=== PATIENT | male | born 1950 | race Caucasian/White ===

== ENCOUNTER 2019-08-17 08:26 | Outpatient (CLI) | payer MEDICARE, MEDICAID, SELFPAY ==
--- NOTE | 2019-08-17 08:33 | MR_ITS ---
WS: [id number] MRI LUMBAR SPINE NONCONTRAST TECHNIQUE: Sagittal T1, T2 and STIR imaging. Axial T1 and T2 imaging. CLINICAL INFORMATION: OTHER SPONDYLOSIS W/RADICULOPATHY LUMBAR REGION COMPARISON: None. FINDINGS: Mild lumbar curve. No acute compression. Mild disc bulging L4-L5 and L5-S1. L1-L2: Tiny right pericentral protrusion. Spinal canal and foramen are patent. Mild facet arthropathy . L2-L3: Mild annular bulging with slight effacement of ventral thecal sac. Spinal canal and foramen ar e patent. Mild facet arthropathy. L3-L4: Mild annular bulging with slight effacement of ventral thecal sac. Spinal canal and foramen ar e patent. Mild facet arthropathy. L4-L5: Mild disc bulging with small broad-based central protrusion. Mild central canal stenosis. Narr owing of the subarticular recess bilaterally. Encroachment traversing L5 nerve roots. Mild bilateral foraminal narrowing. Mild facet arthropathy. L5-S1: Mild annular bulging with effacement of ventral thecal sac. Mild central canal stenosis. Encro achment traversing right greater than left S1 nerve roots. Foramen are patent. Mild facet arthropathy . Tiny central protrusion the lower thoracic spine at T11-T12 and T12-L1. Partially visualized left caitlin al cyst measuring 3.8 cm MR/MR lumbar spine wo con* [id number] IMPRESSION: 1. Mild lumbar curve. No acute compression. No high-grade central canal stenos is. 2. Disc bulging L4-5 with mild central canal stenosis and narrowing of the sub articular recess bilaterally. Mild bilateral foraminal narrowing at this level. 3. Annular bulging L5-S1 with slight encroachment traversing right greater anthony n left S1 nerve roots. Mild central canal stenosis. 4. Mild facet arthropathy L4-L5 and L5-S1. 5. Partially visualized left renal cyst measuring 3.8 cm.
== END 2019-08-17 08:27 | disposition home or self-care (01) ==
LOC: RAD 08:31
PROVIDERS: Family Provider Family Medicine; PCP Family Medicine; Visit Provider Family Medicine
DX: M47.26 Other spondylosis with radiculopathy, lumbar region (principal)
CPT/HCPCS: 72148

== ENCOUNTER 2019-08-22 19:39 | Inpatient (IN) | payer MEDICARE, MEDICAID, SELFPAY ==
[2019-08-22 19:56] VITALS: BP 141/112; PULSE 124; RESP 18; TEMP 36.7; O2SAT 95; BMI 27.3
[2019-08-22 20:34] LABS: Rapid Strep A Test Negative (Negative)
--- NOTE | 2019-08-22 21:22 | ED_ITS ---
Entered by Elin Arriola, acting as scribe for Ingrid Bhat Shemar Aug 22, 2019 19:39 HPI - General Adult General: Chief complaint: General Medical Stated complaint: ETOH Time Seen by Provider: 08/22/19 21:21 Source: patient Mode of arrival: ambulatory Limitations: no limitations History of Present Illness: HPI narrative: 68 yo m came to the er by [facility]. Onset was today. Pt states that his nephew a few days ago and started drinking again. Pt states that he is afraid and that he is going through withdraws. Pt states that when he stops drinking he starts to shake, seen things that were not there and seizures. complaint: etoh Onset (ago): day(s) (today) Radiation: non-radiation Severity: mild Relieving factors: none Exacerbating factors: none Associated symptoms: Reports no associated symptoms Treatments prior to arrival: none Review of Systems General: Reports: other (negative unless marked) Psych: Denies: suicidal ideation or homicidal ideation PFSH ED PFSH: Statuses (acute, chronic, etc) shown below reflect problem list status as previously entered and may not be historically accurate Medical History (Updated 08/22/19 @ 23:51 by Merritt Buckner MD) Alcohol withdrawal (Acute) Anxiety and depression (Acute) BPH (benign prostatic hyperplasia) (Acute) Chronic back pain (Acute) GERD (gastroesophageal reflux disease) (Acute) Hypertension (Acute) Surgical History (Updated 08/22/19 @ 23:44 by Merritt Buckner MD) History of back surgery (Acute) Social History (Updated 08/22/19 @ 23:45 by Merritt Buckner MD) Smoking and tobacco status: current every day smoker Alcohol intake: current Alcohol intake frequency: 3 or more drinks per day Alcohol type: hard liquor Substance/Drug Use: never Physical Exam Const: COMMON NORMALS: oriented x3 and alert EXAM LIMITATIONS: no altered mental status GENERAL APPEARANCE: cooperative, well kempt and well developed ORIENTATION/CONSCIOUSNESS: Yes oriented to person, Yes oriented to place and Yes oriented to time HENMT: COMMON NORMALS: normocephalic, head/scalp atraumatic, hearing grossly normal bilaterally, external ears normal, EAC's normal, external nose normal and moist oral mucous membranes HEAD & SCALP: normal to inspection, normocephalic and atraumatic FACE & SINUS: normal facial exam and face symmetric NOSE: external nose normal and nares normal EXTERNAL EAR: Yes external ears normal EXTERNAL AUDITORY CANAL: EAC's normal MOUTH: oral and palatal mucosa normal and tongue normal Eye: COMMON NORMALS: PERRL, EOMs intact bilaterally, conjunctivae normal and no scleral icterus GENERAL EYE: normal appearance of both eyes and normal light reflex CONJUNCTIVA: Yes conjunctivae normal SCLERA: sclerae normal CORNEA: Yes corneas normal PUPIL: Yes PERRL DIRECT OPHTHALMOSCOPY: Yes normal light reflex Neck/C-Spine: COMMON NORMALS: full ROM, no lymphadenopathy, supple, no meningeal signs and no JVD GENERAL: Yes normal visual inspection and Yes trachea midline CERVICAL SPINE: Yes cervical ROM normal Chest: COMMONS NORMALS: inspection of chest normal and palpation of chest normal Resp: COMMON NORMALS: normal respiratory effort, no retractions, no use of accessory muscles and clear to auscultation bilaterally EFFORT & INSPECTION: Yes able to speak in complete sentences AUSCULTATION: clear to auscultation bilaterally Cardio: COMMON NORMALS: no JVD, regular rate, regular rhythm, S1 normal heart sound, S2 normal heart sound, no gallops, no clicks, no murmurs and no rub JUGULAR VENOUS DISTENTION: no JVD RATE: regular rate RHYTHM: regular rhythm HEART SOUNDS: S1 normal and S2 normal GI: COMMON NORMALS: soft to palpation, non-tender, no hepatosplenomegaly and no masses INSPECTION: Yes normal to inspection PALPATION: Yes soft and Yes no hepatosplenomegaly : COMMON NORMALS: Yes no CVA tenderness BLADDER/KIDNEY EXAM: Yes no CVA tenderness Back/Pelvis: COMMON NORMALS: no CVA tenderness, thoracic and lumbar spine normal to inspection, no thoracic nor lumbar tenderness and thoraco-lumbar ROM normal Extremity: COMMON NORMALS: normal to inspection, full ROM, normal capillary refill, no joint enlargement, no clubbing, cyanosis or edema and no calf tenderness Neuro: COMMON NORMALS: oriented x3 and moves all extremities SENSORIUM/ORIENTATION: Yes alert, Yes oriented to person, Yes oriented to place and Yes oriented to time MENINGEAL SIGNS: Yes no meningeal signs OTHER: Patient tremulous with shaking. Is able to ambulate without ataxia. Psych: COMMON NORMALS: mental status grossly normal, thought process normal, cooperative, affect normal, speech normal and activity/motor behavior normal APPEARANCE: Yes well kempt SPEECH: Yes normal speech THOUGHT PROCESS: normal thought process Skin: COMMON NORMALS: no rashes or lesions noted, skin turgor normal, no jaundice, no petechiae and no mottling GENERAL SKIN EXAM: no rashes or lesions noted and turgor normal Course Vital Signs: Vital signs: Vital Signs Temperature 97.9 F 08/23/19 02:00 Pulse Rate 99 08/23/19 10:00 Respiratory Rate 24 H 08/23/19 10:00 Blood Pressure 158/89 08/23/19 10:00 Pulse Oximetry 96 08/23/19 08:00 [facility] - General Adult Lab Data: Labs: Lab Results 08/22/19 08/22/19 08/22/19 Range/Units 20:08 22:00 22:15 WBC 12.3 H (4.0-10.0) 10^3/ uL RBC 5.25 (4.1-5.3) 10^6/u L Hgb 14.7 (11.7-16.6) g/dL Hct 45.2 (42.0-52.0) % MCV 86.1 (80-94) fL MCH 28.0 (28.0-34.0) pg MCHC 32.5 (30.0-36.0) g/dL RDW 15.0 (12.1-15.1) % Plt Count 159 (130-400) 10^3/c mm MPV 10.1 (7.4-10.4) fL Neut % (Auto) 78.2 % Lymph % (Auto) 12.7 % Dickson % (Auto) 8.1 % Eos % (Auto) 0.4 % Baso % (Auto) 0.2 % Neut # (Auto) 9.6 H (1.8-7.7) 10^3/u L Lymph # (Auto) 1.6 (0.8-4.8) 10^3/u L Dickson # (Auto) 1.0 H (0.2-0.9) 10^3/u L Eos # (Auto) 0.1 (0.0-0.8) 10^3/u L Baso # (Auto) 0.0 (0.0-0.1) 10^3/u L Nucleated RBC % (a uto) 0 % Nucleated RBCs # 0.0 /100WBC Specimen Type Arterial Sample Site Radial, right ABG pH 7.50 H (7.35-7.45) ABG pCO2 28.1 L (35-45) mmHg ABG pO2 84.6 (80.0-100.0) mmH g ABG HCO3 22.1 (22-26) mmol/L ABG Base Excess 0.3 (-2.0-2.0) mmol/ L Kevin Test Pos Hematocrit 47.0 (42-52) % O2 Delivery Device Room air Oven Attendant ID harkr Sodium (136-145) mmol/L Potassium (3.5-5.1) mmol/L Chloride (98-107) mmol/L Carbon Dioxide (22-29) mmol/L Anion Gap (5-19) BUN (8-23) mg/dL Creatinine (0.7-1.2) mg/dL GFR Calculation (90-130) mL/min Glucose (65-115) mg/dL Calcium (8.5-10.5) mg/dL Magnesium (1.7-2.3) mg/dL Total Bilirubin (0.15-1.2) mg/dL AST (0-40) U/L ALT (0-41) U/L Alkaline Phosphata se (40-130) IU/L Creatine Kinase (39-308) U/L Total Protein (6.6-8.7) g/dL Albumin (3.5-5.2) g/dL Globulin (1.3-4.6) g/dL Ethyl Alcohol (0-10) mg/dL Serum Ketones (Negative) Group A Strep Rapi d Negative (Negative) 08/22/19 08/22/19 Range/Units 22:15 22:15 WBC (4.0-10.0) 10^3/ uL RBC (4.1-5.3) 10^6/u L Hgb (11.7-16.6) g/dL Hct (42.0-52.0) % MCV (80-94) fL MCH (28.0-34.0) pg MCHC (30.0-36.0) g/dL RDW (12.1-15.1) % Plt Count (130-400) 10^3/c mm MPV (7.4-10.4) fL Neut % (Auto) % Lymph % (Auto) % Dickson % (Auto) % Eos % (Auto) % Baso % (Auto) % Neut # (Auto) (1.8-7.7) 10^3/u L Lymph # (Auto) (0.8-4.8) 10^3/u L Dickson # (Auto) (0.2-0.9) 10^3/u L Eos # (Auto) (0.0-0.8) 10^3/u L Baso # (Auto) (0.0-0.1) 10^3/u L Nucleated RBC % (a uto) % Nucleated RBCs # /100WBC Specimen Type Sample Site ABG pH (7.35-7.45) ABG pCO2 (35-45) mmHg ABG pO2 (80.0-100.0) mmH g ABG HCO3 (22-26) mmol/L ABG Base Excess (-2.0-2.0) mmol/ L Kevin Test Hematocrit (42-52) % O2 Delivery Device Oven Attendant ID Sodium 135 L (136-145) mmol/L Potassium 3.3 L (3.5-5.1) mmol/L Chloride 99 (98-107) mmol/L Carbon Dioxide 20 L (22-29) mmol/L Anion Gap 19.3 H (5-19) BUN 26 H (8-23) mg/dL Creatinine 1.1 (0.7-1.2) mg/dL GFR Calculation 66.6 L (90-130) mL/min Glucose 100 (65-115) mg/dL Calcium 9.4 (8.5-10.5) mg/dL Magnesium 1.5 L (1.7-2.3) mg/dL Total Bilirubin 0.7 (0.15-1.2) mg/dL AST 81 H (0-40) U/L ALT 44 H (0-41) U/L Alkaline Phosphata se 83 (40-130) IU/L Creatine Kinase 1070 H* (39-308) U/L Total Protein 6.6 (6.6-8.7) g/dL Albumin 3.7 (3.5-5.2) g/dL Globulin 2.9 (1.3-4.6) g/dL Ethyl Alcohol 138 H (0-10) mg/dL Serum Ketones Negative (Negative) Group A Strep Rapi d (Negative) Discharge Plan Discharge Patient Disposition: Placed in Observation Admit Provider: Merritt Buckner Discharge Date/Time: 08/23/19 01:49 Coding Level of Care Code ED Activities Concierge for Chg Fwd Exam Problem Focused The documentation recorded by the Flako jackson Stephanie Lyn, accurately reflects the service I personally performed and the decisions made by Home cristina Eli N Aug 22, 2019 19:39
--- NOTE | 2019-08-22 21:48 | XR_ITS ---
WS: [id number] Portable AP upright chest, 08/22/2019 Clinical Data: cough Comparison: Portable chest, 02/20/2019 Findings: No nodules, masses or effusions are seen. The heart is normal. The pulmonary vascularity is not increased. No pneumonia or pneumothorax is seen. The aortic arch and descending aorta show mild tortuosity. XR/XR chest 1V portable [id number] Impression: Atherosclerosis.
--- NOTE | 2019-08-22 21:49 | ECG_ITS ---
Measurements Intervals [place] Rate: 110 P: 51 CT: 156 QRS: 13 QRSD: 98 T: -7 QT: 355 QTc: 480 SINUS TACHYCARDIA POSSIBLE INFERIOR MYOCARDIAL INFARCTION , PROBABLY OLD [30 ms Q WAVE IN II/aVF] ABNORMAL RHYTHM ECG Compared to ECG 12/23/2018 11:53:18 Myocardial infarct finding now present Electronically Signed On 08-23-2019 16:29:56 RESIDENTIAL CAREGIVER by Eb Alvarenga M.D. [email or web address]
[2019-08-22] MEDS: ondansetron 2 mg/ML SDV 2 mL 4 MG IVP (22:00)
[2019-08-22] MEDS: sodium chloride 0.9% 2,449.41 ML 2449.4 ML IV (22:06)
[2019-08-22 22:11] LABS: ABG PCO2 28.1 mmHg (35-45); Base Excess ABG 0.3 mmol/L (-2.0-2.0); Blood Gas Allen Test Pos; Blood Gas Sample Site Radial, right; Blood Gas Sample Type Arterial; HCO3 ABG 22.1 mmol/L (22-26); Oxygen Device ROOM AIR; PO2 ABG 84.6 mmHg (80.0-100.0)
[2019-08-22] MEDS: LORazepam 2 mg/mL INJ 1 mL 1 MG IVP ×2 (22:23→23:01)
[2019-08-22 22:24] LABS: Basophils % 0.2 %; Eosinophils # 0.1 10^3/uL (0.0-0.8); Eosinophils % 0.4 %; Hematocrit 45.2 % (42.0-52.0); Hemoglobin 14.7 g/dL (11.7-16.6); Lymphocytes # 1.6 10^3/uL (0.8-4.8); Lymphocytes % 12.7 %; Mean Corpuscular HGB Conc 32.5 g/dL (30.0-36.0); Mean Corpuscular Volume 86.1 fL (80-94); Mean Platelet Volume 10.1 fL (7.4-10.4); Monocytes % 8.1 %; Neutrophils # 9.6 10^3/uL (1.8-7.7); Neutrophils % 78.2 %; Nucleated Red Blood Cells % 0 %; Platelet Count 159 10^3/cmm (130-400); Red Blood Count 5.25 10^6/uL (4.1-5.3); White Blood Count 12.3 10^3/uL (4.0-10.0)
[2019-08-22 22:39] LABS: Alanine Aminotransferase 44 U/L (0-41); Albumin Level 3.7 g/dL (3.5-5.2); Alcohol Level 138 mg/dL (0-10); Alkaline Phosphatase 83 IU/L (40-130); Anion Gap 19.3 (5-19); Aspartate Amino Transferase 81 U/L (0-40); Blood Urea Nitrogen 26 mg/dL (8-23); Calcium 9.4 mg/dL (8.5-10.5); Carbon Dioxide 20 mmol/L (22-29); Chloride 99 mmol/L (98-107); Globulin 2.9 g/dL (1.3-4.6); Glomerular Filtration Rate 66.6 mL/min (90-130); Glucose 100 mg/dL (65-115); Magnesium 1.5 mg/dL (1.7-2.3); Potassium 3.3 mmol/L (3.5-5.1); Sodium 135 mmol/L (136-145); Total Bilirubin 0.7 mg/dL (0.15-1.2); Total Protein 6.6 g/dL (6.6-8.7)
[2019-08-22 22:45] LABS: Creatine Phosphokinase 1070 U/L (39-308)
[2019-08-22] MEDS: magnesium sulfate premix 2 GM/50 ML PIGGYBACK IV (23:02)
[2019-08-22 23:03] LABS: Ketone (Acetest) Serum Negative (Negative)
[2019-08-22] MEDS: LORazepam 2 mg/mL INJ 1 mL IVP (23:24)
[2019-08-22] MEDS: chlordiazePOXIDE 25 mg Capsule PO (23:29)
--- NOTE | 2019-08-22 23:36 | P.HP_ITS ---
Providers/Chief Complaint Primary Care Provider: Randal Peralta MD Chief Complaint: DTS History of Present Illness Julio Mccann is a 68 year old male with a past medical history of hypertension, depression anxiety, hyperlipidemia, BPH, history of alcohol dependence, history of delirium tremens and alcohol withdrawal seizures who p resents to the emergency room due to the shakes. 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 Denies other drug use. Does use Ultram for back pain. Does use Xanax for anxiety. Denies using medication with alcohol. Patient states that over the last month he has lost 2 nephews, one nephew a few weeks ago 37 years old, another nephew on his sister's side because of alcohol related disease. Patient states that he has felt down, depressed and sad. Denies current history of suicidal ideation. But does have a history of suicidal ideation in the past. No history of attempts. Denies homicidal ideation. Patient denies a history of alcohol cirrhosis. Denies a history of esophageal varices. Denies history of hemoptysis. Currently patient states that he feels very nauseous, has vomited, has significant tremors of his entire extremities, is having intermittent episodes of difficulty swallowing, is having palpitations, intermittent episodes of chest pain, is having visual and tactile hallucinations, is feeling anxious, no diarrhea, no abdominal pain. Review of Systems Const: Denies: fever, chills, fatigue or malaise Eyes: Reports: other (Visual hallucinations); Denies: change in vision ENMT: Reports: bad breath, disequilibrium and other (Dysphagia); Denies: nasal congestion Card: Reports: chest pain and palpitations Resp: Denies: shortness of breath, productive cough, non-productive cough or wheezing GI: Reports: nausea and vomiting; Denies: abdominal pain, vomiting blood, diarrhea, constipation, blood in stool or black tarry stool : Denies: flank pain, difficulty urinating, painful urination or urinary frequency Musc: Denies: neck pain or back pain Skin/Breast: Denies: rash Neuro: Reports: frequent falls; Denies: headache, dizziness or vertigo Psych: Reports: anxiety, depression, visual hallucinations and tactile hallucinations; Denies: auditory hallucinations, suicidal ideation or homicidal ideation Endo: Reports: excessive sweating; Denies: excessive urination or excessive thirst Medications/Allergies Home Medications Medication Instructions Recorded Confirmed Last Taken Type No Known Home Medications 08/22/19 08/22/19 Unknown History Allergies Allergy/AdvReac Type Severity Reaction Status Date / Time No Known Allergies Allergy Verified 08/22/19 20:02 Additional Medication Information Additional Medication Information: Patient states that he uses Klonopin, unsure of the dose, supposed to be using once daily, but has not been using it Uses Ultram 50 mg 3 times daily Uses Flexeril once daily, unsure of the dose Uses gabapentin 600 mg in the morning, 300 mg the afternoon, 200 mg at bedtime States that he uses 3 different blood pressure medications but is unsure which ones PFSH Acute PFSH: Statuses (acute, chronic, etc) shown below reflect problem list status as previously entered and may not be historically accurate Medical History (Updated 08/22/19 @ 23:51 by Merritt Buckner MD) Alcohol withdrawal (Acute) Anxiety and depression (Acute) BPH (benign prostatic hyperplasia) (Acute) Chronic back pain (Acute) GERD (gastroesophageal reflux disease) (Acute) Hypertension (Acute) Surgical History (Updated 08/22/19 @ 23:44 by Merritt Buckner MD) History of back surgery (Acute) Social History (Updated 08/22/19 @ 23:45 by Merritt Buckner MD) Smoking and tobacco status: current every day smoker Alcohol intake: current Alcohol intake frequency: 3 or more drinks per day Alcohol type: hard liquor Substance/Drug Use: never Vitals/I&O/Wt Last Vital Signs Temp 98.1 F 08/22/19 19:56 Pulse 124 H 08/22/19 19:56 Resp 18 08/22/19 19:56 BP 141/112 08/22/19 19:56 Pulse Ox 95 08/22/19 19:56 Weight last 48 hrs Weight 81.647 kg Physical Exam Const: COMMON NORMALS: oriented x3 GENERAL APPEARANCE: cooperative, anxious and disheveled HENMT: COMMON NORMALS: normocephalic Eye: COMMON NORMALS: PERRL and EOMs intact bilaterally Neck/C-Spine: COMMON NORMALS: full ROM and no lymphadenopathy Lymph: LYMPHATIC: no lymphadenopathy noted Chest: COMMONS NORMALS: inspection of chest normal Resp: COMMON NORMALS: normal respiratory effort, no retractions, no use of accessory muscles, clear to auscultation bilaterally and percussion normal Cardio: COMMON NORMALS: no JVD, S1 normal heart sound, S2 normal heart sound, no clicks, no murmurs, no rub and peripheral pulses 2+ throughout RATE: tachycardic RHYTHM: regular rhythm GI: COMMON NORMALS: normal to inspection, nondistended, normoactive bowel sounds, soft to palpation and non-tender : COMMON NORMALS: Yes no CVA tenderness Back/Pelvis: COMMON NORMALS: no CVA tenderness Extremity: COMMON NORMALS: normal capillary refill, no clubbing, cyanosis or edema and no pedal edema Neuro: COMMON NORMALS: oriented x3, CN's II-XII intact bilaterally, moves all extremities and no focal motor deficits Psych: COMMON NORMALS: mental status grossly normal, denies homicidal ideation and denies suicidal ideation APPEARANCE: Yes unkempt ACTIVITY/MOTOR BEHAVIOR: Yes psychomotor agitation SPEECH: Yes rapid THOUGHT CONTENT: Yes normal thought content, No suicidality and No homicidality Skin: COMMON NORMALS: no rashes or lesions noted and no jaundice Data : 08/22/19 22:15 08/22/19 22:15 A&P Assessment and plan (1) Alcohol withdrawal: -Patient currently CIWA score is 16, severe alcohol withdrawal, with visual hallucinations, tactile hallucinations, tachycardia, hypertension, tachypnea, diaphoresis, nausea, vomiting, intermittent episodes of dysphasia, chest pain, palpitations -In the emergency room patient has received a total of 4 mg of Ativan, 100 mg of Librium, still has a CIWA score of approximately 16 -Has a history of alcohol withdrawal seizures and delirium tremens -I am very worried about patient's high risk of delirium tremens, currently not in the window as last alcohol drink was over 12 hours ago -Patient is agreeable to elective intubation and mechanical ventilation if required Plan: -CIWA protocol, thiamine, folic acid, banana bag -Librium 50 mg every 4 hours -If patient CIWA score remains greater than 16, will give him a dose of Versed as needed -If patient becomes agitated, might require soft restraints -N.p.o., aspiration precautions, seizure precautions, neurochecks -Replete potassium, replete magnesium -Patient is okay with elective intubation and mechanical ventilation if CIWA greater than 16, and difficult to control Status: Acute Code(s): F10.239 - Alcohol dependence with withdrawal, unspecified (2) Anxiety and depression: Status: Acute Code(s): F41.9 - Anxiety disorder, unspecified; F32.9 - Major depressive disorder, single episode, unspecified (3) BPH (benign prostatic hyperplasia): Status: Acute Code(s): N40.0 - Benign prostatic hyperplasia without lower urinary tract symptoms (4) Hypertension: Currently hypertensive urgency secondary to alcohol withdrawal Patient takes 3 blood pressure medications at home but is unsure which ones Start metoprolol 50 twice daily Norvasc 5 mg once daily Will avoid nephrotoxic agents given elevated CPK, and risk of nephropathy Labetalol as needed If blood pressure remains elevated will have to start Cardene drip Status: Acute Code(s): I10 - Essential (primary) hypertension (5) GERD (gastroesophageal reflux disease): Status: Acute Code(s): K21.9 - Gastro-esophageal reflux disease without esophagitis (6) Chronic back pain: Status: Acute Code(s): M54.9 - Dorsalgia, unspecified; G89.29 - Other chronic pain (7) Hypokalemia: Will replete Status: Acute Code(s): E87.6 - Hypokalemia (8) Hypomagnesemia: Will replete Status: Acute Code(s): E83.42 - Hypomagnesemia (9) Rhabdomyolysis: Secondary to fall, and alcohol withdrawal Will receive IV hydration, trend CPK Status: Acute Code(s): M62.82 - Rhabdomyolysis Attestations Medical Necessity Statement*: Patient requires inpatient admission, greater than 2 midnights, for severe alcohol withdrawal, rhabdomyolysis, hypomagnesemia, hypokalemia, dehydration Coding Level of Care Code Acute Wire Mesh Filter Fabricator for [facility] Fwd Diagnoses Alcohol withdrawal F10.239 Anxiety and depression F41.9; F32.9 BPH (benign prostatic hyperplasia) N40.0 Hypertension I10 GERD (gastroesophageal reflux disease) K21.9 Chronic back pain M54.9; G89.29 Hypokalemia E87.6 Hypomagnesemia E83.42 Rhabdomyolysis M62.82
[2019-08-22 23:39] VITALS: BP 204/142; PULSE 108; RESP 15; O2SAT 93
[2019-08-23] VITALS (42 sets, daily range): BP systolic 133–167; BP diastolic 78–107; PULSE 77–122; RESP 14–30; TEMP 36.6–36.9; O2SAT 90–97
--- NOTE | 2019-08-23 00:05 | PC.NURSE ---
Patient is gowned.
--- NOTE | 2019-08-23 00:34 | PC.NURSE ---
Patient requested food, okayed by Dr. Kumar, sandwich was given.
[2019-08-23] MEDS: LORazepam 2 mg/mL INJ 1 mL 1 MG IVP (01:35)
--- NOTE | 2019-08-23 01:53 | US_ITS ---
WS: [id number] RIGHT UPPER QUADRANT ULTRASOUND HISTORY: liver cirrhosis COMPARISON: 02/14/2014 Liver: 17.4 cm in length. Liver is mildly enlarged. Diffuse coarsened echotexture. Surface of the artur er is slightly irregular. No mass identified. The entire liver cannot be evaluated due to attenuation . No biliary dilatation. Gallbladder: Normally distended gallbladder with no stones or wall thickening. CBD: 5.1 mm Pancreas: Normal size and echogenicity. Right kidney: 11.9 cm in length. Normal size kidney. Focal cortical thinning and scarring in the cent ral kidney. No obstruction or solid mass. Aorta and IVC: Unremarkable. No ascites. US/US liver [id number] IMPRESSION: 1. Moderate hepatic steatosis. Additional changes suspicious for cirrhosis. 2. Normal gallbladder. 3. Focal cortical scar mid RIGHT kidney, unchanged since 02/20/2019.
--- NOTE | 2019-08-23 01:53 | ECG_ITS ---
Measurements Intervals [place] Rate: 87 P: 53 SD: 163 QRS: 14 QRSD: 93 T: 51 QT: 388 QTc: 468 SINUS RHYTHM WARNING: DATA QUALITY MAY AFFECT INTERPRETATION Compared to ECG 12/23/2018 11:53:18 Sinus tachycardia no longer present Electronically Signed On 08-23-2019 16:31:27 KRAFT MILL OPERATOR by Eb Alvarenga M.D. [id number]
[2019-08-23] MEDS: chlordiazePOXIDE 25 mg Capsule 50 MG PO ×6 (02:22→21:02)
[2019-08-23] MEDS: metoprolol tartrate 25 mg Tablet PO ×3 (02:22→18:43)
[2019-08-23] MEDS: folic acid 1 MG, multivitamin inj 10 ML, thiamine 100 MG in sodium chloride 0.9% 1,000 ML 252.8 MG IV (02:22)
[2019-08-23] MEDS: sodium chloride 0.9% 1,000 ML 125 ML IV ×3 (02:23→21:00)
[2019-08-23 02:30] LABS: Gamma Glutamyl Transferase 23 U/L (61-)
[2019-08-23 02:31] LABS: Ammonia 34 umol/L (16-60); Troponin(5th) Baseline 14 ng/mL (0-15)
[2019-08-23 03:02] LABS: INR 1.15 (0.8-1.2)
[2019-08-23] MEDS: LORazepam 2 mg/mL INJ 1 mL IM (04:30)
[2019-08-23 04:52] LABS: Basophils % 0.2 %; Eosinophils # 0.1 10^3/uL (0.0-0.8); Eosinophils % 1.3 %; Hematocrit 39.7 % (42.0-52.0); Hemoglobin 12.9 g/dL (11.7-16.6); Lymphocytes # 1.8 10^3/uL (0.8-4.8); Lymphocytes % 19.7 %; Mean Corpuscular HGB Conc 32.5 g/dL (30.0-36.0); Mean Corpuscular Hemoglobin 28.9 pg (28.0-34.0); Monocytes # 0.8 10^3/uL (0.2-0.9); Monocytes % 8.7 %; Neutrophils # 6.3 10^3/uL (1.8-7.7); Neutrophils % 69.9 %; Nucleated Red Blood Cells % 0 %; Platelet Count 131 10^3/cmm (130-400); Red Blood Count 4.46 10^6/uL (4.1-5.3); Red Cell Distribution Width 15.2 % (12.1-15.1); White Blood Count 9.1 10^3/uL (4.0-10.0)
[2019-08-23 05:10] LABS: Magnesium 1.8 mg/dL (1.7-2.3); Phosphorus 2.1 mg/dL (2.5-4.5)
[2019-08-23 05:11] LABS: Alanine Aminotransferase 35 U/L (0-41); Alkaline Phosphatase 68 IU/L (40-130); Anion Gap 13.9 (5-19); Aspartate Amino Transferase 69 U/L (0-40); Blood Urea Nitrogen 20 mg/dL (8-23); Calcium 8.7 mg/dL (8.5-10.5); Carbon Dioxide 21 mmol/L (22-29); Chloride 107 mmol/L (98-107); Creatinine Clr Calc Pharmacy 81.8876; Globulin 2.4 g/dL (1.3-4.6); Glomerular Filtration Rate 83.9 mL/min (90-130); Glucose 105 mg/dL (65-115); Potassium 3.9 mmol/L (3.5-5.1); Sodium 138 mmol/L (136-145); Total Bilirubin 0.9 mg/dL (0.15-1.2); Total Protein 5.4 g/dL (6.6-8.7)
[2019-08-23 05:12] LABS: Troponin 5 2HR 13.87 ng/mL (0-15)
[2019-08-23 05:13] LABS: Creatine Phosphokinase 1187 U/L (39-308); Troponin 5 2HR Delta -0.13 ABS# (0-10)
--- NOTE | 2019-08-23 05:40 | ECG_ITS ---
Measurements Intervals [place] Rate: 109 P: 56 VT: 162 QRS: 4 QRSD: 94 T: 42 QT: 353 QTc: 475 SINUS TACHYCARDIA ABNORMAL RHYTHM ECG WARNING: DATA QUALITY MAY AFFECT INTERPRETATION Compared to ECG 12/23/2018 11:53:18 No significant changes Electronically Signed On 08-23-2019 16:37:50 EARLY BREASTFEEDING CARE SPECIALIST by Eb Alvarenga M.D. [id number]
[2019-08-23 08:47] LABS: Troponin 5 6HR 16.09 ng/L (0-15); Troponin 5 6HR Delta 2.09 ng/L (0-12)
[2019-08-23] MEDS: folic acid 1 mg Tablet PO (08:48)
[2019-08-23] MEDS: amlodipine 10 mg Tablet PO (08:48)
[2019-08-23] MEDS: venlafaxine 75 mg Tablet PO (08:48)
[2019-08-23] MEDS: thiamine 100 mg Tablet PO (08:48)
[2019-08-23] MEDS: LORazepam 2 mg Tablet PO ×2 (08:48→11:31)
[2019-08-23] MEDS: multivitamin therapeutic Tablet 1 TAB PO (08:49)
--- NOTE | 2019-08-23 11:53 | PC.CHAP ---
Pastoral Care Encounter/Spiritual Assessment Type of Contact [] Declined rubber trimmer visit [] Patient/Family/Request visit [] Outpatient visit [] Follow-up visit [] Physician referral [] Code/Alert [] Routine visit [] Staff referral [] Actively dying [x] Patient sleeping [] Family support [] [] Out of room [] Palliative care [] [] Receiving care in room [] Pre-surgical visit [] Trauma [] Long length of stay [] ICU visit [] Other: Relational/Emotional Strength [] Patient feels connected with others/family/visitors/staff [] Distress [] Loneliness/isolation [] Abandonment Spirituality of Patient [] Person of Sepideh [] Attends Yazdanism of their Sepideh [] Believes in Prayer [] Reads Bible or Congregation materials [] There are Spiritual issues to be addressed Commissioner Of Conciliation Interventions [x] Prayer [] Active listening [] Non-anxious presence [] Spiritual/emotional support [] Crisis/trauma care [] Spiritual counseling [] Bereavement support [] Provided bereavement packet [] Provided Bible/devotional materials [] Provided toy/stuffed animal, coloring book to patient or family member [] Provided Communion [] Anointing/[place] [] Salvation [] Completed spiritual assessment [] Other: Impact on Illness or Injury [] Angry [] Fearful [] Anxious [] Often cries [] Exhaustion [] Unable to work [] Unable to attend methodist [] Unable to walk/stand [] Unable to read [] Unable to drive [] Unable to eat/drink [] Unable to sleep [] Unable to be with family [] Patient intubated [] Other: Summary Patient was sleeping and prayer was provided. Time spent with patient 2 minutes
[2019-08-23] MEDS: gabapentin 300 mg Capsule PO (13:52)
--- NOTE | 2019-08-23 18:04 | PM.PN ---
Subjective Subjective: Interval history: Chart reviewed, patient seen and examined, extremely unsteady and unsafe on his feet, requiring frequent redirection. Due to significant fall risk will request one-on-one monitoring. Aware that he is in the hospital but then quickly falls asleep. Medications: Reviewed: Yes Medication Review Details: Current Medications Generic Name Dose Route Start Last Admin Trade Name Freq PRN Reason Stop Dose Admin Amlodipine Besylat e 10 mg 08/23/19 09:00 08/23/19 08:48 Norvasc PO 10 mg DAILY DEION Administration Chlordiazepoxide 50 mg 08/23/19 01:53 08/23/19 13:51 Librium PO 50 mg Q4H DEION Administration Folic Acid 1 mg 08/23/19 09:00 08/23/19 08:48 Folic Acid PO 1 mg DAILY DEION Administration Gabapentin 300 mg 08/23/19 12:00 08/23/19 13:52 Neurontin PO 300 mg DAILY@1200 DEION Administration Sodium Chloride 1,000 mls @ 125 m ls/hr 08/23/19 01:53 08/23/19 13:52 Sodium Chloride 0.9% IV 125 mls/hr .Q8H DEION Administration Lorazepam 2 mg 08/23/19 01:53 08/23/19 04:30 Ativan IM 2 mg PROTOCOL PRN Administration ALCOWD Protocol Lorazepam 2 mg 08/23/19 01:53 08/23/19 11:31 Ativan PO 2 mg PROTOCOL PRN Administration WITHDRAWAL Protocol Metoprolol Tartrat e 25 mg 08/23/19 01:53 08/23/19 08:48 Lopressor PO 25 mg BID DEION Administration Multivitamins Ther apeutic 1 tab 08/23/19 09:00 08/23/19 08:49 Multivitamin Tab PO 1 tab DAILY DEION Administration Thiamine Mononitra te 100 mg 08/23/19 09:00 08/23/19 08:48 Vitamin B-1 PO 100 mg DAILY DEION Administration Venlafaxine HCl 75 mg 08/23/19 09:00 08/23/19 08:48 Effexor PO 75 mg DAILY DEION Administration Vitals/I&O/Wt Last Vital Signs Temp 97.9 F 08/23/19 02:00 Pulse 94 08/23/19 14:00 Resp 24 H 08/23/19 14:00 BP 139/90 08/23/19 14:00 Pulse Ox 96 08/23/19 14:00 08/23/19 08/23/19 08/23/19 06:59 14:59 22:59 Intake Total 2499.41 / 2499.41 2851.2 / 2851.2 Balance 2499.41 / 2499.41 2851.2 / 2851.2 Weight last 48 hrs Weight 81.647 kg Physical Exam Const: COMMON NORMALS: no apparent distress GENERAL APPEARANCE: cooperative, comfortable and lethargic ORIENTATION/CONSCIOUSNESS: Yes awake, Yes oriented to place, Yes confused and Yes lethargic HENMT: COMMON NORMALS: normocephalic, head/scalp atraumatic, hearing grossly normal bilaterally and moist oral mucous membranes HEAD & SCALP: normocephalic and atraumatic Eye: COMMON NORMALS: PERRL, EOMs intact bilaterally and conjunctivae normal CONJUNCTIVA: Yes conjunctivae normal PUPIL: Yes PERRL Neck/C-Spine: COMMON NORMALS: full ROM GENERAL: Yes normal visual inspection and Yes trachea midline Resp: COMMON NORMALS: normal respiratory effort, no retractions, no use of accessory muscles and clear to auscultation bilaterally EFFORT & INSPECTION: Yes able to speak in complete sentences, Yes symmetric chest movement and No tachypneic AUSCULTATION: clear to auscultation bilaterally Cardio: COMMON NORMALS: regular rate, regular rhythm, S1 normal heart sound, S2 normal heart sound and no murmurs RATE: regular rate RHYTHM: regular rhythm HEART SOUNDS: S1 normal and S2 normal GI: COMMON NORMALS: normal to inspection, nondistended, normoactive bowel sounds, soft to palpation and non-tender PALPATION: Yes soft Extremity: COMMON NORMALS: normal to inspection, full ROM and no clubbing, cyanosis or edema; negative for no pedal edema Neuro: COMMON NORMALS: moves all extremities, no focal motor deficits and no sensory deficits noted SENSORIUM/ORIENTATION: Yes oriented to place and Yes lethargic GAIT: Yes ataxic Psych: COMMON NORMALS: mental status grossly normal, thought process normal, cooperative, affect normal and speech normal SPEECH: Yes normal speech THOUGHT PROCESS: normal thought process Skin: COMMON NORMALS: no rashes or lesions noted, no jaundice, no petechiae and no mottling GENERAL SKIN EXAM: no rashes or lesions noted Data : 08/23/19 04:30 08/23/19 04:30 A&P Assessment and plan (1) Alcohol withdrawal: -Long history of chronic alcohol abuse; EtOH of 138 on admission -Very high risk for withdrawal, currently delirious; has prior hx of DTs, withdrawal seizures -Continue scheduled Librium, CIWA protocol -Continue multivitamins, thiamine, folic acid daily -Continue IVF hydration -Fall/aspiration/seizure precautions -currently protecting his airway, no need for supplemental oxygen; continue to close monitoring of respiratory status -VSS; continue to monitor Status: Acute Qualifiers: Complication of substance-induced condition: with delirium Qualified Code(s): F10.231 - Alcohol dependence with withdrawal delirium Code(s): F10.239 - Alcohol dependence with withdrawal, unspecified (2) Rhabdomyolysis: -Secondary to fall and likely alcohol withdrawal -CPK >1000 range; continue to trend -on IVF hydration -renal function wnl -continued fall risk, strict fall precautions Status: Acute Qualifiers: Rhabdomyolysis type: traumatic Encounter type: initial encounter Qualified Code(s): T79.6XXA - Traumatic ischemia of muscle, initial encounter Code(s): M62.82 - Rhabdomyolysis Additional A&P Information -HTN -Depression, anxiety -Hyperlipidemia -BPH -continue meds as ordered -cardiac diet as tolerated -DVT ppx with SCDs, no AC for now given continued high fall risk -Dispo: home -Code status: FULL code -continue ICU care due to need for close monitoring and high risk for continued alcohol withdrawal Attestations Medical Necessity Statement*: Patient requires hospitalization for continued management of acute alcohol withdrawal, rhabdomyolysis. Time Spent in Patient Care: Greater than 35 minutes (>than 50% of time spent in counselling and/or direct pt care on unit). Critical Care Time: The high probability of a clinically significant, sudden or life threatening deterioration of the patient's [cardiovascular] system(s) required my full and direct attention, intervention and personal management. The critical care time is as shown. This time is in addition to time spent performing any reported procedures but includes the following: [x] Data and vital sign review and interpretation [x] Patient assessment, examination and intervention [x] Documentation [x] Medication orders and management Critical Care Time (min): 15 Coding Level of Care Code Acute Orthopedic Physician for Soni Hilliard Diagnoses Alcohol withdrawal F10.231 Complication of substance-induced condition: with delirium Rhabdomyolysis T79.6XXA Rhabdomyolysis type: traumatic Encounter type: initial encounter
[2019-08-23] MEDS: gabapentin 300 mg Capsule 600 MG PO (21:01)
[2019-08-24] VITALS (15 sets, daily range): BP systolic 125–152; BP diastolic 74–101; PULSE 77–107; RESP 23–29; TEMP 36.6–37.1; O2SAT 86–100
[2019-08-24] MEDS: chlordiazePOXIDE 25 mg Capsule 50 MG PO ×5 (02:54→20:59)
--- NOTE | 2019-08-24 02:57 | PC.NURSE ---
patient has sitter at bedside. took oral meds this evening but had gotten agitted with iv normal saline. patient refused to have ivf hooked back up after returning from using bathroom.
[2019-08-24 05:42] LABS: Magnesium 1.9 mg/dL (1.7-2.3)
[2019-08-24] MEDS: gabapentin 300 mg Capsule 600 MG PO ×2 (07:05→20:59)
[2019-08-24] MEDS: LORazepam 2 mg Tablet PO ×3 (07:10→20:59)
[2019-08-24 07:48] LABS: Creatine Phosphokinase 365 U/L (39-308)
--- NOTE | 2019-08-24 09:10 | PM.PN ---
Subjective Subjective: Interval history: Patient seen and examined, seems to be more alert and oriented today. Requesting to go out and smoke. CPK trending down to the 300s so we will discontinue IV fluid hydration. Sitter at bedside. Medications: Reviewed: Yes Medication Review Details: Current Medications Generic Name Dose Route Start Last Admin Trade Name Freq PRN Reason Stop Dose Admin Amlodipine Besylat e 10 mg 08/23/19 09:00 08/23/19 08:48 Norvasc PO 10 mg DAILY DEION Administration Chlordiazepoxide 50 mg 08/23/19 01:53 08/24/19 02:54 Librium PO 50 mg Q4H DEION Administration Folic Acid 1 mg 08/23/19 09:00 08/23/19 08:48 Folic Acid PO 1 mg DAILY DEION Administration Gabapentin 300 mg 08/23/19 12:00 08/23/19 13:52 Neurontin PO 300 mg DAILY@1200 DEION Administration Gabapentin 600 mg 08/23/19 21:00 08/24/19 07:05 Neurontin PO 600 mg BID@ DEION Administration Lorazepam 2 mg 08/23/19 01:53 08/23/19 04:30 Ativan IM 2 mg PROTOCOL PRN Administration ALCOWD Protocol Lorazepam 2 mg 08/23/19 01:53 08/24/19 07:10 Ativan PO 2 mg PROTOCOL PRN Administration WITHDRAWAL Protocol Metoprolol Tartrat e 25 mg 08/23/19 01:53 08/23/19 18:43 Lopressor PO 25 mg BID DEION Administration Multivitamins Ther apeutic 1 tab 08/23/19 09:00 08/23/19 08:49 Multivitamin Tab PO 1 tab DAILY DEION Administration Thiamine Mononitra te 100 mg 08/23/19 09:00 08/23/19 08:48 Vitamin B-1 PO 100 mg DAILY DEION Administration Venlafaxine HCl 75 mg 08/23/19 09:00 08/23/19 08:48 Effexor PO 75 mg DAILY DEION Administration Vitals/I&O/Wt Last Vital Signs Temp 98.4 F 08/24/19 00:00 Pulse 101 H 08/24/19 07:45 Resp 26 H 08/24/19 07:14 BP 137/98 08/24/19 07:14 Pulse Ox 100 08/24/19 07:45 02/01/0408/24/19 08/24/19 22:59 06:59 14:59 Intake Total 1731.667 / 4582.867 979.583 / 5562.450 Output Total 900 / 900 400 / 1300 Balance 831.667 / 3682.867 579.583 / 4262.450 Weight last 48 hrs Weight 81.647 kg Physical Exam Const: COMMON NORMALS: no apparent distress and alert GENERAL APPEARANCE: cooperative and comfortable ORIENTATION/CONSCIOUSNESS: Yes awake and Yes oriented to place HENMT: COMMON NORMALS: normocephalic, head/scalp atraumatic, hearing grossly normal bilaterally and moist oral mucous membranes HEAD & SCALP: normocephalic and atraumatic Eye: COMMON NORMALS: PERRL, EOMs intact bilaterally and conjunctivae normal CONJUNCTIVA: Yes conjunctivae normal PUPIL: Yes PERRL Neck/C-Spine: COMMON NORMALS: full ROM GENERAL: Yes normal visual inspection and Yes trachea midline Resp: COMMON NORMALS: normal respiratory effort, no retractions, no use of accessory muscles and clear to auscultation bilaterally EFFORT & INSPECTION: Yes able to speak in complete sentences, Yes symmetric chest movement and No tachypneic AUSCULTATION: clear to auscultation bilaterally Cardio: COMMON NORMALS: regular rate, regular rhythm, S1 normal heart sound, S2 normal heart sound and no murmurs RATE: regular rate RHYTHM: regular rhythm HEART SOUNDS: S1 normal and S2 normal GI: COMMON NORMALS: normal to inspection, nondistended, normoactive bowel sounds, soft to palpation and non-tender PALPATION: Yes soft Extremity: COMMON NORMALS: normal to inspection, full ROM and no clubbing, cyanosis or edema; negative for no pedal edema Neuro: COMMON NORMALS: moves all extremities, no focal motor deficits and no sensory deficits noted SENSORIUM/ORIENTATION: Yes alert and Yes oriented to place GAIT: Yes ataxic Psych: COMMON NORMALS: mental status grossly normal, thought process normal, cooperative, affect normal and speech normal SPEECH: Yes normal speech THOUGHT PROCESS: normal thought process Skin: COMMON NORMALS: no rashes or lesions noted, no jaundice, no petechiae and no mottling GENERAL SKIN EXAM: no rashes or lesions noted Data : 08/23/19 04:30 08/23/19 04:30 A&P Assessment and plan (1) Alcohol withdrawal: -Long history of chronic alcohol abuse; EtOH of 138 on admission -Very high risk for withdrawal, currently delirious; has prior hx of DTs, withdrawal seizures -Continue scheduled Librium, CIWA protocol -Continue multivitamins, thiamine, folic acid daily -tolerating oral intake without difficulty; d/c IVF hydration -Fall/aspiration/seizure precautions -continues to protect his airway, no need for supplemental oxygen; continue to close monitoring of respiratory status -VSS; continue to monitor Status: Acute Qualifiers: Complication of substance-induced condition: with delirium Qualified Code(s): F10.231 - Alcohol dependence with withdrawal delirium Code(s): F10.239 - Alcohol dependence with withdrawal, unspecified (2) Rhabdomyolysis: -Secondary to fall and likely alcohol withdrawal -CPK decreased to 300s range -d/c IVF; encourage oral hydration -renal function wnl -continued fall risk, strict fall precautions Status: Acute Qualifiers: Rhabdomyolysis type: traumatic Encounter type: initial encounter Qualified Code(s): T79.6XXA - Traumatic ischemia of muscle, initial encounter Code(s): M62.82 - Rhabdomyolysis Additional A&P Information -HTN -Depression, anxiety -Hyperlipidemia -BPH -continue meds as ordered -cardiac diet as tolerated -DVT ppx with SCDs, no AC for now given continued high fall risk -Dispo: home -Code status: FULL code -continue ICU care due to need for close monitoring and high risk for continued alcohol withdrawal Attestations Medical Necessity Statement*: Patient requires hospitalization for continued management of acute alcohol withdrawal, continues to require one-on-one monitoring, continued CIWA protocol. Time Spent in Patient Care: Greater than 35 minutes (>than 50% of time spent in counselling and/or direct pt care on unit). Coding Level of Care Code Acute Manufacturing Chief Engineer for Soni Hilliard Diagnoses Alcohol withdrawal F10.231 Complication of substance-induced condition: with delirium Rhabdomyolysis T79.6XXA Rhabdomyolysis type: traumatic Encounter type: initial encounter
[2019-08-24] MEDS: amlodipine 10 mg Tablet PO (10:03)
[2019-08-24] MEDS: metoprolol tartrate 25 mg Tablet PO ×2 (10:04→17:46)
[2019-08-24] MEDS: multivitamin therapeutic Tablet 1 TAB PO (10:04)
[2019-08-24] MEDS: folic acid 1 mg Tablet PO (10:04)
[2019-08-24] MEDS: thiamine 100 mg Tablet PO (10:05)
[2019-08-24] MEDS: venlafaxine 75 mg Tablet PO (10:05)
[2019-08-24] MEDS: nicotine 21 mg Patch 1 PATCH TRANSDERMA (10:46)
--- NOTE | 2019-08-24 11:04 | PC.NURSE ---
ambulated around unit x2 this am. restless. wants to go outside to smoke. nicotine patch ordered.
[2019-08-24] MEDS: TRAMadol 50 mg Tablet PO ×2 (11:54→17:50)
[2019-08-24] MEDS: gabapentin 300 mg Capsule PO (11:54)
[2019-08-24] MEDS: ondansetron 4 MG Tablet PO (12:41)
--- NOTE | 2019-08-24 14:44 | PC.NURSE ---
resting quietly at this time.
--- NOTE | 2019-08-24 16:05 | PC.CHAP ---
Pastoral Care Encounter/Spiritual Assessment Type of Contact [] Declined slubber runner visit [] Patient/Family/Request visit [] Outpatient visit [] Follow-up visit [] Physician referral [] Code/Alert [] Routine visit [] Staff referral [] Actively dying [] Patient sleeping [] Family support [] [] Out of room [] Palliative care [] [x] Receiving care in room [] Pre-surgical visit [] Trauma [] Long length of stay [] ICU visit [x] Other: Follow up needed Relational/Emotional Strength [] Patient feels connected with others/family/visitors/staff [] Distress [] Loneliness/isolation [] Abandonment Spirituality of Patient [] Person of Sepideh [] Attends Baptism of their Sepideh [] Believes in Prayer [] Reads Bible or Roman Catholic materials [] There are Spiritual issues to be addressed Rotating Equipment Engineer Interventions [] Prayer [] Active listening [] Non-anxious presence [] Spiritual/emotional support [] Crisis/trauma care [] Spiritual counseling [] Bereavement support [] Provided bereavement packet [] Provided Bible/devotional materials [] Provided toy/stuffed animal, coloring book to patient or family member [] Provided Communion [] Anointing/[place] [] Salvation [] Completed spiritual assessment [] Other: Impact on Illness or Injury [] Angry [] Fearful [] Anxious [] Often cries [] Exhaustion [] Unable to work [] Unable to attend sikh [] Unable to walk/stand [] Unable to read [] Unable to drive [] Unable to eat/drink [] Unable to sleep [] Unable to be with family [] Patient intubated [] Other: Summary Pt very busy with medical staff who were conducting multiple tests in room. No slubber runner visit was conducted. Follow up needed Time spent with patient 2 minutes.
[2019-08-24] MEDS: phosphorus 250 mg Tablet PO (17:46)
[2019-08-25] VITALS (12 sets, daily range): BP systolic 116–146; BP diastolic 73–99; PULSE 84–104; RESP 18–32; TEMP 36.9–43.3; O2SAT 88–96
[2019-08-25] MEDS: chlordiazePOXIDE 25 mg Capsule 50 MG PO ×2 (03:16→09:45)
[2019-08-25 05:14] LABS: Phosphorus 4.1 mg/dL (2.5-4.5)
[2019-08-25] MEDS: gabapentin 300 mg Capsule 600 MG PO (08:09)
[2019-08-25] MEDS: LORazepam 2 mg Tablet PO (08:13)
[2019-08-25] MEDS: multivitamin therapeutic Tablet 1 TAB PO (09:45)
[2019-08-25] MEDS: phosphorus 250 mg Tablet PO (09:45)
[2019-08-25] MEDS: folic acid 1 mg Tablet PO (09:45)
[2019-08-25] MEDS: thiamine 100 mg Tablet PO (09:45)
[2019-08-25] MEDS: metoprolol tartrate 25 mg Tablet PO (09:45)
[2019-08-25] MEDS: venlafaxine 75 mg Tablet PO (09:45)
[2019-08-25] MEDS: amlodipine 10 mg Tablet PO (09:45)
[2019-08-25] MEDS: nicotine 21 mg Patch 1 PATCH TRANSDERMA (09:45)
--- NOTE | 2019-08-25 10:11 | P.PN_ITS ---
Subjective Subjective: Interval history: Patient seen and examined earlier in the day, seems quite drowsy so we will discontinue Librium. Seen later in the afternoon, much more awake, alert and oriented. Discontinue one-on-one. We will go ahead and discharge home. Medications: Reviewed: Yes Medication Review Details: Current Medications Generic Name Dose Route Start Last Admin Trade Name Freq PRN Reason Stop Dose Admin Amlodipine Besylat e 10 mg 08/23/19 09:00 08/25/19 09:45 Norvasc PO 10 mg DAILY DEION Administration Folic Acid 1 mg 08/23/19 09:00 08/25/19 09:45 Folic Acid PO 1 mg DAILY DEION Administration Gabapentin 300 mg 08/23/19 12:00 08/24/19 11:54 Neurontin PO 300 mg DAILY@1200 DEION Administration Gabapentin 600 mg 08/23/19 21:00 08/25/19 08:09 Neurontin PO 600 mg BID@, DEION Administration Lorazepam 2 mg 08/23/19 01:53 08/23/19 04:30 Ativan IM 2 mg PROTOCOL PRN Administration ALCOWD Protocol Lorazepam 2 mg 08/23/19 01:53 08/25/19 08:13 Ativan PO 2 mg PROTOCOL PRN Administration WITHDRAWAL Protocol Metoprolol Tartrat e 25 mg 08/23/19 01:53 08/25/19 09:45 Lopressor PO 25 mg BID DEION Administration Multivitamins Ther apeutic 1 tab 08/23/19 09:00 08/25/19 09:45 Multivitamin Tab PO 1 tab DAILY DEION Administration Nicotine 1 patch 08/24/19 10:00 08/25/19 09:45 Nicoderm 21 Mg P atch TRANSDERMA 1 patch DAILY DEION Administration Ondansetron HCl 4 mg 08/23/19 01:53 08/24/19 12:41 Zofran PO 4 mg Q8H PRN Administration NAUSEA AND VOMITI NG Potassium Phosphat e 250 mg 08/24/19 18:00 08/25/19 09:45 Phospha 250 Neut ral PO 250 mg BID DEION Administration Thiamine Mononitra te 100 mg 08/23/19 09:00 08/25/19 09:45 Vitamin B-1 PO 100 mg DAILY DEION Administration Tramadol HCl 50 mg 08/23/19 01:53 08/24/19 17:50 Ultram PO 50 mg TID PRN Administration back pain Venlafaxine HCl 75 mg 08/23/19 09:00 08/25/19 09:45 Effexor PO 75 mg DAILY DEION Administration Vitals/I&O/Wt Last Vital Signs Temp 98.4 F 08/25/19 06:00 Pulse 88 08/25/19 07:59 Resp 27 H 08/25/19 06:00 BP 135/85 08/25/19 06:00 Pulse Ox 94 08/25/19 07:59 08/24/19 08/25/19 08/25/19 22:59 06:59 14:59 Intake Total 760 / 1720 1080 / 2800 240 / 240 Output Total 1000 / 1000 400 / 1400 Balance -240 / 720 680 / 1400 240 / 240 Physical Exam Const: COMMON NORMALS: no apparent distress and alert GENERAL APPEARANCE: cooperative and comfortable ORIENTATION/CONSCIOUSNESS: Yes awake and Yes or iented to place HENMT: COMMON NORMALS: normocephalic, head/scalp atraumatic, hearing grossly normal bilaterally and moist oral mucous membranes HEAD & SCALP: normocephalic and atraumatic Eye: COMMON NORMALS: PERRL, EOMs intact bilaterally and conjunctivae normal CONJUNCTIVA: Yes conjunctivae normal PUPIL: Yes PERRL Neck/C-Spine: COMMON NORMALS: full ROM GENERAL: Yes normal visual inspection and Yes trachea midline Resp: COMMON NORMALS: normal respiratory effort, no retractions, no use of accessory muscles and clear to auscultation bilaterally EFFORT & INSPECTION: Yes able to speak in complete sentences, Yes symmetric chest movement and No tachypneic AUSCULTATION: clear to auscultation bilaterally Cardio: COMMON NORMALS: regular rate, regular rhythm, S1 normal heart sound, S2 normal heart sound and no murmurs RATE: regular rate RHYTHM: regular rhythm HEART SOUNDS: S1 normal and S2 normal GI: COMMON NORMALS: normal to inspection, nondistended, normoactive bowel sounds, soft to palpation and non-tender PALPATION: Yes soft Extremity: COMMON NORMALS: normal to inspection, full ROM and no clubbing, cyanosis or edema; negative for no pedal edema Neuro: COMMON NORMALS: moves all extremities, no focal motor deficits and no sensory deficits noted SENSORIUM/ORIENTATION: Yes alert and Yes oriented to place GAIT: Yes ataxic Psych: COMMON NORMALS: mental status grossly normal, thought process normal, cooperative and affect normal SPEECH: Yes other (Speech is somewhat difficult to understand though this is his baseline) THOUGHT PROCESS: normal thought process Skin: COMMON NORMALS: no rashes or lesions noted, no jaundice, no petechiae and no mottling GENERAL SKIN EXAM: no rashes or lesions noted Data : 08/23/19 04:30 08/23/19 04:30 Micro: Microbiology 08/22/19 20:08 Group A Streptococcus Rapid Screen - Final Throat A&P Assessment and plan (1) Alcohol withdrawal: -Long history of chronic alcohol abuse; EtOH of 138 on admission -Very high risk for withdrawal, currently delirious; has prior hx of DTs, withdrawal seizures -Continue scheduled Librium, CIWA protocol; will discontinue Librium due to noted somnolence this morning -Continue multivitamins, thiamine, folic acid daily -tolerating oral intake without difficulty; d/c IVF hydration -Fall/aspiration/seizure precautions -continues to protect his airway, no need for supplemental oxygen; continue to close monitoring of respiratory status -VSS; continue to monitor Status: Acute Qualifiers: Complication of substance-induced condition: with delirium Qualified Code(s): F10.231 - Alcohol dependence with withdrawal delirium Code(s): F10.239 - Alcohol dependence with withdrawal, unspecified (2) Rhabdomyolysis: -Secondary to fall and likely alcohol withdrawal -CPK decreased to 300s range -d/c IVF; encourage oral hydration -renal function wnl -continued fall risk, strict fall precautions Status: Acute Qualifiers: Encounter type: initial encounter Rhabdomyolysis type: traumatic Quali fied Code(s): T79.6XXA - Traumatic ischemia of muscle, initial encounter Code(s): M62.82 - Rhabdomyolysis Additional A&P Information -HTN -Depression, anxiety -Hyperlipidemia -BPH -continue meds as ordered -cardiac diet as tolerated -DVT ppx with SCDs, no AC for now given continued high fall risk -Dispo: home -Code status: FULL code Attestations Medical Necessity Statement*: Discharge home this afternoon Time Spent in Patient Care: Greater than 35 minutes (>than 50% of time spent in counselling and/or direct pt care on unit) . Coding Level of Care Code Acute Fishing Game Warden for [facility] Fwd Exam Problem Focused Diagnoses Alcohol withdrawal F10.231 Complication of substance-induced condition: with delirium Rhabdomyolysis T79.6XXA Encounter type: initial encounter Rhabdomyolysis type: traumatic
[2019-08-25] MEDS: gabapentin 300 mg Capsule PO (12:36)
[2019-08-25] MEDS: TRAMadol 50 mg Tablet PO (14:09)
--- NOTE | 2019-08-25 15:31 | P.DS_ITS ---
Discharge Providers Date of Admission: 08/23/19 11:28 Date of Discharge: Date of Discharge: August 25, 2019 Attending Provider at Admission: Merritt Buckner MD Attending Provider at Discharge: Marta Lee MD Primary Care Provider: Randal Peralta MD Diagnoses at Discharge Discharge Diagnosis (1) Alcohol withdrawal: Status: Acute Problem details: -Long history of chronic alcohol abuse; EtOH of 138 on admission -Very high risk for withdrawal, currently delirious; has prior hx of DTs, withdrawal seizures -Continue scheduled Librium, CIWA protocol; will discontinue Librium due to noted somnolence this morning -Continue multivitamins, thiamine, folic acid daily -tolerating oral intake without difficulty; d/c IVF hydration -Fall/aspiration/seizure precautions -continues to protect his airway, no need for supplemental oxygen; continue to close monitoring of respiratory status -VSS; continue to monitor Qualifiers: Complication of substance-induced condition: with delirium Qualified Code(s): F10.231 - Alcohol dependence with withdrawal delirium (2) Rhabdomyolysis: Status: Acute Problem details: -Secondary to fall and likely alcohol withdrawal -CPK decreased to 300s range -d/c IVF; encourage oral hydration -renal function wnl -continued fall risk, strict fall precautions Qualifiers: Rhabdomyolysis type: traumatic Encounter type: initial encounter Qualified Code(s): T79.6XXA - Traumatic ischemia of muscle, initial encounter Other Information Additional DC diagnoses/information: -HTN -Depression, anxiety -Hyperlipidemia -BPH Reason for Visit Reason for Visit: Reason For Visit: DTS Hospital Course Hospital Course: Patient was admitted to the ICU due to high risk for acute alcohol withdrawal. He was started on moderate dose of scheduled Librium as well as CIWA protocol. He required one-on-one monitoring due to significant fall risk. He was also found to have rhabdomyolysis and was on IV fluid hydration. CPK has since trended down to the 300s. He was somewhat somnolent earlier this morning so have discontinued Librium and his mentation has since cleared. He has been hemodynamically stable, afebrile, tolerating oral intake without difficulty. His speech is somewhat difficult to understand with this seems to be his baseline. Patient did not have any evidence of delirium tremens during his hospital stay. Discharge Summary: -Patient to follow-up with his primary care physician within 1 week -Counseled on need for alcohol cessation -Patient advised to seek medical attention immediately should his symptoms worsen or recur. Physical Exam Const: COMMON NORMALS: no apparent distress and alert GENERAL APPEARANCE: cooperative and comfortable ORIENTATION/CONSCIOUSNESS: Yes awake and Yes oriented to place HENMT: COMMON NORMALS: normocephalic, head/scalp atraumatic, hearing grossly normal bilaterally and moist oral mucous membranes HEAD & SCALP: normocephalic and atraumatic Eye: COMMON NORMALS: PERRL, EOMs intact bilaterally and conjunctivae normal CONJUNCTIVA: Yes conjunctivae normal PUPIL: Yes PERRL Neck/C-Spine: COMMON NORMALS: full ROM GENERAL: Yes normal visual inspection and Yes trachea midline Resp: COMMON NORMALS: normal respiratory effort, no retractions, no use of accessory muscles and clear to auscultation bilaterally EFFORT & INSPECTION: Yes able to speak in complete sentences, Yes symmetric chest movement and No tac hypneic AUSCULTATION: clear to auscultation bilaterally Cardio: COMMON NORMALS: regular rate, regular rhythm, S1 normal heart sound, S2 normal heart sound and no murmurs RATE: regular rate RHYTHM: regular rhythm HEART SOUNDS: S1 normal and S2 normal GI: COMMON NORMALS: normal to inspection, nondistended, normoactive bowel sounds, soft to palpation and non-tender PALPATION: Yes soft Extremity: COMMON NORMALS: normal to inspection, full ROM and no clubbing, cyanosis or edema; negative for no pedal edema Neuro: COMMON NORMALS: moves all extremities, no focal motor deficits and no sensory deficits noted SENSORIUM/ORIENTATION: Yes alert and Yes oriented to place GAIT: Yes ataxic Psych: COMMON NORMALS: mental status grossly normal, thought process normal, cooperative and affect normal SPEECH: Yes other (Speech is somewhat difficult to understand though this is his baseline) THOUGHT PROCESS: normal thought process Skin: COMMON NORMALS: no rashes or lesions noted, no jaundice, no petechiae and no mottling GENERAL SKIN EXAM: no rashes or lesions noted Discharge Data Data Completed and Pending: Completed Studies During Hospitalization Category Date Time Status XR chest 1V magalys ble 40923 Stat Exams 08/22/19 21:48 Completed US liver 78599 Ur gent Ultrasound 08/23/19 01:53 Completed Pending at discharge Category Date Time Status Drug Screen, Urin e Stat Lab 08/22/19 21:48 Uncollected Urinalysis and Mi croscopic Stat Lab 08/22/19 21:48 Uncollected Labs from last 24 hours 08/25/19 04:08 Phosphorus 4.1 D Vitals: Last Vital Signs Temp 98.7 F 08/25/19 12:00 Pulse 91 08/25/19 14:00 Resp 18 08/25/19 14:00 BP 117/83 08/25/19 14:00 Pulse Ox 96 08/25/19 14:00 Discharge Plan Discharge Patient Disposition: Home, Self-Care Condition: Stable Prescriptions: New venlafaxine 75 mg Tablet 75 mg PO DAILY 30 Days Qty: 30 RF: 0 amlodipine 10 mg Tablet 10 mg PO DAILY 30 Days Qty: 30 RF: 0 gabapentin 300 mg Capsule 300 mg PO DAILY@1200 30 Days Qty: 30 RF: 0 gabapentin 300 mg Capsule 600 mg PO BID@06,21 30 Days Qty: 120 RF: 0 metoprolol tartrate 25 mg Tablet 25 mg PO BID 30 Days Qty: 60 RF: 0 Vitamin B-1 (mononitrate) 100 mg Tablet 100 mg PO DAILY 30 Days Qty: 30 RF: 0 Thera 400 mcg Tablet 1 tab PO DAILY 30 Days Qty: 30 RF: 0 No Action No Known Home Medications RF: 0 Discharge Orders: Discharge Order (Routine); Ordered 08/25/19 Ordered By: Marta Lee Referrals: Randal Peralta MD [Primary Care Provider] - 4-7 days Discharge Diet: Regular Discharge Activity: Resume usual activity Discharge Attestations Time Spent in Discharge Care*: greater than 30 min Specific Discharge Activities: Specific discharge activities: educating patient, documenting/other paperwork and evaluating patient/reviewing data Status at Discharge: Cognitive status at discharge: cognitively intact , Behavioral status at discharge: cooperative , Functional status at discharge: independent ambulation Overall status at discharge: patient is back to baseline Quality Metrics Clinical Quality Measures During this hospital stay, did patient experience: None Coding Level of Care Code Acute [employer] Diagnoses Alcohol withdrawal F10.231 Complication of substance-induced condition: with delirium Rhabdomyolysis T79.6XXA Rhabdomyolysis type: traumatic Encounter type: initial encounter
--- NOTE | 2019-08-25 15:31 | PC.NURSE ---
1500 pt insistent that he is ready to get out of here. Pt oriented. Refusing to leave cardiac monitors on. States he is tired of being tied up. Rn educated on the importance of monitoring V/S. Pt still insisting he does not want to wear the monitors. RN let Dr. Lee know.
--- NOTE | 2019-08-25 18:11 | PC.NURSE ---
Pt discharged at 1800 to [facility] for transport home. Pt ambulatory and oriented. Refused further vital sign assessment .Pt prescriptions called into [facility] in [place] per pt request. Had attempted to call pt and Step father for a ride home. No one was able to come pick him up so [employer] services were enlisted. Pt discharge education provided. No further needs at this time.
== END 2019-08-25 18:00 | disposition home or self-care (01) | DRG 897 ==
LOC: ER 23:46 → ICU 23:47
PROVIDERS: Emergency Medicine; Admitting Provider Family Medicine; Emergency Provider Emergency Medicine; Family Provider Family Medicine; PCP Family Medicine; Visit Provider Family Medicine
DX: F10.231 Alcohol dependence with withdrawal delirium (principal); M62.82 Rhabdomyolysis; I10 Essential (primary) hypertension; Y90.6 Blood alcohol level of 120-199 mg/100 ml; F32.9 Major depressive disorder, single episode, unspecified; F41.9 Anxiety disorder, unspecified; E78.5 Hyperlipidemia, unspecified; N40.0 Benign prostatic hyperplasia without lower urinary tract symptoms; F17.210 Nicotine dependence, cigarettes, uncomplicated; E87.6 Hypokalemia; E83.42 Hypomagnesemia; E86.0 Dehydration
CPT/HCPCS: 12345; 36415; 36600; 71045; 76705; 80053; 80307; 82009; 82140; 82550; 82803; 82977; 83735; 84100; 84484; 85025; 85610; 87081; 87880; 93005; 96375; 97110; 97116; 97161; 99283; G0378; J2060; J2405; J3411; J3475; J3490; J7030; Q0162

== ENCOUNTER 2019-08-31 14:34 | Emergency (ER) | payer MEDICARE, MEDICAID, SELFPAY ==
[2019-08-31 14:35] VITALS: BMI 28.7
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
[2019-08-31 14:40] VITALS: BP 148/88; PULSE 102; RESP 38; TEMP 36.8; O2SAT 89
--- NOTE | 2019-08-31 14:41 | CT_ITS ---
WS: [id number] CT HEAD NONCONTRAST HISTORY: found down TECHNIQUE: Contiguous axial imaging performed through the brain in 2.5 mm imaging. Bone and soft tiss ue windows. Sagittal and coronal reformats reviewed. All CT scans at [facility] use at le ast one of these dose optimization techniques: automated exposure control; mA and/or kV adjustment pe r patient size (includes targeted exams where dose is matched to clinical indication); or iterative r econstruction. DLP: 819.12 mGy.cm COMPARISON: 02/20/2019 Large acute LEFT subdural hemorrhage. Hemorrhage is slightly lobulated with variable density. Subdura l measures 1.8 cm at its maximum towards the RIGHT parietal vertex. There are also acute blood produc ts along the LEFT paramedian interhemispheric falx. Small amount of subarachnoid blood in the posteri or LEFT occipital lobe. Smaller subdural hematoma over the RIGHT frontal lobe. Subdural blood layerin g along the tentorium. Intraparenchymal hemorrhage centered in the RIGHT temporoparietal region. Lobu lated hemorrhage measures 2.1 x 1.6 cm with a large amount of surrounding edema. There is 3 mm of midline shift to the RIGHT. Near complete effacement of the LEFT lateral ventricle. Paranasal sinuses: Mucoperiosteal thickening throughout the paranasal sinuses. Mastoid air cells: Well pneumatized. Calvarium and scalp: Skull is intact with no soft tissue edema or swelling. Notified Viridiana Stark MD at 08/31/2019 4:[address]/CT head wo con* [id number] IMPRESSION: 1. Bilateral subdural hemorrhages. Largest subdural collection is lobulated wi th variable density over the LEFT parietal lobe. May be undergoing some acute b leeding. Maximum diameter of 1.8 cm. 2. Intraparenchymal hemorrhage with a large amount of surrounding edema in th e RIGHT temporal occipital region. Small amount of subarachnoid blood LEFT occi pital region. 3. 3 mm midline shift to the RIGHT. 4. Slitlike LEFT lateral ventricle.
--- NOTE | 2019-08-31 14:41 | XR_ITS ---
WS: [id number] PORTABLE CHEST HISTORY: found down, COMPARISON: 08/22/2019 Slight elevation of the RIGHT hemidiaphragm. New mild interstitial edema. No pneumonia. No pleural ef fusion or pneumothorax. Cardiac size: Mildly enlarged cardiac silhouette. Mediastinum/Aorta: Ectatic mildly calcified thoracic aorta. No mediastinal widening. No osseous abnormality seen. XR/XR chest 1V portable [id number] IMPRESSION: 1. New mild interstitial edema. 2. Mild cardiomegaly and ectatic thoracic aorta.
--- NOTE | 2019-08-31 14:41 | CT_ITS ---
WS: [id number] CT CHEST, ABDOMEN AND PELVIS NONCONTRAST HISTORY: found down, signs of trauma TECHNIQUE: Contiguous 5 mm axial imaging performed through the chest, abdomen and pelvis without IV c ontrast, oral contrast has not been provided. Coronal and sagittal reformats chest. Coronal and sagit lyssa reformats through the abdomen and pelvis. All CT scans at [facility] use at least one of these dose optimization techniques: automated exposure control; mA and/or kV adjustment per patie nt size (includes targeted exams where dose is matched to clinical indication); or iterative reconstr uction. CONTRAST: None DLP: 2342.17 mGy.cm COMPARISON: 02/20/[address]: No pneumothorax or pulmonary contusion. Changes of emphysema and pulmonary fibrosis. No pne umonia. No significant pericardial or pleural effusion. Atherosclerosis aorta is mild. Fluid distendi ng the esophagus. Moderate size hiatal hernia. Prior rib fractures in the posterior LEFT chest wall. No adenopathy. Abdomen CT: Diffuse hepatic steatosis and decreased attenuation. Pancreas and adrenal glands and sple en are negative. Mild perinephric stranding around each kidney. Cortical scar and volume loss upper p ole RIGHT kidney. Simple cyst exophytic lower pole LEFT kidney measures 5.0 cm. Aorta is intact. No f ree fluid or adenopathy. Pelvic CT: No GI tract obstruction. No free fluid or adenopathy. Urinary bladder and prostate gland a re negative. Marked increase in thoracic kyphosis. No acute fractures. CT/CT chest abd pel wo con IMPRESSION: 1. No acute abnormality within the chest, abdomen or pelvis related to recent trauma. 2. Fluid-filled esophagus. Patient at risk for aspiration. 3. Severe emphysema and fibrotic changes. 4. Severe hepatic steatosis.
--- NOTE | 2019-08-31 14:41 | CT_ITS ---
WS: [id number] CT CERVICAL SPINE HISTORY: found down, signs of trauma TECHNIQUE: Contiguous 2.5 mm axial imaging performed through the entire cervical spine. Sagittal and coronal reformats also performed. All CT scans at [facility] use at least one of these do se optimization techniques: automated exposure control; mA and/or kV adjustment per patient size (inc ludes targeted exams where dose is matched to clinical indication); or iterative reconstruction. DLP: 707.53 mGy.cm COMPARISON: 02/20/2019 Normal cervical alignment. No fractures. Craniocervical junction and the lateral masses of C1 and C2 are normal. The odontoid is intact. Small osteophytes and disc space narrowing at C5-6. Osteophytes causing mild encroachment upon the ce ntral canal and foramen. There is at least mild central with moderate bilateral foraminal stenosis. L jesus apices are clear with changes of centrilobular emphysema. Patient has known intracranial blood. CT/CT cervical spin wo con* [id number] IMPRESSION: 1. No acute cervical spine fracture. 2. Mild central and moderate bilateral foraminal stenosis at C5-6.
--- NOTE | 2019-08-31 14:43 | ECG_ITS ---
Measurements Intervals [place] Rate: 100 P: 20 NM: 140 QRS: -21 QRSD: 101 T: 11 QT: 361 QTc: 467 SINUS TACHYCARDIA BORDERLINE LEFT AXIS DEVIATION [QRS AXIS < -20] ABNORMAL RHYTHM ECG INTERPRETATION BASED ON A DEFAULT AGE OF 40 YEARS Compared to ECG 08/23/2019 05:57:24 Sinus rhythm no longer present Electronically Signed On 08-31-2019 20:48:14 FELTING MACHINE OPERATOR HELPER by Juana Mcneill M.D. [email or web address]
[2019-08-31 14:48] LABS: Glucose Point of Care 77 mg/dL (70-110)
[2019-08-31 15:03] LABS: ABG PCO2 36.2 mmHg (35-45); ABG PH Result 7.41 (7.35-7.45); Arterial Blood Gas Hematocrit 39.8 % (42-52); Base Excess ABG -1.5 mmol/L (-2.0-2.0); Blood Gas Allen Test Pos; Blood Gas Sample Site Radial, right; Blood Gas Sample Type Arterial; HCO3 ABG 22.8 mmol/L (22-26); Oxygen Device NC; PO2 ABG 68.5 mmHg (80.0-100.0)
[2019-08-31 15:37] LABS: Basophils % 0.3 %; Eosinophils % 0.4 %; Hematocrit 42.4 % (42.0-52.0); Hemoglobin 13.3 g/dL (11.7-16.6); Lymphocytes # 1.1 10^3/uL (0.8-4.8); Lymphocytes % 11.1 %; Mean Corpuscular HGB Conc 31.4 g/dL (30.0-36.0); Mean Corpuscular Hemoglobin 29.2 pg (28.0-34.0); Monocytes # 1.1 10^3/uL (0.2-0.9); Monocytes % 10.7 %; Neutrophils # 7.8 10^3/uL (1.8-7.7); Neutrophils % 76.6 %; Nucleated Red Blood Cells % 0 %; Platelet Count 174 10^3/cmm (130-400); Red Blood Count 4.56 10^6/uL (4.1-5.3); Red Cell Distribution Width 16.5 % (12.1-15.1); White Blood Count 10.1 10^3/uL (4.0-10.0)
[2019-08-31 15:51] LABS: INR 1.07 (0.8-1.2)
[2019-08-31 15:56] LABS: Lactate (Lactic Acid level) 3.6 mmol/L (0.5-2.2)
[2019-08-31 16:02] LABS: Alanine Aminotransferase 37 U/L (0-41); Albumin Level 3.9 g/dL (3.5-5.2); Alcohol Level 243 mg/dL (0-10); Alkaline Phosphatase 72 IU/L (40-130); Anion Gap 23.3 (5-19); Aspartate Amino Transferase 54 U/L (0-40); Blood Urea Nitrogen 16 mg/dL (8-23); Calcium 8.7 mg/dL (8.5-10.5); Carbon Dioxide 21 mmol/L (22-29); Chloride 100 mmol/L (98-107); Globulin 2.3 g/dL (1.3-4.6); Glomerular Filtration Rate 74.3 mL/min (90-130); Glucose 83 mg/dL (65-115); Potassium 3.3 mmol/L (3.5-5.1); Sodium 141 mmol/L (136-145); Total Bilirubin 0.8 mg/dL (0.15-1.2); Total Protein 6.2 g/dL (6.6-8.7)
[2019-08-31 16:10] LABS: Troponin(5th) Baseline 12 ng/mL (0-15)
[2019-08-31 16:25] LABS: Creatine Phosphokinase 654 U/L (39-308)
[2019-08-31] MEDS: sodium chloride 0.9% 1,000 ML 999 ML IV (16:28)
--- NOTE | 2019-08-31 16:43 | ECG_ITS ---
Measurements Intervals [place] Rate: 93 P: 50 NJ: 163 QRS: 6 QRSD: 97 T: 37 QT: 370 QTc: 462 SINUS RHYTHM Compared to ECG 08/23/2019 05:57:24 No significant changes Electronically Signed On 08-31-2019 20:52:09 SOFTWARE QUALITY ASSURANCE ENGINEER by Juana Mcneill M.D. [id number]
[2019-08-31 16:50] LABS: Glucose Urine UA Norm (Normal); Protein Urine Trace (Negative); Urine Appearance Clear (CLEAR); Urine Color Dark Yellow (Yellow); pH Urine 5 (5-7)
[2019-08-31 16:51] LABS: Add Urine Culture? No; Add Urine Microscopic? YES; Amorphous Sediment Urine 1+; Bacteria Urine TRACE; Bilirubin Urine Neg (NEGATIVE); Blood Urine 2+ (Negative); Ketones Urine 1+ (Negative); Leukocyte Esterase Urine Negative (Negative); Mucus Urine 2+; Nitrate Urine Negative (Negative); Squamous Epithelial Cell Urine RARE (0-5); Urobilinogen Urine 1 mg/dL (Negative); WBC Urine 0-4 /hpf (0-5)
[2019-08-31 17:06] LABS: Amphetamines Screen Urine Negative (Negative); Barbiturates Screen Urine Negative (Negative); Benzodiazepines Screen Urine Positive (Negative); Cocaine Screen Urine Negative (Negative); Opiate Screen Urine Negative (Negative); PCP Screen Urine Negative (Negative); THC Screen Urine Negative (Negative)
[2019-08-31 17:20] VITALS: BP 148/89; PULSE 91; RESP 16; O2SAT 95
== END 2019-08-31 17:26 ==
LOC: ER 14:48
PROVIDERS: Emergency Provider Emergency Medicine; Family Provider Family Medicine; PCP Family Medicine
DX: S06.5X0A Traumatic subdural hemorrhage without loss of consciousness, initial encounter (principal); R41.0 Disorientation, unspecified; I10 Essential (primary) hypertension; F10.10 Alcohol abuse, uncomplicated; Y90.8 Blood alcohol level of 240 mg/100 ml or more; W07.XXXA Fall from chair, initial encounter
CPT/HCPCS: 36415; 36416; 36600; 70450; 71045; 71250; 72125; 74176; 80053; 80307; 81001; 82550; 82803; 82962; 83605; 84484; 85025; 85610; 86850; 86900; 93005; 96360; 99283; 99291; J7030

== ENCOUNTER 2020-01-15 10:59 | Outpatient (CLI) | payer MEDICARE, MEDICAID, SELFPAY ==
--- NOTE | 2020-01-15 11:18 | XRR_ITS ---
PROCEDURE INFORMATION: Exam: XR Left Elbow Exam date and time: 01/15/2020 11:35 AM Age: 69 years old Clinical indication: Pain; Elbow; Left; Additional info: Elbow pain TECHNIQUE: Imaging protocol: XR Left elbow. Views: 3 or more views. COMPARISON: No relevant prior studies available. FINDINGS: Bones/joints: Radial head and proximal ulna are without fracture. No joint effusion. Degenerative changes within the olecranon. Soft tissues: Medial and lateral columns are without fracture. Soft tissue swelling in the region of the olecranon bursa. Correlate with MRI versus ultrasound regarding possible bursitis. XR/XR elbow LT min 3V* [id number] IMPRESSION: 1. No acute process. 2. Degenerative changes within the olecranon. 3. Soft tissue swelling in the region of the olecranon bursa. Correlate with MRI versus ultrasound regarding possible bursitis.
== END 2020-01-15 11:00 | disposition home or self-care (01) ==
LOC: RAD 11:05
PROVIDERS: PCP Family Medicine; Visit Provider Family Medicine
DX: M25.522 Pain in left elbow (principal); R60.9 Edema, unspecified
CPT/HCPCS: 73080

== ENCOUNTER 2020-01-31 15:22 | Outpatient (CLI) | payer MEDICARE, MEDICAID, SELFPAY ==
--- NOTE | 2020-01-31 15:29 | CT_ITS ---
WS: [id number] CT scan of the chest without IV contrast, additional two-dimensional coronal and sagittal reconstruct ion was performed. 01/31/2020 Clinical Data: CHRONIC OBSTRUCTIVE PULMONARY DISEASE Comparison: CT chest abdomen and pelvis, 08/31/2019. DLP: 853.[address] scans at [facility] use at least one of these dose optimization techniques: automat ed exposure control; mA and/or kV adjustment per patient size (includes targeted exams where dose is matched to clinical indication); or iterative reconstruction. Findings: No nodules, masses or effusions are seen. There are bullous changes in the left upper lobe. The heart size is normal with no pericardial effusion. There is coronary artery calcification. The trachea bif urcates normally into the bronchi. No pneumonia or pneumothorax is seen. The pulmonary arterial syste m and thoracic aorta demonstrate no abnormalities or dilatations. There is an old left posterior nint h rib fracture. There is no axillary or significant mediastinal adenopathy. There is a small hiatal h ernia. The upper abdomen shows fatty infiltration of the liver.. The bones of the thorax show no significant abnormalities. CT/CT chest wo con [id number] Impression: 1. Chronic obstructive pulmonary disease. 2. Negative for acute cardiopulmonary disease.
== END 2020-01-31 15:23 | disposition home or self-care (01) ==
LOC: RADWPI 15:25
PROVIDERS: PCP Family Medicine; Visit Provider Family Medicine
DX: J44.9 Chronic obstructive pulmonary disease, unspecified (principal)
CPT/HCPCS: 71250

== ENCOUNTER 2020-08-18 10:15 | Outpatient (CLI) | payer MEDICARE, MEDICAID, SELFPAY ==
--- NOTE | 2020-08-18 10:23 | CT_ITS ---
WS: [id number] CT CHEST TECHNIQUE: Noncontrast CT of the chest with coronal and sagittal reformatted images. CLINICAL INFORMATION: PULMONARY NODULE COMPARISON: CT 01/31/2020 and 08/31/2019 DLP: 793.[address] scans at [facility] use at least one of these dose optimization techniques: automat ed exposure control; mA and/or kV adjustment per patient size (includes targeted exams where dose is matched to clinical indication); or iterative reconstruction. FINDINGS: Mild chronic emphysematous changes. No acute pulmonary infiltrates. No focal pneumonia or pleural flu id. No acute-appearing pulmonary infiltrates. No suspicious pulmonary parenchymal opacities. Calcifie d granuloma right upper lobe. No mediastinal or hilar lymphadenopathy. Normal thyroid gland. Mild aor tic calcification. Coronary calcification. Calcified anterior mediastinal lymph nodes. No axillary lymphadenopathy. Small esophageal hiatal hernia. Adrenal glands are normal. CT/CT chest wo con [id number] IMPRESSION: 1. Mild chronic emphysematous changes. No acute pulmonary infiltrates. 2. Calcified granuloma right upper lobe. 3. No mediastinal or hilar lymphadenopathy. 4. Mild vascular calcification including coronary. 5. Small esophageal hiatal hernia.
== END 2020-08-18 10:16 | disposition home or self-care (01) ==
LOC: RADWPI 10:22
PROVIDERS: PCP Family Medicine; Visit Provider Family Medicine
DX: R91.1 Solitary pulmonary nodule (principal); K44.9 Diaphragmatic hernia without obstruction or gangrene; I25.10 Atherosclerotic heart disease of native coronary artery without angina pectoris; J84.10 Pulmonary fibrosis, unspecified
CPT/HCPCS: 71250

== ENCOUNTER 2021-12-25 10:19 | Outpatient (CLI) | payer MEDICARE, MEDICAID, SELFPAY ==
--- NOTE | 2021-12-25 10:34 | CT_ITS ---
WS: [id number] LDCT LUNG CANCER SCREENING TECHNIQUE: Noncontrast CT of the chest with coronal and sagittal reformatted images. CLINICAL INFORMATION: HX OF TOBACCO USE COMPARISON: CT chest August 18, 2020 DLP: 83.58 mGy.cm DIvol: Mean CTDIvol: 1.60 (mGy) All CT scans at [facility] use at least one of these dose optimization techniques: automat ed exposure control; mA and/or kV adjustment per patient size (includes targeted exams where dose is matched to clinical indication); or iterative reconstruction. FINDINGS: Mild chronic emphysematous changes. No acute pulmonary infiltrates. No suspicious pulmonary parenchym al opacities. Calcified granuloma right upper lobe. No mediastinal or hilar lymphadenopathy. Normal thyroid gland. Mild aortic calcification. Normal caliber thoracic aorta. Coronary calcificatio n. Calcified mediastinal lymph nodes. No axillary lymphadenopathy. Moderate esophageal hiatal hernia. Adrenal glands are normal. CT/CT lung screening [id number] IMPRESSION: LUNG-RADS: 1-Negative FOLLOW UP: 12 Month: Continue annual screening with LDCT
== END 2021-12-25 10:20 | disposition home or self-care (01) ==
LOC: RAD 10:20
PROVIDERS: PCP Family Medicine; Visit Provider Family Medicine
DX: Z12.2 Encounter for screening for malignant neoplasm of respiratory organs (principal); F17.210 Nicotine dependence, cigarettes, uncomplicated
CPT/HCPCS: 71271

== ENCOUNTER 2024-07-18 14:28 | Emergency (ER) | payer MEDICARE, MEDICAID, SELFPAY ==
[2024-07-18 14:36] VITALS: BP 138/86; PULSE 79; RESP 12; TEMP 37.1; O2SAT 92; BMI 32.8
--- NOTE | 2024-07-18 14:45 | ED_ITS ---
HPI - Alcohol 2 General: Chief Complaint: Alcohol Stated Complaint: ETOH Time Seen by Provider: 07/18/24 14:31 Source: patient and EMS Mode of arrival: EMS History of Present Illness: 73-year-old male states he been drinking heavily yesterday been drinking today as well. Family had called she is having some periods of altered mental status. Patient is unsure exactly what it happened he is answering all my question properly does know the year and knows his name states he had been drinking heavily. Caregiver they state patient had drank some last night but not a heavy amount states that he was fine this morning his last known well was 10 states that when they came back to check on him he was having confusion along with a hard time walking it also had some slurred speech Associated symptoms: Deny abdominal pain, nausea or vomiting Related Data Home Medications Medication Instructions Recorded Confirmed albuterol sulfate 90 mcg/actuation 2 puff inhalation Q4H PRN 07/18/24 07/18/24 aerosol inhaler Shortness Of Breath diclofenac sodium 50 mg 50 mg PO BID 07/18/24 07/18/24 tablet,delayed release finasteride 5 mg tablet 5 mg PO DAILY 07/18/24 07/18/24 fluticasone fur. 100 mcg-umeclid 1 inh inhalation CONT 07/18/24 07/18/24 62.5 mcg-vilant 25 mcg inhalat.powder (Trelegy Ellipta) furosemide 20 mg tablet 20 mg PO DAILY 07/18/24 07/18/24 gabapentin 600 mg tablet 600 mg PO BID 07/18/24 07/18/24 levetiracetam 500 mg tablet 500 mg PO DAILY 07/18/24 07/18/24 lisinopril 20 mg tablet 20 mg PO DAILY 07/18/24 07/18/24 omeprazole 40 mg capsule,delayed 40 mg PO QAM 07/18/24 07/18/24 release prednisone 20 mg tablet 20 mg PO DAILY 07/18/24 07/18/24 tamsulosin 0.4 mg capsule 0.4 mg PO BID 07/18/24 07/18/24 testosterone cypionate 200 mg/mL 200 mg IM Q30D 07/18/24 07/18/24 intramuscular oil trazodone 150 mg tablet 150 mg PO BEDTIME 07/18/24 07/18/24 venlafaxine 75 mg capsule,extended 75 mg PO DAILY 07/18/24 07/18/24 release 24 hr Allergies Allergy/AdvReac Type Severity Reaction Status Date / Time No Known Allergies Allergy Verified 08/31/19 14:43 Review of Systems 2 Const: Denies: fever(s), chills, body aches or change in appetite ENMT: Denies: throat pain or dental pain Card: Denies: chest pain Resp: Denies: dyspnea GI: Denies: abdominal pain, nausea, vomiting or diarrhea Musc: Denies: neck pain or back pain Skin/Breast: Denies: rash Neuro: Reports: difficulty walking and dizziness; Denies: headache(s) PFSH ED 2 PFSH: Medical History Anxiety and depression Alcohol withdrawal -Long history of chronic alcohol abuse; EtOH of 138 on admission -Very high risk for withdrawal, currently delirious; has prior hx of DTs, withdrawal seizures -Continue scheduled Librium, CIWA protocol; will discontinue Librium due to noted somnolence this morning -Continue multivitamins, thiamine, folic acid daily -tolerating oral intake without difficulty; d/c IVF hydration -Fall/aspiration/seizure precautions -continues to protect his airway, no need for supplemental oxygen; continue to close monitoring of respiratory status -VSS; continue to monitor BPH (benign prostatic hyperplasia) Hypertension GERD (gastroesophageal reflux disease) Chronic back pain Surgical History History of back surgery Social History Smoking and tobacco/nicotine status: unknown if used tobacco/nicotine Alcohol intake: current Alcohol intake frequency: 3 or more drinks per day Alcohol type: hard liquor Substance/Drug Use: never Physical Exam 2 Const: COMMON NORMALS: patient oriented x3 HENMT: COMMON NORMALS: normocephalic and atraumatic HEAD & SCALP: n ormocephalic and atraumatic Eye: COMMON NORMALS: conjunctivae normal CONJUNCTIVA: Yes conjunctivae normal Neck/C-Spine: COMMON NORMALS: full ROM and supple Chest: COMMONS NORMALS: normal inspection of the chest Resp: COMMON NORMALS: normal respiratory effort, No retractions, No use of accessory muscles and clear to auscultation bilaterally AUSCULTATION: clear to auscultation bilaterally Cardio: COMMON NORMALS: regular rate, regular rhythm and No murmurs present (Cardio) RATE: regular rate RHYTHM: regular rhythm GI: COMMON NORMALS: Normal to inspection, nondistended, normoactive bowel sounds present, Soft to palpation, non-tender and no masses PALPATION: Yes Soft to palpation Extremity: COMMON NORMALS: normal to inspection and full ROM Neuro: COMMON NORMALS: patient oriented x3, moves all extremities and no focal motor deficits CRANIAL NERVES: Yes CN normal except as noted SPEECH: a bnormal speech Details: slurred GAIT: Yes Ataxic gait present Psych: COMMON NORMALS: mental status grossly normal, Normal thought process present and cooperative THOUGHT PROCESS: Normal thought process present Skin: COMMON NORMALS: no rashes or lesions noted and no wounds GENERAL SKIN EXAM: no rashes or lesions noted Course 2 Vital Signs: Vital signs: Vital Signs Temperature 98.7 F 07/18/24 14:36 Pulse Rate 80 07/18/24 17:33 Respiratory Rate 14 07/18/24 15:37 Blood Pressure 142/93 07/18/24 15:37 Pulse Oximetry 94 07/18/24 17:33 Oxygen Delivery Me thod Room Air 07/18/24 14:36 MDM - Alcohol Medical Decision Making Patient presents here with alcohol intoxication he had a difficult time walking first arrived that is improved cirrhosis. She is likely intoxicated causing no symptoms she had a history of a brain bleed in the past he states he feels much improved he is wanting to go home he has been requesting discharge at this time I did speak to him he is to follow-up with PCP return if worsening is no signs of acute stroke here return if worsening. Medical Records I reviewed the patient's medical records. Lab Data I reviewed the patient's lab results. 07/18/24 15:06 07/18/24 15:[address] 07/18/24 14:46 IMPRESSION: 1. No acute intracranial abnormality. ASSESSMENT: ASPECTS ([place] Stroke Program Early CT Score) is 10. ADDENDUM: 07/18/24 1507 The findings were verbally communicated by telephone with Dr. SRINIVASAN at 3:05 PM ELECTRICAL DESIGN ENGINEER on 07/18/2024. Head/Neck CTA 07/18/24 14:46 IMPRESSION: 1. No evidence of acute thrombosis of the vessels of the [id number]. 2. High-grade stenosis versus short-segment occlusion of the right vertebral artery V4 segment, age-indeterminate. Consider neurologic evaluation and if warranted, catheter angiography. IMPRESSION: 1. No evidence of acute thrombosis or high-grade stenosis in the neck. 2. Moderate approximately 50% stenosis of the proximal left ICA secondary to mixed atherosclerotic plaque. 3. Emphysematous changes. The presence of pulmonary emphysema on CT is an independent risk factor for lung cancer. In the absence of a history or active diagnosis of lung cancer, it is recommended that this patient with emphysema be evaluated for enrollment in a low dose CT lung cancer screening program. REFERENCES: NASCET CRITERIA. The degree of stenosis in the cervical segment of the internal carotid artery is based on NASCET criteria. Normal is no stenosis. Mild is less than 50% stenosis. Moderate is 50-69% stenosis. Severe is 70% to 99% stenosis. Total occlusion is no detectable patent lumen. Laboratory Results WBC 6.28 10^3/uL (3.29-11.43) 07/18/24 15:06 RBC 4.51 10^6/uL (3.85-5.65) 07/18/24 15:06 Hgb 12.00 g/dL (11.27-16.99) 07/18/24 15:06 Hct 39.8 % (37-53) 07/18/24 15:06 MCV 88.2 fl (82-101) 07/18/24 15:06 MCH 26.6 pg (27-33) L 07/18/24 15:06 MCHC 30.2 g/dL (30-55) 07/18/24 15:06 RDW 19.4 % (12.1-15.1) H 07/18/24 15:06 Plt Count 309 10^3/cmm (157-399) 07/18/24 15:06 MPV 9.5 fL (7.4-10.4) 07/18/24 15:06 Neut % (Auto) 52.7 % 07/18/24 15:06 Lymph % (Auto) 35.2 % 07/18/24 15:06 Gilchrist % (Auto) 8.1 % 07/18/24 15:06 Eos % (Auto) 3.2 % 07/18/24 15:06 Baso % (Auto) 0.5 % 07/18/24 15:06 Neut # (Auto) 3.31 10^3/uL (1.8-7.7) 07/18/24 15:06 Lymph # (Auto) 2.2 10^3/uL (0.8-4.8) 07/18/24 15:06 Gilchrist # (Auto) 0.5 10^3/uL (0.2-0.9) 07/18/24 15:06 Eos # (Auto) 0.2 10^3/uL (0.0-0.8) 07/18/24 15:06 Baso # (Auto) 0.0 10^3/uL (0.0-0.1) 07/18/24 15:06 Nucleated RBC % (auto) 0 % 07/18/24 15:06 Nucleated RBCs # 0.0 /100WBC 07/18/24 15:06 Sodium 139 mmol/L (136-145) 07/18/24 15:06 Potassium 3.8 mmol/L (3.5-5.1) 07/18/24 15:06 Chloride 106 mmol/L (98-107) 07/18/24 15:06 Carbon Dioxide 19 mmol/L (22-29) L 07/18/24 15:06 Anion Gap 17.8 (5-19) 07/18/24 15:06 BUN 13 mg/dL (8-23) 07/18/24 15:06 Creatinine 1.3 mg/dL (0.7-1.2) H 07/18/24 15:06 GFR Calculation Not Reportable 07/18/24 15:06 Glucose 105 mg/dL (65-115) 07/18/24 15:06 Calculated Osmolality 288 mOsm/kg (285-295) 07/18/24 15:06 Calcium 8.0 mg/dL (8.5-10.5) L 07/18/24 15:06 Total Bilirubin 0.2 mg/dL (0.15-1.2) 07/18/24 15:06 AST 36 U/L (0-40) 07/18/24 15:06 ALT 27 U/L (0-41) 07/18/24 15:06 Alkaline Phosphatase 85 U/L (40-130) 07/18/24 15:06 Total Protein 5.9 g/dL (6.6-8.7) L 07/18/24 15:06 Albumin 3.2 g/dL (3.5-5.2) L 07/18/24 15:06 Globulin 2.7 g/dL (1.3-4.6) 07/18/24 15:06 Ethyl Alcohol 303 mg/dL (0-10) H* 07/18/24 15:06 All radiology interpretation(s) finalized by discharge EKG Data EKG 1: I personally reviewed and interpreted this EKG as follows: EKG interpretation date: 07/18/24 EKG interpretation time: 15:32 Interpretation: nsr hr [address] elevation qrs 109 qtc 451 Discharge Plan Discharge Patient Disposition: Home Clinical Impression: Alcoholic intoxication Condition: Stable Prescriptions: No Action venlafaxine 75 mg capsule,extended release 24hr 75 mg PO DAILY gabapentin 600 mg tablet 600 mg PO BID levetiracetam 500 mg tablet 500 mg PO DAILY lisinopril 20 mg tablet 20 mg PO DAILY prednisone 20 mg tablet 20 mg PO DAILY omeprazole 40 mg capsule,delayed release(DR/EC) 40 mg PO QAM tamsulosin 0.4 mg capsule 0.4 mg PO BID trazodone 150 mg tablet 150 mg PO BEDTIME diclofenac sodium 50 mg tablet,delayed release (DR/EC) 50 mg PO BID furosemide 20 mg tablet 20 mg PO DAILY testosterone cypionate 200 mg/mL oil 200 mg IM Q30D albuterol sulfate 90 mcg/actuation HFA aerosol inhaler 2 puff INHALATION Q4H PRN (Reason: Shortness Of Breath) finasteride 5 mg tablet 5 mg PO DAILY Trelegy Ellipta 100-62.5-25 mcg blister with device 1 inh INHALATION CONT Discharge Orders: Discharge ED (Routine); Ordered 07/18/24 Ordered By: Donald Srinivasan Referrals: Howard Kelly DO [Primary Care Provider] - 4-7 days Discharge Diet: Advance as tolerated Discharge Activity: Resume usual activity Patient Instructions: Alcohol Intoxication (ED) Coding Level of Care Code ED Bread Wrapper for Chg Babak NIH stroke score NIHSS Level Of Consciousness - 1a: 0 Level Of Consciousness Questions - 1b: Both Correct Level Of Consciousness Commands - 1c: Both Correct Best Gaze - 2: Normal Visual Marquez - 3: No Visual Loss Facial Palsy - 4: Normal Motor Arm Right - 5: No Drift Motor Arm Left - 5: No Drift Motor Leg Right - 6: No Drift Motor Leg Left - 6: No Drift Limb Ataxia - 7: Present In One Limb Sensory - 8: Normal Best Language - 9: No Aphasia Dysarthia - 10: Mild/Moderate Dysarthia Extinction And Inattention - 11: 0 Score Total Score: 2
--- NOTE | 2024-07-18 14:46 | ECG_ITS ---
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 Measurements Intervals [place] Rate: 68 P: 49 WI: 178 QRS: 15 QRSD: 109 T: 42 QT: 435 QTc: 463 Interpretive Statements SINUS RHYTHM Compared to ECG 08/31/2019 16:53:47 No significant changes Electronically Signed On 07-19-2024 12:28:43 PARIMUTUEL TICKET CASHIER by Joey Johnson M.D. [email or web address]
--- NOTE | 2024-07-18 14:46 | CTR_ITS ---
PROCEDURE INFORMATION: Exam: CTA Head With Contrast, Arteriography Exam date and time: 07/18/2024 2:56 PM Age: 73 years old Clinical indication: Speech disturbance; Slurred speech; Additional info: Weakness TECHNIQUE: Imaging protocol: Computed tomographic angiography of the head with contrast. Exam focused on the arteries. 3D rendering (Not supervised by radiologist): MIP and/or 3D reconstructed images were created by the technologist. Radiation optimization: All CT scans at this facility use at least one of these dose optimization techniques: automated exposure control; mA and/or kV adjustment per patient size (includes targeted exams where dose is matched to clinical indication); or iterative reconstruction. Contrast material: OMNIPAQUE 350; Contrast volume: 100 ml; Contrast route: INTRAVENOUS (IV); COMPARISON: CT head thrombolytic [id number] 07/18/2024 2:51 PM RADIATION DOSE METRICS: Total DLP (mGy-cm): 466.58 FINDINGS: ANTERIOR CIRCULATION: Right internal carotid artery: Patent. Right middle cerebral artery: Patent. Right anterior cerebral artery: Patent. Left internal carotid artery: Patent. Left middle cerebral artery: Patent. Left anterior cerebral artery: Patent. POSTERIOR CIRCULATION: Right vertebral artery: Developmentally diminutive. There is high-grade stenosis versus short segment occlusion of the V4 segment (for example, images 185-191 of series 4) Left vertebral artery: Patent. Basilar artery: Patent. Right posterior cerebral artery: Patent. Left posterior cerebral artery: Patent. PROCEDURE INFORMATION: Exam: CTA Neck With Contrast Exam date and time: 07/18/2024 2:56 PM Age: 73 years old Clinical indication: Speech disturbance; Slurred speech; Additional info: Weakness TECHNIQUE: Imaging protocol: Computed tomographic angiography of the neck with contrast. Exam focused on the cervical segments of the vasculature. 3D rendering (Not supervised by radiologist): MIP and/or 3D reconstructed images were created by the technologist. Radiation optimization: All CT scans at this facility use at least one of these dose optimization techniques: automated exposure control; mA and/or kV adjustment per patient size (includes targeted exams where dose is matched to clinical indication); or iterative reconstruction. Contrast material: OMNIPAQUE 350; Contrast volume: 100 ml; Contrast route: INTRAVENOUS (IV); COMPARISON: CT head thrombolytic [id number] 07/18/2024 2:51 PM RADIATION DOSE METRICS: Total DLP (mGy-cm): 466.58 FINDINGS: Right common carotid artery: Patent. No evidence of hemodynamically significant stenosis. Right internal carotid artery: Patent. Moderate mixed atherosclerotic plaque without evidence of hemodynamically significant stenosis. Right external carotid artery: Patent. Left common carotid artery: Patent. Noncalcified atherosclerotic plaque without evidence of hemodynamically significant stenosis. Left internal carotid artery: Patent. Mixed atherosclerotic plaque results in moderate approximately 50% narrowing of the proximal left ICA at its origin. Left external carotid artery: Patent. Right vertebral artery: Patent. Developmentally diminutive. Left vertebral artery: Patent. Dominant. Soft tissues: No gross soft tissue abnormality. No evidence of fluid collection or hematoma. Bones/joints: No evidence of acute fracture or subluxation of the cervical spine. Other: Moderate emphysematous changes. CT/CT angio headneck* [id number] IMPRESSION: 1. No evidence of acute thrombosis of the vessels of the [id number]. 2. High-grade stenosis versus short-segment occlusion of the right vertebral artery V4 segment, age-indeterminate. Consider neurologic evaluation and if warranted, catheter angiography. IMPRESSION: 1. No evidence of acute thrombosis or high-grade stenosis in the neck. 2. Moderate approximately 50% stenosis of the proximal left ICA secondary to mixed atherosclerotic plaque. 3. Emphysematous changes. The presence of pulmonary emphysema on CT is an independent risk factor for lung cancer. In the absence of a history or active diagnosis of lung cancer, it is recommended that this patient with emphysema be evaluated for enrollment in a low dose CT lung cancer screening program. REFERENCES: NASCET CRITERIA. The degree of stenosis in the cervical segment of the internal carotid artery is based on NASCET criteria. Normal is no stenosis. Mild is less than 50% stenosis. Moderate is 50-69% stenosis. Severe is 70% to 99% stenosis. Total occlusion is no detectable patent lumen.
--- NOTE | 2024-07-18 14:46 | CTR_ITS ---
PROCEDURE INFORMATION: Exam: CT Head Without Contrast Exam date and time: 07/18/2024 2:51 PM Age: 73 years old Clinical indication: Stroke-like symptoms; Altered mental status/memory loss and speech disturbance; Additional info: Weakness TECHNIQUE: Imaging protocol: Computed tomography of the head without contrast. Radiation optimization: All CT scans at this facility use at least one of these dose optimization techniques: automated exposure control; mA and/or kV adjustment per patient size (includes targeted exams where dose is matched to clinical indication); or iterative reconstruction. Other technique: STROKE PROTOCOL was implemented. COMPARISON: CT head wo con* [id number] 08/31/2019 3:56 PM RADIATION DOSE METRICS: Total DLP (mGy-cm): 1250.61 FINDINGS: Brain: No evidence of intra-axial or extra-axial hemorrhage. No mass effect or midline shift. Villavicencio-white differentiation is maintained. Basilar cisterns are patent. Cerebral ventricles: No hydrocephalus. Paranasal sinuses: The visualized paranasal sinuses are well aerated. Mastoid air cells: The visualized mastoids and middle ears are clear. Bones: Calvarium is intact. No evidence of acute fracture. Soft tissues: No gross soft tissue abnormality. CT/CT head thrombolytic [id number] IMPRESSION: 1. No acute intracranial abnormality. ASSESSMENT: ASPECTS ([place] Stroke Program Early CT Score) is 10.
[2024-07-18] MEDS: iohexol 350 mg/mL 500 mL Btl (per mL) IV (15:02)
--- NOTE | 2024-07-18 15:27 | PC.NURSE ---
this nurse assumed care of pt approx @1520, report received from Zo Mahan.
[2024-07-18 15:33] LABS: Basophils % 0.5 %; Eosinophils # 0.2 10^3/uL (0.0-0.8); Eosinophils % 3.2 %; Hematocrit 39.8 % (37-53); Lymphocytes # 2.2 10^3/uL (0.8-4.8); Lymphocytes % 35.2 %; Mean Corpuscular HGB Conc 30.2 g/dL (30-55); Mean Corpuscular Hemoglobin 26.6 pg (27-33); Mean Corpuscular Volume 88.2 fl (82-101); Mean Platelet Volume 9.5 fL (7.4-10.4); Monocytes # 0.5 10^3/uL (0.2-0.9); Monocytes % 8.1 %; Neutrophils # 3.31 10^3/uL (1.8-7.7); Neutrophils % 52.7 %; Nucleated Red Blood Cells % 0 %; Platelet Count 309 10^3/cmm (157-399); Red Blood Count 4.51 10^6/uL (3.85-5.65); Red Cell Distribution Width 19.4 % (12.1-15.1); White Blood Count 6.28 10^3/uL (3.29-11.43)
[2024-07-18 15:37] VITALS: BP 142/93; PULSE 71; RESP 14; O2SAT 93
[2024-07-18 15:40] LABS: Alanine Aminotransferase 27 U/L (0-41); Albumin Level 3.2 g/dL (3.5-5.2); Alkaline Phosphatase 85 U/L (40-130); Anion Gap 17.8 (5-19); Aspartate Amino Transferase 36 U/L (0-40); Blood Urea Nitrogen 13 mg/dL (8-23); Carbon Dioxide 19 mmol/L (22-29); Chloride 106 mmol/L (98-107); Creatinine Clr Calc Pharmacy 55.6627; Globulin 2.7 g/dL (1.3-4.6); Glucose 105 mg/dL (65-115); Osmolality Calculated 288 mOsm/kg (285-295); Potassium 3.8 mmol/L (3.5-5.1); Sodium 139 mmol/L (136-145); Total Bilirubin 0.2 mg/dL (0.15-1.2); Total Protein 5.9 g/dL (6.6-8.7)
[2024-07-18 15:49] LABS: Alcohol Level 303 mg/dL (0-10)
[2024-07-18 17:33] VITALS: PULSE 80; O2SAT 94
[2024-07-18 17:46] VITALS: BP 192/104; PULSE 83; O2SAT 98
== END 2024-07-18 17:47 | disposition home or self-care (01) ==
PROVIDERS: Emergency Provider Emergency Medicine; PCP Electrodiagnostic Medicine
DX: F10.129 Alcohol abuse with intoxication, unspecified (principal); Y90.8 Blood alcohol level of 240 mg/100 ml or more; I10 Essential (primary) hypertension
CPT/HCPCS: 36415; 70450; 70496; 70498; 80053; 80307; 85025; 93005; 93010; 96374; 99285; J3411

== ENCOUNTER 2024-08-23 17:26 | Observation (INO) | payer MEDICARE, MEDICAID, SELFPAY ==
--- NOTE | 2024-08-23 17:29 | XRR_ITS ---
PROCEDURE INFORMATION: Exam: XR Chest Exam date and time: 08/23/2024 5:48 PM Age: 73 years old Clinical indication: Cough TECHNIQUE: Imaging protocol: Radiologic exam of the chest. Views: 1 view. COMPARISON: CR XR chest 2V* [id number] 08/08/2024 10:36 AM FINDINGS: Lungs: Unremarkable. No consolidation. Pleural spaces: Unremarkable. No pleural effusion. No pneumothorax. Heart/Mediastinum: Heart is borderline enlarged, unchanged. Moderate-sized hiatal hernia redemonstrated. Vasculature: Thoracic aorta is tortuous unchanged. Bones/joints: No acute bony abnormalities detected. XR/XR chest 1V portable [id number] IMPRESSION: Stable chest. No active disease.
[2024-08-23 17:35] VITALS: BP 158/93; PULSE 104; RESP 18; TEMP 36.8; O2SAT 95; BMI 31.3
--- NOTE | 2024-08-23 17:58 | W.ED.AMS ---
HPI - Altered Mental Status General: Chief Complaint: Altered Mental Status Stated Complaint: flu like symptoms Time Seen by Provider: 08/23/24 17:48 Source: patient Mode of arrival: EMS Limitations: other (poor historian, ANALY) History of Present Illness: Patient is a 73-year-old male with past medical history of chronic EtOH abuse who was brought in by ambulance for reported altered mental status by family. Patient lives home alone, patient reported to me that his stepdaughter called the ambulance. Patient was here on 07/18 of this year, for very similar presentation was found to be intoxicated with an EtOH of 303. He was also unable to state the date and place then, he did have a normal CT and CTA and had improved after observation as his alcohol level came down. Patient reported today that he is having symptoms of fever, cough, nausea vomiting diarrhea, congestion. He states that he has had a couple of shooters today to try to help his symptoms. Again he is disoriented to place and time, similar presentation as his prior visit. When I ask him if he remembers anything for prior visit, he states yes because it was just the other day. He states that he lives at home by himself, however does have a who checks on him. Ultimately he is a poor historian, likely secondary to EtOH intoxication is very disheveled there is evidence of emesis on his chest and freedman. No family here to give any history at this time. MD complaint: altered mental status and intoxication Onset (ago): unknown Timing confirmed by: other (Unknown) Consistency of symptoms: Unknown Context: alcohol abuse Related Data Home Medications ?Medication ?Instructions ?Recorded ?Confirmed albuterol sulfate 90 mcg/actuation 2 puff inhalation Q4H PRN 07/18/24 07/18/24 aerosol inhaler Shortness Of Breath diclofenac sodium 50 mg 50 mg PO BID 07/18/24 07/18/24 tablet,delayed release finasteride 5 mg tablet 5 mg PO DAILY 07/18/24 07/18/24 fluticasone fur. 100 mcg-umeclid 1 inh inhalation CONT 07/18/24 07/18/24 62.5 mcg-vilant 25 mcg inhalat.powder (Trelegy Ellipta) furosemide 20 mg tablet 20 mg PO DAILY 07/18/24 07/18/24 gabapentin 600 mg tablet 600 mg PO BID 07/18/24 07/18/24 levetiracetam 500 mg tablet 500 mg PO DAILY 07/18/24 07/18/24 lisinopril 20 mg tablet 20 mg PO DAILY 07/18/24 07/18/24 omeprazole 40 mg capsule,delayed 40 mg PO QAM 07/18/24 07/18/24 release prednisone 20 mg tablet 20 mg PO DAILY 07/18/24 07/18/24 tamsulosin 0.4 mg capsule 0.4 mg PO BID 07/18/24 07/18/24 testosterone cypionate 200 mg/mL 200 mg IM Q30D 07/18/24 07/18/24 intramuscular oil trazodone 150 mg tablet 150 mg PO BEDTIME 07/18/24 07/18/24 venlafaxine 75 mg capsule,extended 75 mg PO DAILY 07/18/24 07/18/24 release 24 hr Previous Rx's ?Medication ?Instructions ?Recorded ondansetron HCl 4 mg tablet 4 mg PO Q8H #30 tabs 08/23/24 oseltamivir 75 mg capsule (Tamiflu) 75 mg PO BID 5 days #10 caps 08/23/24 Allergies Allergy/AdvReac Type Severity Reaction Status Date / Time No Known Allergies Allergy Verified 08/31/19 14:43 Review of Systems General: Reports: Other (unobtainable due to EtOH/AMS) [facility] ED PFSH: Medical History Anxiety and depression Alcohol withdrawal -Long history of chronic alcohol abuse; EtOH of 138 on admission -Very high risk for withdrawal, currently delirious; has prior hx of DTs, withdrawal seizures -Continue scheduled Librium, CIWA protocol; will discontinue Librium due to noted somnolence this morning -Continue multivitamins, thiamine, folic acid daily -tolerating oral intake without difficulty; d/c IVF hydration -Fall/aspiration/seizure precautions -continues to protect his airway, no need for supplemental oxygen; continue to close monitoring of respiratory status -VSS; continue to monitor BPH (benign prostatic hyperplasia) Hypertension GERD (gastroesophageal reflux disease) Chronic back pain Surgical History History of back surgery Social History Smoking and tobacco/nicotine status: unknown if used tobacco/nicotine Alcohol intake: current Alcohol intake frequency: 3 or more drinks per day Alcohol type: hard liquor Substance/Drug Use: never Physical Exam Const: OTHER: No evidence of dried emesis on his freedman, disheveled. Oriented to self only. Disoriented to place and time. HENMT: COMMON NORMALS: normocephalic, atraumatic, moist oral mucous membranes and oropharynx normal HEAD & SCALP: normocephalic and atraumatic OTHER: No facial asymmetry Eye: OTHER: Constricted pupils, equally reactive and responsive to light. Conjunctiva normal. Neck/C-Spine: COMMON NORMALS: full ROM and no meningeal signs Chest: OTHER: Evidence of dried emesis/mucus on his chest Resp: COMMON NORMALS: normal respiratory effort, No retractions, No use of accessory muscles and clear to auscultation bilaterally AUSCULTATION: clear to auscultation bilaterally Cardio: COMMON NORMALS: regular rate, regular rhythm, No gallops present (Cardio), No murmurs present (Cardio) and No rub (Cardio) RATE: regular rate RHYTHM: regular rhythm GI: COMMON NORMALS: Normal to inspection, nondistended, normoactive bowel sounds present, Soft to palpation and non-tender PALPATION: Yes Soft to palpation Extremity: COMMON NORMALS: normal to inspection and full ROM Neuro: COMMON NORMALS: moves all extremities, no focal motor deficits and no sensory deficits noted MENINGEAL SIGNS: Yes no meningeal signs SPEECH: Other neuro speech findings (Garbled speech) GAIT: Yes Unable to assess gait MOTOR EXAM: 5/5 motor strength present throughout, Pronator motor function not present, no asterixis and Motor abnormalities not present Skin: COMMON NORMALS: no rashes or lesions noted GENERAL SKIN EXAM: no rashes or lesions noted Course Vital Signs: Vital signs: Vital Signs Temperature 98.3 F 08/23/24 17:35 Pulse Rate 105 H 08/23/24 20:47 Respiratory Rate 20 H 08/23/24 20:47 Blood Pressure 155/89 08/23/24 20:47 Pulse Oximetry 92 08/23/24 20:47 Oxygen Delivery Me thod Room Air 08/23/24 20:47 MDM - Altered Mental Status Medical Decision Making Patient presented by ambulance for altered mental status. This was similar presentation to back in July where he was acutely intoxicated. Initially on examination was disoriented to place and time, though seemed to become more oriented throughout ED stay. His EtOH today was 52, he was flu a positive. The rest of his labs were essentially unremarkable. Stable chest x-ray. He had normal CT and CTA with prior visit. However towards the end of the ED stay he became acutely disoriented/delirious, he became incontinent of stool and repeatedly kept trying to get out of bed and notably was falling. His blood pressure had elevated to 212/127 and he is not tachycardic. He is given hydralazine through an IV as well as Ativan, likely this is alcoholic withdrawal with delirium. I spoke with hospitalist, Dr. Sterling, who accepts the patient for observation. Dr. Tineo put in admit orders at this time. Lab Data 08/23/24 18:12 08/23/24 18:12 Radiology Impressions Chest X-Ray 08/23/24 17:29 IMPRESSION: Stable chest. No active disease. Laboratory Results WBC 7.93 10^3/uL (3.29-11.43) 08/23/24 18:12 RBC 4.61 10^6/uL (3.85-5.65) 08/23/24 18:12 Hgb 12.50 g/dL (11.27-16.99) 08/23/24 18:12 Hct 40.2 % (37-53) 08/23/24 18:12 MCV 87.2 fl (82-101) 08/23/24 18:12 MCH 27.1 pg (27-33) 08/23/24 18:12 MCHC 31.1 g/dL (30-55) 08/23/24 18:12 RDW 19.4 % (12.1-15.1) H 08/23/24 18:12 Plt Count 225 10^3/cmm (157-399) 08/23/24 18:12 MPV 9.8 fL (7.4-10.4) 08/23/24 18:12 Neut % (Auto) 81.8 % 08/23/24 18:12 Lymph % (Auto) 6.7 % 08/23/24 18:12 Routt % (Auto) 10.8 % 08/23/24 18:12 Eos % (Auto) 0.0 % 08/23/24 18:12 Baso % (Auto) 0.3 % 08/23/24 18:12 Neut # (Auto) 6.49 10^3/uL (1.8-7.7) 08/23/24 18:12 Lymph # (Auto) 0.5 10^3/uL (0.8-4.8) L 08/23/24 18:12 Routt # (Auto) 0.9 10^3/uL (0.2-0.9) 08/23/24 18:12 Eos # (Auto) 0.0 10^3/uL (0.0-0.8) 08/23/24 18:12 Baso # (Auto) 0.0 10^3/uL (0.0-0.1) 08/23/24 18:12 Nucleated RBC % (auto) 0 % 08/23/24 18:12 Nucleated RBCs # 0.0 /100WBC 08/23/24 18:12 Sodium 137 mmol/L (136-145) 08/23/24 18:12 Potassium 3.4 mmol/L (3.5-5.1) L 08/23/24 18:12 Chloride 101 mmol/L (98-107) 08/23/24 18:12 Carbon Dioxide 21 mmol/L (22-29) L 08/23/24 18:12 Anion Gap 18.4 (5-19) 08/23/24 18:12 BUN 11 mg/dL (8-23) 08/23/24 18:12 Creatinine 1.0 mg/dL (0.7-1.2) 08/23/24 18:12 GFR Calculation Not Reportable 08/23/24 18:12 Glucose 104 mg/dL (65-115) 08/23/24 18:12 Calculated Osmolality 284 mOsm/kg (285-295) L 08/23/24 18:12 Calcium 8.5 mg/dL (8.5-10.5) 08/23/24 18:12 Total Bilirubin 0.6 mg/dL (0.15-1.2) 08/23/24 18:12 AST 71 U/L (0-40) H 08/23/24 18:12 ALT 32 U/L (0-41) 08/23/24 18:12 Alkaline Phosphatase 91 U/L (40-130) 08/23/24 18:12 Total Protein 7.3 g/dL (6.6-8.7) 08/23/24 18:12 Albumin 3.7 g/dL (3.5-5.2) 08/23/24 18:12 Globulin 3.6 g/dL (1.3-4.6) 08/23/24 18:12 Ethyl Alcohol 52 mg/dL (0-10) H 08/23/24 18:12 Coronavirus (PCR) Negative (Negative) 08/23/24 18:22 Influenza A (PCR) Positive (Negative) 08/23/24 18:22 Influenza Type B (PCR) Negative (Negative) 08/23/24 18:22 RSV (PCR) Negative (Negative) 08/23/24 18:22 All radiology interpretation(s) finalized by discharge Discharge Plan Discharge Patient Disposition: Placed in Observation Admit Provider: Juana Sterling Clinical Impression: Influenza A Altered mental status Qualifiers: Altered mental status type: delirium Qualified Code(s): R41.0 - Disorientation, unspecified Alcohol withdrawal Qualifiers: Complication of substance-induced condition: with delirium Qualified Code(s): F10.931 - Alcohol use, unspecified with withdrawal delirium Coding Level of Care Code ED Certified Medical Records Coder for Soni Hilliard
[2024-08-23 18:06] VITALS: BP 184/91; PULSE 83; RESP 16; O2SAT 95
[2024-08-23 18:26] LABS: Basophils % 0.3 %; Hematocrit 40.2 % (37-53); Lymphocytes # 0.5 10^3/uL (0.8-4.8); Lymphocytes % 6.7 %; Mean Corpuscular HGB Conc 31.1 g/dL (30-55); Mean Corpuscular Hemoglobin 27.1 pg (27-33); Mean Corpuscular Volume 87.2 fl (82-101); Mean Platelet Volume 9.8 fL (7.4-10.4); Monocytes # 0.9 10^3/uL (0.2-0.9); Monocytes % 10.8 %; Neutrophils # 6.49 10^3/uL (1.8-7.7); Neutrophils % 81.8 %; Nucleated Red Blood Cells % 0 %; Platelet Count 225 10^3/cmm (157-399); Red Blood Count 4.61 10^6/uL (3.85-5.65); Red Cell Distribution Width 19.4 % (12.1-15.1); White Blood Count 7.93 10^3/uL (3.29-11.43)
[2024-08-23 18:43] LABS: Alanine Aminotransferase 32 U/L (0-41); Albumin Level 3.7 g/dL (3.5-5.2); Alcohol Level 52 mg/dL (0-10); Alkaline Phosphatase 91 U/L (40-130); Anion Gap 18.4 (5-19); Aspartate Amino Transferase 71 U/L (0-40); Blood Urea Nitrogen 11 mg/dL (8-23); Calcium 8.5 mg/dL (8.5-10.5); Carbon Dioxide 21 mmol/L (22-29); Chloride 101 mmol/L (98-107); Creatinine Clr Calc Pharmacy 70.6731; Globulin 3.6 g/dL (1.3-4.6); Glucose 104 mg/dL (65-115); Osmolality Calculated 284 mOsm/kg (285-295); Potassium 3.4 mmol/L (3.5-5.1); Sodium 137 mmol/L (136-145); Total Bilirubin 0.6 mg/dL (0.15-1.2); Total Protein 7.3 g/dL (6.6-8.7)
[2024-08-23 19:11] LABS: Influenza A POSITIVE (Negative); Influenza B NEGATIVE (Negative); Respiratory Syncytial Virus Ce NEGATIVE (Negative); SARS-CoV-2 PCR NEGATIVE (Negative)
[2024-08-23 19:30] VITALS: BP 195/106; PULSE 94; RESP 20; O2SAT 93
[2024-08-23] MEDS: oseltamivir phosphate 75 mg Capsule PO (19:36)
[2024-08-23] MEDS: ondansetron 4 MG Tablet 8 MG PO (19:36)
[2024-08-23] MEDS: hyDRALAzine 20 mg/mL INJ 1 mL 10 MG IVP (19:49)
[2024-08-23] MEDS: LORazepam 2 mg/mL INJ 1 mL IVP ×2 (19:50→23:10)
[2024-08-23 19:51] VITALS: BP 212/127; PULSE 118; RESP 16; O2SAT 94
--- NOTE | 2024-08-23 20:31 | PM.HP ---
Providers/Chief Complaint Primary Care Provider: Howard Kelly DO Chief Complaint: flu like symptoms History of Present Illness Julio Mccann is a 73 year old male with history of alcohol abuse, hypertension, BPH, history of alcohol withdrawal, DTs presented to the hospital with chief complaint of generalized weakness, fatigue and confusion. Patient is able to tell his name, date of , he is oriented to time place and person but short attention span. He is showing signs of alcohol withdrawal received phenobarbital high-dose secondary to hypertension tachycardia anxiety and confusion. Initially he was not requiring oxygen however after a few hours he was put on nonrebreather mask for hypoxia. Patient is stating that he had a drink before he came to the hospital, smokes 1 pack a day, he is intoxicated with alcohol level around 52, lives alone, patient was brought in by ambulance when stepdaughter called 911. CT head, CTA head and neck unremarkable no signs of stroke, patient is stating that he has had diarrhea with abdominal discomfort for past few days, as per the nursing staff patient was covered in feces. He has been experiencing emesis as well. CT abdomen pelvis consistent with colitis. Respiratory panel positive for flu A Review of Systems Const: Reports: chills Eyes: Denies: change in vision ENMT: Denies: throat pain Card: Reports: palpitations Resp: Reports: dyspnea GI: Reports: abdominal pain, nausea and vomiting Medications/Allergies Home Medications ?Medication ?Instructions ?Recorded ?Confirmed ?Last Taken ?Type albuterol sulfate 90 mcg/actuation 2 puff inhalation Q4H PRN 07/18/24 07/18/24 Unknown History aerosol inhaler Shortness Of Breath diclofenac sodium 50 mg 50 mg PO BID 07/18/24 07/18/24 07/18/24 History tablet,delayed release finasteride 5 mg tablet 5 mg PO DAILY 07/18/24 07/18/24 07/18/24 History fluticasone fur. 100 mcg-umeclid 1 inh inhalation CONT 07/18/24 07/18/24 07/18/24 History 62.5 mcg-vilant 25 mcg inhalat.powder (Trelegy Ellipta) furosemide 20 mg tablet 20 mg PO DAILY 07/18/24 07/18/24 07/18/24 History gabapentin 600 mg tablet 600 mg PO BID 07/18/24 07/18/24 07/18/24 History levetiracetam 500 mg tablet 500 mg PO DAILY 07/18/24 07/18/24 07/18/24 History lisinopril 20 mg tablet 20 mg PO DAILY 07/18/24 07/18/24 07/18/24 History omeprazole 40 mg capsule,delayed 40 mg PO QAM 07/18/24 07/18/24 07/18/24 History release prednisone 20 mg tablet 20 mg PO DAILY 07/18/24 07/18/24 Unknown History tamsulosin 0.4 mg capsule 0.4 mg PO BID 07/18/24 07/18/24 07/18/24 History testosterone cypionate 200 mg/mL 200 mg IM Q30D 07/18/24 07/18/24 Unknown History intramuscular oil trazodone 150 mg tablet 150 mg PO BEDTIME 07/18/24 07/18/24 07/17/24 History venlafaxine 75 mg capsule,extended 75 mg PO DAILY 07/18/24 07/18/24 07/18/24 History release 24 hr ondansetron HCl 4 mg tablet 4 mg PO Q8H #30 tabs 08/23/24 Unknown Rx oseltamivir 75 mg capsule (Tamiflu) 75 mg PO BID 5 days #10 caps 08/23/24 Unknown Rx Allergies Allergy/AdvReac Type Severity Reaction Status Date / Time No Known Allergies Allergy Verified 08/31/19 14:43 PFSH Acute PFSH: Medical History Anxiety and depression Alcohol withdrawal -Long history of chronic alcohol abuse; EtOH of 138 on admission -Very high risk for withdrawal, currently delirious; has prior hx of DTs, withdrawal seizures -Continue scheduled Librium, CIWA protocol; will discontinue Librium due to noted somnolence this morning -Continue multivitamins, thiamine, folic acid daily -tolerating oral intake without difficulty; d/c IVF hydration -Fall/aspiration/seizure precautions -continues to protect his airway, no need for supplemental oxygen; continue to close monitoring of respiratory status -VSS; continue to monitor BPH (benign prostatic hyperplasia) Hypertension GERD (gastroesophageal reflux disease) Chronic back pain Surgical History History of back surgery Social History Smoking and tobacco/nicotine status: unknown if used tobacco/nicotine Alcohol intake: current Alcohol intake frequency: 3 or more drinks per day Alcohol type: hard liquor Substance/Drug Use: never Vitals/I&O/Wt Last Vital Signs Temp 98.3 F 08/23/24 17:35 Pulse 118 H 08/23/24 19:51 Resp 16 08/23/24 19:51 BP 212/127 08/23/24 19:51 Pulse Ox 94 08/23/24 19:51 O2 Del Method Room Air 08/23/24 19:51 08/23/24 08/23/24 08/23/24 06:59 14:59 22:59 Intake Total 0 / 0 Balance 0 / 0 Weight last 48 hrs Weight 90.718 kg Physical Exam Narrative: Patient is AOx3 No active focal deficit GCS 15 Able to answer simple questions Short attention span CIWA score around 8 Awake and alert Tachycardic Hypertensive 155/89 mmHg No signs of meningitis Dehydrated Abdomen soft no significant tenderness on palpation Mild rhonchi Currently on nonrebreather mask 5 L Data 08/23/24 18:12 08/23/24 18:12 A&P Assessment and plan (1) Alcohol withdrawal: Qualifiers: Complication of substance-induced condition: with delirium Qualified Code(s): F10.931 - Alcohol use, unspecified with withdrawal delirium (2) Influenza A: (3) Altered mental status: Qualifiers: Altered mental status type: delirium Qualified Code(s): R41.0 - Disorientation, unspecified (4) Delirium: (5) Intoxication: (6) Dehydration: (7) Hypoxia: Plan Acute delirium Multifactorial, intoxication, influenza A, dehydration, Start IV fluid hydration Check B12, TSH, Could be related to Wernicke's encephalopathy No signs of meningitis or stroke Alcohol intoxication Alcohol level 52 Start CIWA protocol Patient received phenobarbital 260 mg IV x 1 in the ER Continue Keppra as patient carries history of DTs Acute hypoxia Currently on 5 L nasal cannula I have asked nurse to switch to nonrebreather mask Check deep dimer Likely underlying undiagnosed COPD with active flu Active smoker Dehydration related to nausea vomiting and diarrhea Stomach distention noted as well, gastroenteritis? CT abdomen pelvis consistent with colitis Clear liquid diet Continue IV fluids Zofran Start Zosyn Full code Clear liquid diet GI prophylaxis: Protonix DVT prophylaxis heparin Continue folic acid along thiamine PDMP PDMP Reviewed: Not Reviewed Attestations Medical Necessity Statement*: More than 2 midnights anticipated Diagnoses Alcohol withdrawal F10.931 Complication of substance-induced condition: with delirium Influenza A J10.1 Altered mental status R41.0 Altered mental status type: delirium Delirium R41.0 Intoxication Dehydration E86.0 Hypoxia R09.02
[2024-08-23 20:47] VITALS: BP 155/89; PULSE 105; RESP 20; O2SAT 92
--- NOTE | 2024-08-23 20:49 | PC.NURSE ---
ATTEMPTED TO CALL REPORT AT [id number]
[2024-08-23] MEDS: PHENobarbital 130 mg/mL SDV 1 mL 260 MG IVP (21:26)
[2024-08-23 21:59] LABS: D Dimer 1.36 ug/mLFEU (0-0.59)
[2024-08-23 22:00] VITALS: BP 172/97; PULSE 112; RESP 54; TEMP 37.5; O2SAT 99
[2024-08-23] MEDS: sodium chloride 0.9% 1,000 ML 75 ML IV (22:28)
[2024-08-23] MEDS: heparin 5,000 unit/mL INJ 1 mL 5000 UNIT SUBCUT (22:29)
[2024-08-23] MEDS: thiamine 100 mg/mL 2mL SDV IM (22:29)
[2024-08-23] MEDS: ondansetron 2 mg/ML SDV 2 mL 4 MG IVP (23:10)
[2024-08-23] MEDS: acetaminophen 500 mg Tablet PO (23:11)
[2024-08-24] VITALS (7 sets, daily range): BP systolic 175–193; BP diastolic 88–96; PULSE 87–101; RESP 22–50; TEMP 36.7–38.7; O2SAT 91–96
[2024-08-24 03:05] LABS: ABG PCO2 37.8 mmHg (35-45); ABG PH Result 7.42 (7.35-7.45); Alveolar-Arterial Oxygen Gradi 3.8 mmHg (5-10); Arterial Blood Gas Hematocrit 38.8 % (42-52); Blood Gas Allen Test Pos; Blood Gas Operator Identificat BUSJA; Blood Gas Sample Site Radial, left; Blood Gas Sample Type Arterial; Carboxyhemoglobin 1.1 %THgb (0.4-20.1); HCO3 ABG 24.3 mmol/L (22-26); HGB O2 Sat 93.2 % (95-100); Ionized Calcium Level - ABG 1.1 mmol/L (1.1-1.4); Methemoglobin 0.9 % (0.4-1.5); Oxygen Device NC; Oxygen Saturation ABG 95.1; PO2 ABG 74.1 mmHg (80.0-100.0); Potassium Level - ABG 3.5 mmol/L (3.5-5.0); Total Hemoglobin 12.7 g/dL (14-18)
[2024-08-24 03:14] LABS: Lipase 38 U/L (13-60)
[2024-08-24 05:47] LABS: Basophils % 0.2 %; Hematocrit 42.9 % (37-53); Lymphocytes # 1.1 10^3/uL (0.8-4.8); Lymphocytes % 13.4 %; Mean Corpuscular HGB Conc 29.8 g/dL (30-55); Mean Corpuscular Hemoglobin 26.5 pg (27-33); Mean Corpuscular Volume 88.8 fl (82-101); Mean Platelet Volume 9.7 fL (7.4-10.4); Monocytes # 0.8 10^3/uL (0.2-0.9); Monocytes % 9.9 %; Neutrophils # 6.44 10^3/uL (1.8-7.7); Neutrophils % 76.1 %; Nucleated Red Blood Cells % 0 %; Platelet Count 161 10^3/cmm (157-399); Red Blood Count 4.83 10^6/uL (3.85-5.65); Red Cell Distribution Width 19.7 % (12.1-15.1); White Blood Count 8.46 10^3/uL (3.29-11.43)
[2024-08-24 06:07] LABS: Alanine Aminotransferase 30 U/L (0-41); Albumin Level 3.3 g/dL (3.5-5.2); Alkaline Phosphatase 85 U/L (40-130); Anion Gap 15.9 (5-19); Aspartate Amino Transferase 69 U/L (0-40); Blood Urea Nitrogen 16 mg/dL (8-23); Calcium 8.3 mg/dL (8.5-10.5); Carbon Dioxide 23 mmol/L (22-29); Chloride 100 mmol/L (98-107); Globulin 3.6 g/dL (1.3-4.6); Glucose 92 mg/dL (65-115); Magnesium 1.4 mg/dL (1.7-2.3); Osmolality Calculated 281 mOsm/kg (285-295); Potassium 3.9 mmol/L (3.5-5.1); Sodium 135 mmol/L (136-145); Total Bilirubin 0.8 mg/dL (0.15-1.2); Total Protein 6.9 g/dL (6.6-8.7)
--- NOTE | 2024-08-24 06:33 | PC.NURSE ---
pt has had 9 bowel movements this shift, foul odor, yellow in collor, and liquid consistency, straight cath x1 with 600 ml return
[2024-08-24] MEDS: heparin 5,000 unit/mL INJ 1 mL 5000 UNIT SUBCUT (08:24)
[2024-08-24] MEDS: folic acid 1 mg Tablet PO (08:24)
[2024-08-24] MEDS: pantoprazole 40 mg SDV IVP (08:24)
[2024-08-24] MEDS: multivitamin therapeutic Tablet 1 TAB PO (08:25)
[2024-08-24] MEDS: levETIRAcetam 500 mg Tablet PO (08:25)
[2024-08-24] MEDS: thiamine 100 mg Tablet PO (08:25)
--- NOTE | 2024-08-24 08:33 | USCV_ITS ---
Julio Mccann Age: 73 Gender: M : 1950 Exam Date: 08/24/2024 10:06 Ordering Phys: Ja Burns MD Technologist: Hoang Wynn Exam Location: [facility] [place] Indication: chf BP: 193 / 96 HR: 89 Rhythm: Sinus Technical Quality: Adequate MEASUREMENTS (Male / Female) Normal Values 2D ECHO LVOT Diameter 2.0 cm LV Ejection Fraction MOD 4C 74.3 % LV Ejection Fraction MOD 2C 72.5 % LV Ejection Fraction 2C AL 72.8 % LA Diameter 4.0 cm RA Systolic Volume 4C AL 28.5 ml RA Systolic Volume 4C MOD 29.8 ml LA Sys Volume AL 39.5 cm cubed LA Sys Volume Index AL 19.1 cm cubed/m squared Aorta at Sinotubular Diameter 2.8 cm M-MODE LA Ao Ratio MM 1.0 AV Cusp Separation MM 1.4 cm DOPPLER AV Peak Velocity 133.0 cm/s LVOT Peak Velocity 121.0 cm/s AV Area Cont Eq vti 2.9 cm squared AV Area Cont Eq pk 3.0 cm squared MV Peak Velocity 147.0 cm/s MV Area PHT 4.7 cm squared Mitral E to A Ratio 0.7 TV Peak Velocity 148.0 cm/s TR Peak Velocity 150.0 cm/s TR Peak Gradient 9.0 mmHg TR Mean Velocity 117.0 cm/s TR Mean Gradient 5.9 mmHg TR Velocity Time Integral 41.1 cm PV Peak Velocity 125.0 cm/s RV Ejection Time 0.2 s FINDINGS Left Ventricle Normal left ventricular size, systolic function and wall thickness, with no regional wall motion abnormalities. Left ventricular ejection fraction is estimated at 60 %. Grade I/IV diastolic dysfunction (abnormal relaxation filling pattern), normal to mildly elevated filling pressures. Right Ventricle The right ventricle is normal in size and function. Right Atrium The right atrium is normal in size. Left Atrium Mildly increased left atrial size. Mitral Valve Severely thickened mitral valve. Severe mitral annular calcification. No mitral valve stenosis. Trace mitral valve regurgitation. Aortic Valve Structurally normal aortic valve without significant sclerosis or stenosis. There is no aortic regurgitation. Tricuspid Valve Structurally normal tricuspid valve without significant stenosis or regurgitation. Pulmonary artery systolic pressure is normal. Pulmonic Valve Structurally normal pulmonic valve without significant stenosis. There is no pulmonic regurgitation. Pericardium Normal pericardium without effusion. Aorta Normal ascending aorta dimension. IVC Inferior vena cava not visualized. CONCLUSIONS Normal left ventricular size, systolic function and wall thickness, with no regional wall motion abnormalities. Left ventricular ejection fraction is estimated at 60 %. Grade I/IV diastolic dysfunction (abnormal relaxation filling pattern), normal to mildly elevated filling pressures. Severely thickened mitral valve. Severe mitral annular calcification. No mitral valve stenosis. Trace mitral valve regurgitation. There is no pericardial effusion. Juana Mcneill MD (Electronically Signed) Final Date: 25 August 2024 19:57 S
[2024-08-24 08:59] LABS: Estmated Average Glucose 108; Hemoglobin A1C 5.4 % (4.0-6.0)
[2024-08-24] MEDS: folic acid 1 MG, multivitamin inj 10 ML, thiamine 100 MG in sodium chloride 0.9% 1,000 ML 252.8 MG IV (09:01)
[2024-08-24] MEDS: acetaminophen 500 mg Tablet PO (09:01)
[2024-08-24 09:17] LABS: Procalcitonin 0.32 ng/mL (0-0.5); Thyroid Stimulating Hormone 1.74 uIU/mL (0.27-4.20); Vitamin B12 612 pg/mL (232-1245)
[2024-08-24] MEDS: ipratropium 0.5 mg/2.5 mL Neb INHALATION (09:26)
[2024-08-24] MEDS: budesonide 0.5 mg/2 mL Neb INHALATION (09:26)
[2024-08-24 09:28] LABS: Iron 68 ug/dL (59-158); Total Iron Binding Capacity 308 mcg/dl; Unsaturated Iron Binding 240 ug/dL (112-347)
--- NOTE | 2024-08-24 11:52 | P.DS_ITS ---
Discharge Providers Date of Admission: 08/23/24 20:35 Date of Discharge: August 24, 2024 Attending Provider at Admission: Juana Sterling MD Attending Provider at Discharge: Ja Burns MD Primary Care Provider: Howard Kelly DO Diagnoses at Discharge Discharge Diagnosis (1) Alcohol withdrawal: Status: Acute Qualifiers: Complication of substance-induced condition: with delirium Qualified Code(s): F10.931 - Alcohol use, unspecified with withdrawal delirium (2) Influenza A: Status: Acute (3) Altered mental status: Status: Acute Qualifiers: Altered mental status type: delirium Qualified Code(s): R41.0 - Disorientation, unspecified (4) Delirium: Status: Acute (5) Intoxication: Status: Acute (6) Dehydration: Status: Acute (7) Hypoxia: Status: Acute Reason for Visit Reason for Visit: flu like symptoms Brief History: As per HPI: Julio Mccann is a 73 year old male with history of alcohol abuse, hypertension, BPH, history of alcohol withdrawal, DTs presented to the hospital with chief complaint of generalized weakness, fatigue and confusion. Patient is able to tell his name, date of , he is oriented to time place and person but short attention span. He is showing signs of alcohol withdrawal received phenobarbital high-dose secondary to hypertension tachycardia anxiety and confusion. Initially he was not requiring oxygen however after a few hours he was put on nonrebreather mask for hypoxia. Patient is stating that he had a drink before he came to the hospital, smokes 1 pack a day, he is intoxicated with alcohol level around 52, lives alone, patient was brought in by ambulance when stepdaughter called 911. CT head, CTA head and neck unremarkable no signs of stroke, patient is stating that he has had diarrhea with abdominal discomfort for past few days, as per the nursing staff patient was covered in feces. He has been experiencing emesis as well. CT abdomen pelvis consistent with colitis. Respiratory panel positive for flu A Hospital Course Hospital Course Patient was admitted to the hospital further evaluation and management of started on treatment for colitis, possible aspiration pneumonia, flu symptoms in setting of alcohol intoxication. On admission he was found to be dehydrated and was started on IV fluids. Patient responded to the treatment and mentation improved. On waking up patient demanded of being discharged. Discussed noted with the patient that he still has concern for hypoxia, pneumonia and would benefit from further hospitalization for treatment while cultures are awaited with IV antibiotics, nebulization and steroids. Discussed the risks of worsening hypoxia and even if goes home early. Patient was advised and counseled in detail by multiple people including myself, nursing staff. Patient was adamant on being discharged and left AGAINST MEDICAL ADVICE Physical Exam Narrative: General: No acute distress, AO x3, nasal cannula HEENT: PERRLA, pupils bilaterally equal and reactive Chest: Bilateral bronchial breath sounds all lung hodges, conductive airway sounds CVS: S1-S2 regular, no murmurs, no tachycardia, no gallops, no rubs Abdomen: Soft, nontender, no organomegaly, bowel sounds present Neuro: No focal deficits, no facial deformity, AO x3, power 5/5 in all limbs Discharge Data Studies Completed and Pending Completed Studies During Hospitalization Category Date Time Status XR chest 1V portable [id number] Stat Exams 08/23/24 17:29 Completed Pending at discharge Category Date Time Status Bacterial Antigen Stat Lab 08/24/24 08:33 Ordered Urinalysis Routine Lab 08/24/24 08:33 Ordered CV. echo complete* [id number] Routine Ultrasound 08/24/24 08:33 Taken Radiology Impressions Chest X-Ray 08/23/24 17:29 IMPRESSION: Stable chest. No active disease. Laboratory Results WBC 8.46 10^3/uL (3.29-11.43) 08/24/24 05:33 RBC 4.83 10^6/uL (3.85-5.65) 08/24/24 05:33 Hgb 12.80 g/dL (11.27-16.99) 08/24/24 05:33 Hct 42.9 % (37-53) 08/24/24 05:33 MCV 88.8 fl (82-101) 08/24/24 05:33 MCH 26.5 pg (27-33) L 08/24/24 05:33 MCHC 29.8 g/dL (30-55) L 08/24/24 05:33 RDW 19.7 % (12.1-15.1) H 08/24/24 05:33 Plt Count 161 10^3/cmm (157-399) 08/24/24 05:33 MPV 9.7 fL (7.4-10.4) 08/24/24 05:33 Neut % (Auto) 76.1 % 08/24/24 05:33 Lymph % (Auto) 13.4 % 08/24/24 05:33 Motley % (Auto) 9.9 % 08/24/24 05:33 Eos % (Auto) 0.0 % 08/24/24 05:33 Baso % (Auto) 0.2 % 08/24/24 05:33 Neut # (Auto) 6.44 10^3/uL (1.8-7.7) 08/24/24 05:33 Lymph # (Auto) 1.1 10^3/uL (0.8-4.8) 08/24/24 05:33 Motley # (Auto) 0.8 10^3/uL (0.2-0.9) 08/24/24 05:33 Eos # (Auto) 0.0 10^3/uL (0.0-0.8) 08/24/24 05:33 Baso # (Auto) 0.0 10^3/uL (0.0-0.1) 08/24/24 05:33 Nucleated RBC % (auto) 0 % 08/24/24 05:33 Nucleated RBCs # 0.0 /100WBC 08/24/24 05:33 D-Dimer 1.36 ug/mLFEU (0-0.59) H 08/23/24 18:22 Specimen Type Arterial 08/24/24 02:53 Sample Site Radial, left 08/24/24 02:53 ABG pH 7.42 (7.35-7.45) 08/24/24 02:53 ABG pCO2 37.8 mmHg (35-45) 08/24/24 02:53 ABG pO2 74.1 mmHg (80.0-100.0) L 08/24/24 02:53 ABG HCO3 24.3 mmol/L (22-26) 08/24/24 02:53 ABG O2 Saturation 95.1 08/24/24 02:53 ABG Base Excess 0.0 mmol/L (-2.0-2.0) 08/24/24 02:53 Kevin Test Pos 08/24/24 02:53 A-a O2 Gradient 3.8 mmHg (5-10) L 08/24/24 02:53 Hematocrit 38.8 % (42-52) L 08/24/24 02:53 Hgb O2 Saturation 93.2 % (95-100) L 08/24/24 02:53 Carboxyhemoglobin 1.1 %THgb (0.4-20.1) 08/24/24 02:53 Methemoglobin 0.9 % (0.4-1.5) 08/24/24 02:53 Total Hemoglobin 12.7 g/dL (14-18) L 08/24/24 02:53 Sodium 138.0 mmol/L (131-143) 08/24/24 02:53 Potassium 3.5 mmol/L (3.5-5.0) 08/24/24 02:53 Glucose 94.0 mg/dL (70-115) 08/24/24 02:53 Ionized Calcium 1.1 mmol/L (1.1-1.4) 08/24/24 02:53 O2 Delivery Device Nc 08/24/24 02:53 O2 Liters/Min 2.0 % 08/24/24 02:53 Home Care Physical Therapist ID Busja 08/24/24 02:53 Sodium 135 mmol/L (136-145) L 08/24/24 05:33 Potassium 3.9 mmol/L (3.5-5.1) 08/24/24 05:33 Chloride 100 mmol/L (98-107) 08/24/24 05:33 Carbon Dioxide 23 mmol/L (22-29) 08/24/24 05:33 Anion Gap 15.9 (5-19) 08/24/24 05:33 BUN 16 mg/dL (8-23) 08/24/24 05:33 Creatinine 1.2 mg/dL (0.7-1.2) 08/24/24 05:33 GFR Calculation Not Reportable 08/24/24 05:33 Glucose 92 mg/dL (65-115) 08/24/24 05:33 Estimat Average Glucose 108 08/24/24 05:33 Hemoglobin A1c 5.4 % (4.0-6.0) 08/24/24 05:33 Calculated Osmolality 281 mOsm/kg (285-295) L 08/24/24 05:33 Calcium 8.3 mg/dL (8.5-10.5) L 08/24/24 05:33 Magnesium 1.4 mg/dL (1.7-2.3) L 08/24/24 05:33 Iron 68 ug/dL (59-158) 08/24/24 05:33 TIBC 308 mcg/dl 08/24/24 05:33 % Saturation 22.0 % (20-50) 08/24/24 05:33 Unsat Iron Binding 240 ug/dL (112-347) 08/24/24 05:33 Total Bilirubin 0.8 mg/dL (0.15-1.2) 08/24/24 05:33 AST 69 U/L (0-40) H 08/24/24 05:33 ALT 30 U/L (0-41) 08/24/24 05:33 Alkaline Phosphatase 85 U/L (40-130) 08/24/24 05:33 C-Reactive Protein 60.0 mg/L (0.0-4.9) H 08/24/24 05:33 Total Protein 6.9 g/dL (6.6-8.7) 08/24/24 05:33 Albumin 3.3 g/dL (3.5-5.2) L 08/24/24 05:33 Globulin 3.6 g/dL (1.3-4.6) 08/24/24 05:33 Lipase 38 U/L (13-60) 08/23/24 18:12 Vitamin B12 612 pg/mL (232-1245) 08/24/24 05:33 Procalcitonin 0.32 ng/mL (0-0.5) 08/24/24 05:33 TSH 1.74 uIU/mL (0.27-4.20) 08/24/24 05:33 Ethyl Alcohol 52 mg/dL (0-10) H 08/23/24 18:12 Coronavirus (PCR) Negative (Negative) 08/23/24 18:22 Influenza A (PCR) Positive (Negative) 08/23/24 18:22 Influenza Type B (PCR) Negative (Negative) 08/23/24 18:22 RSV (PCR) Negative (Negative) 08/23/24 18:22 Vitals Last Vital Signs Temp 101.6 F H 08/24/24 08:52 Pulse 101 H 08/24/24 09:39 Resp 30 H 08/24/24 09:31 BP 193/96 08/24/24 08:00 Pulse Ox 91 08/24/24 09:31 O2 Del Method Room Air 08/24/24 09:31 O2 Flow Rate 2 08/24/24 00:00 Discharge Plan Discharge Patient Disposition: Left Against Medical Advice Condition: Stable Prescriptions: New ondansetron HCl 4 mg tablet 4 mg PO Q8H Qty: 30 0RF oseltamivir [Tamiflu] 75 mg capsule 75 mg PO BID 5 Days Qty: 10 0RF No Action venlafaxine 75 mg capsule,extended release 24hr 75 mg PO DAILY gabapentin 600 mg tablet 600 mg PO BID levetiracetam 500 mg tablet 500 mg PO DAILY lisinopril 20 mg tablet 20 mg PO DAILY omeprazole 40 mg capsule,delayed release(DR/EC) 40 mg PO QAM tamsulosin 0.4 mg capsule 0.4 mg PO BID trazodone 150 mg tablet 150 mg PO BEDTIME diclofenac sodium 50 mg tablet,delayed release (DR/EC) 50 mg PO BID furosemide 20 mg tablet 20 mg PO DAILY testosterone cypionate 200 mg/mL oil 200 mg IM Q30D albuterol sulfate 90 mcg/actuation HFA aerosol inhaler 2 puff INHALATION Q4H PRN (Reason: Shortness Of Breath) finasteride 5 mg tablet 5 mg PO DAILY Trelegy Ellipta 100-62.5-25 mcg blister with device 1 inh INHALATION DAILY Referrals: Howard Kelly DO [Primary Care Provider] - Patient Instructions: Influenza (ED), Altered Mental Status (ED), Opioid Safety Activity Restrictions/Additional Instructions: Tamiflu as prescribed. Zofran for your nausea. Drink plenty of fluids. Avoid alcohol use. Tylenol/ibuprofen for any body aches or fevers. Please follow-up with primary care. Return with any new or worsening. Discharge Attestations Time Spent in Discharge Care*: greater than 30 min Specific Discharge Activities: educating patient, discussing with pcp/other providers, discussing with case supervisor/social workers/dc planners, documenting/other paperwork and evaluating patient/reviewing data Status at Discharge: Cognitive status at discharge: mildly impaired cognition , Behavioral status at discharge: cooperative and can be uncooperative , Functional status at discharge: uses cane/walker , Overall status at discharge: patient is not back to baseline Quality Metrics Clinical Quality Measures [ No reported AMI, CVA or VTE this stay] Coding Level of Care Code 57030 Total time (in minutes) for Discharge: 60 Diagnoses Alcohol withdrawal F10.931 Complication of substance-induced condition: with delirium Influenza A J10.1 Altered mental status R41.0 Altered mental status type: delirium Delirium R41.0 Intoxication Dehydration E86.0 Hypoxia R09.02
== END 2024-08-24 11:30 | disposition left against medical advice (07) ==
LOC: ER 20:22 → MEDSURG 20:46
PROVIDERS: Emergency Medicine; Admitting Provider Internal Medicine; Emergency Provider Physician Assistant; PCP Electrodiagnostic Medicine; Visit Provider Student in an Organized Health Care Education/Training Program
DX: J10.1 Influenza due to other identified influenza virus with other respiratory manifestations (principal); R41.0 Disorientation, unspecified; F10.931 Alcohol use, unspecified with withdrawal delirium; Z79.899 Other long term (current) drug therapy; F41.8 Other specified anxiety disorders; I10 Essential (primary) hypertension; K21.9 Gastro-esophageal reflux disease without esophagitis; R47.89 Other speech disturbances; Z11.52 Encounter for screening for COVID-19; N40.0 Benign prostatic hyperplasia without lower urinary tract symptoms; R00.0 Tachycardia, unspecified; R19.7 Diarrhea, unspecified; R10.9 Unspecified abdominal pain; R11.2 Nausea with vomiting, unspecified; R06.00 Dyspnea, unspecified; R00.2 Palpitations; E86.0 Dehydration; F17.200 Nicotine dependence, unspecified, uncomplicated; Z53.29 Procedure and treatment not carried out because of patient's decision for other reasons
CPT/HCPCS: 36415; 36600; 51702; 71045; 80048; 80051; 80053; 80307; 82330; 82607; 82805; 83036; 83540; 83550; 83690; 83735; 84145; 84443; 85025; 85378; 86140; 87637; 93306; 94640; 96372; 96374; 96375; 96376; 99285; G0378; J0360; J1644; J2060; J2405; J2470; J2560; J3411; J3490; J7030; J7626; J7644; Q0162

== ENCOUNTER 2024-09-04 06:32 | Inpatient (IN) | payer MEDICARE, MEDICAID, SELFPAY ==
[2024-09-04] VITALS (18 sets, daily range): BP systolic 145–204; BP diastolic 69–115; PULSE 75–97; RESP 16–25; TEMP 36.5–36.7; O2SAT 91–96; BMI 30.5
--- NOTE | 2024-09-04 06:50 | ECG_ITS ---
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 Measurements Intervals [place] Rate: 91 P: 44 NV: 160 QRS: 1 QRSD: 105 T: 8 QT: 393 QTc: 485 Interpretive Statements SINUS RHYTHM Compared to ECG 07/18/2024 15:32:00 No significant changes Electronically Signed On 09-06-2024 17:55:36 CLINIC MGR by Joey Johnson M.D. [email or web address]
--- NOTE | 2024-09-04 06:50 | XR_ITS ---
WS: [id number] Exam: XR chest 1V portable [id number] Date/Time of Exam: 09/04/2024 7:16 AM Reason For Exam: dyspnea/cough Comparison 08/23/2024. Lungs are fully expanded and clear. Chronic interstitial changes. Hiatal hernia. Normal cardiomediastinal silhouette and bony structures. XR/XR chest 1V portable [id number] IMPRESSION: 1. No acute cardiopulmonary finding.
--- NOTE | 2024-09-04 06:51 | W.ED.SOB ---
HPI - SOB/Dyspnea General: Chief Complaint: Shortness of Breath/Dyspnea Stated Complaint: sob Time Seen by Provider: 09/04/24 06:36 History of Present Illness: HPI Narrative: 73-year-old male presents emergency room complaining of shortness of breath. He states he was here recently. He states he is having difficult time breathing he states he was supposed to be set up with oxygen at home but has not yet received it. Shortness of breath been going on for a week he has a nonproductive cough he is epigastric pain when he coughs in his abdominal wall he does not have any hemoptysis. Reviewed the old chart patient was here on August 23 time presented he was intoxicated covered in feces and vomit. He left AMA the following day. At that time he was positive for influenza A he had been counseled about the risks of being discharged early and still insists on leaving he was discharged home on Tamiflu. Patient does continue to smoke. Reviewing discharge summary he was not discharged home on any antibiotics did not look like he had an acute bacterial infection at the time. He is on Trelegy Ellipta he is also on albuterol. There is no mention of plans in the discharge summary for oxygen at home. Associated symptoms: Deny abdominal pain, chest pain or fever(s) Related Data Home Medications ?Medication ?Instructions ?Recorded ?Confirmed albuterol sulfate 90 mcg/actuation 2 puff inhalation Q4H PRN 07/18/24 09/04/24 aerosol inhaler Shortness Of Breath diclofenac sodium 50 mg 50 mg PO BID 07/18/24 09/04/24 tablet,delayed release finasteride 5 mg tablet 5 mg PO DAILY 07/18/24 09/04/24 fluticasone fur. 100 mcg-umeclid 1 inh inhalation DAILY 07/18/24 09/04/24 62.5 mcg-vilant 25 mcg inhalat.powder (Trelegy Ellipta) furosemide 20 mg tablet 20 mg PO DAILY 07/18/24 09/04/24 gabapentin 600 mg tablet 600 mg PO BID 07/18/24 09/04/24 levetiracetam 500 mg tablet 500 mg PO DAILY 07/18/24 09/04/24 lisinopril 20 mg tablet 20 mg PO DAILY 07/18/24 09/04/24 omeprazole 40 mg capsule,delayed 40 mg PO QAM 07/18/24 09/04/24 release tamsulosin 0.4 mg capsule 0.4 mg PO BID 07/18/24 09/04/24 testosterone cypionate 200 mg/mL 200 mg IM Q30D 07/18/24 09/04/24 intramuscular oil trazodone 150 mg tablet 150 mg PO BEDTIME 07/18/24 09/04/24 venlafaxine 75 mg capsule,extended 75 mg PO DAILY 07/18/24 09/04/24 release 24 hr albuterol sulfate 2.5 mg/3 mL 2.5 mg inhalation Q4H 09/04/24 09/04/24 (0.083 %) solution for nebulization hydrocodone 5 mg-acetaminophen 325 1 tab PO TID 09/04/24 09/04/24 mg tablet loperamide 2 mg capsule 4 mg PO Q4H 09/04/24 09/04/24 nystatin 100,000 unit/mL oral 5 ml PO QID 09/04/24 09/04/24 suspension ondansetron 8 mg disintegrating 8 mg PO TID 09/04/24 09/04/24 tablet prednisone 20 mg tablet 40 mg PO DAILY 09/04/24 09/04/24 Allergies Allergy/AdvReac Type Severity Reaction Status Date / Time No Known Allergies Allergy Verified 09/04/24 06:40 Review of Systems Const: Denies: fever(s) or chills Card: Denies: chest pain Resp: Denies: dyspnea GI: Denies: abdominal pain : Denies: dysuria, urinary frequency or urinary urgency Musc: Denies: neck pain or back pain Skin/Breast: Denies: rash PFS ED PFSH: Medical History Anxiety and depression Alcohol withdrawal -Long history of chronic alcohol abuse; EtOH of 138 on admission -Very high risk for withdrawal, currently delirious; has prior hx of DTs, withdrawal seizures -Continue scheduled Librium, CIWA protocol; will discontinue Librium due to noted somnolence this morning -Continue multivitamins, thiamine, folic acid daily -tolerating oral intake without difficulty; d/c IVF hydration -Fall/aspiration/seizure precautions -continues to protect his airway, no need for supplemental oxygen; continue to close monitoring of respiratory status -VSS; continue to monitor BPH (benign prostatic hyperplasia) Hypertension GERD (gastroesophageal reflux disease) Chronic back pain Surgical History History of back surgery Social History Smoking and tobacco/nicotine status: unknown if used tobacco/nicotine Alcohol intake: current Alcohol intake frequency: 3 or more drinks per day Alcohol type: hard liquor Substance/Drug Use: never Physical Exam Const: GENERAL APPEARANCE: cooperative ORIENTATION/CONSCIOUSNESS: Yes awake HENMT: COMMON NORMALS: normocephalic, atraumatic and hearing grossly normal bilaterally HEAD & SCALP: normocephalic and atraumatic Resp: COMMON NORMALS: normal respiratory effort, No retractions, No use of accessory muscles and clear to auscultation bilaterally AUSCULTATION: clear to auscultation bilaterally Cardio: COMMON NORMALS: regular rate, regular rhythm and No murmurs present (Cardio) RATE: regular rate RHYTHM: regular rhythm GI: COMMON NORMALS: Soft to palpation and No hepatosplenomegaly present AUSCULTATION: Yes normoactive bowel sounds PALPATION: Yes Soft to palpation, No Tenderness to palpation present (GI), No Guarding due to palpation present (GI) and Yes No hepatosplenomegaly present Extremity: COMMON NORMALS: normal to inspection, capillary refill normal, no clubbing, cyanosis or edema, no calf tenderness and no pedal edema Skin: COMMON NORMALS: no rashes or lesions noted GENERAL SKIN EXAM: no rashes or lesions noted Course Vital Signs: Vital signs: Vital Signs Temperature 98.1 F 09/04/24 17:41 Pulse Rate 94 09/04/24 17:41 Respiratory Rate 18 09/04/24 17:41 Blood Pressure 161/99 09/04/24 17:41 Pulse Oximetry 93 09/04/24 17:41 Oxygen Delivery Me thod Room Air 09/04/24 17:41 MDM - SOB/Dyspnea Medical Decision Making Patient recently hospitalized with pneumonia after a influenza A 6 infection. He left AMA. Does not sound like confirming talking to him that he use medications he was given at discharge. Worsening hypoxia now with worsening pneumonia. Patient is acutely intoxicated as well. Will admit restart IV antibiotics cussed with hospitalist orders written Medical Records I reviewed the patient's medical records. Lab Data I reviewed the patient's lab results. 09/04/24 06:47 09/04/24 06:47 Labs/Radiology: Radiology Impressions Chest X-Ray 09/04/24 06:50 IMPRESSION: 1. No acute cardiopulmonary finding. Chest CTA 09/04/24 08:29 IMPRESSION: 1. No pulmonary embolism. 2. No RIGHT heart strain. 3. Mild atherosclerosis aorta. 4. New, multilobar areas of groundglass attenuation and tree-in-bud airspace disease, greatest throughout the RIGHT lung consistent with acute endobronchial pneumonia or pneumonitis. 5. Suspect since 2021 there may be development of chronic interstitial pulmonary fibrosis as there is honeycombing developing. After this acute pulmonary process has resolved a follow-up chest CT will help to determine if there is a more chronic progressive disease. Laboratory Results WBC 13.24 10^3/uL (3.29-11.43) H 09/04/24 06:47 RBC 4.87 10^6/uL (3.85-5.65) 09/04/24 06:47 Hgb 12.90 g/dL (11.27-16.99) 09/04/24 06:47 Hct 42.2 % (37-53) 09/04/24 06:47 MCV 86.7 fl (82-101) 09/04/24 06:47 MCH 26.5 pg (27-33) L 09/04/24 06:47 MCHC 30.6 g/dL (30-55) 09/04/24 06:47 RDW 19.9 % (12.1-15.1) H 09/04/24 06:47 Plt Count 320 10^3/cmm (157-399) 09/04/24 06:47 MPV 10.1 fL (7.4-10.4) 09/04/24 06:47 Neut % (Auto) 74.5 % 09/04/24 06:47 Lymph % (Auto) 16.8 % 09/04/24 06:47 Collin % (Auto) 6.0 % 09/04/24 06:47 Eos % (Auto) 0.5 % 09/04/24 06:47 Baso % (Auto) 0.2 % 09/04/24 06:47 Neut # (Auto) 9.85 10^3/uL (1.8-7.7) H 09/04/24 06:47 Lymph # (Auto) 2.2 10^3/uL (0.8-4.8) 09/04/24 06:47 Collin # (Auto) 0.8 10^3/uL (0.2-0.9) 09/04/24 06:47 Eos # (Auto) 0.1 10^3/uL (0.0-0.8) 09/04/24 06:47 Baso # (Auto) 0.0 10^3/uL (0.0-0.1) 09/04/24 06:47 Nucleated RBC % (auto) 0.2 % 09/04/24 06:47 Nucleated RBCs # 0.0 /100WBC 09/04/24 06:47 D-Dimer 1.21 ug/mLFEU (0-0.59) H 09/04/24 06:47 Specimen Type Arterial 09/04/24 07:01 Sample Site Radial, left 09/04/24 07:01 ABG pH 7.49 (7.35-7.45) H 09/04/24 07:01 ABG pCO2 39.3 mmHg (35-45) 09/04/24 07:01 ABG pO2 58.6 mmHg (80.0-100.0) L 09/04/24 07:01 ABG PO2/FiO2 Ratio 279 09/04/24 07:01 ABG HCO3 30.2 mmol/L (22-26) H 09/04/24 07:01 ABG O2 Saturation 89.5 09/04/24 07:01 ABG Base Excess 6.4 mmol/L (-2.0-2.0) H 09/04/24 07:01 Kevin Test Pos 09/04/24 07:01 A-a O2 Gradient 5.7 mmHg (5-10) 09/04/24 07:01 Hematocrit 40.1 % (42-52) L 09/04/24 07:01 Hgb O2 Saturation 87.6 % (95-100) L 09/04/24 07:01 Carboxyhemoglobin 1.2 %THgb (0.4-20.1) 09/04/24 07:01 Methemoglobin 0.9 % (0.4-1.5) 09/04/24 07:01 Total Hemoglobin 13.1 g/dL (14-18) L 09/04/24 07:01 Sodium 142.0 mmol/L (131-143) 09/04/24 07:01 Potassium 2.4 mmol/L (3.5-5.0) L 09/04/24 07:01 Glucose 129.0 mg/dL (70-115) H 09/04/24 07:01 Ionized Calcium 1.1 mmol/L (1.1-1.4) 09/04/24 07:01 O2 Delivery Device Room air 09/04/24 07:01 FiO2 21.0 % 09/04/24 07:01 Burlap Bag Sewer ID [place] 09/04/24 07:01 Sodium 139 mmol/L (136-145) 09/04/24 06:47 Potassium 2.9 mmol/L (3.5-5.1) L 09/04/24 06:47 Chloride 98 mmol/L (98-107) 09/04/24 06:47 Carbon Dioxide 25 mmol/L (22-29) 09/04/24 06:47 Anion Gap 18.9 (5-19) 09/04/24 06:47 BUN 14 mg/dL (8-23) 09/04/24 06:47 Creatinine 1.1 mg/dL (0.7-1.2) 09/04/24 06:47 GFR Calculation Not Reportable 09/04/24 06:47 Glucose 134 mg/dL (65-115) H 09/04/24 06:47 Calculated Osmolality 290 mOsm/kg (285-295) 09/04/24 06:47 Calcium 8.0 mg/dL (8.5-10.5) L 09/04/24 06:47 Total Bilirubin 0.4 mg/dL (0.15-1.2) 09/04/24 06:47 AST 46 U/L (0-40) H 09/04/24 06:47 ALT 55 U/L (0-41) H 09/04/24 06:47 Alkaline Phosphatase 109 U/L (40-130) 09/04/24 06:47 Troponin T Baseline 59 ng/L (0-15) H 09/04/24 06:47 Troponin T 120 Minute 49.04 ng/L (0-15) H 09/04/24 09:05 Delta Troponin T -9.96 ABS# (0-10) L 09/04/24 09:05 Total Protein 6.5 g/dL (6.6-8.7) L 09/04/24 06:47 Albumin 3.1 g/dL (3.5-5.2) L 09/04/24 06:47 Globulin 3.4 g/dL (1.3-4.6) 09/04/24 06:47 Ethyl Alcohol 105 mg/dL (0-10) H 09/04/24 06:47 Influenza A (PCR) Negative (Negative) 09/04/24 07:07 Influenza Type B (PCR) Negative (Negative) 09/04/24 07:07 RSV (PCR) Negative (Negative) 09/04/24 07:07 SARS-CoV-2 (PCR) Negative (Negative) 09/04/24 07:07 All radiology interpretation(s) finalized by discharge Discharge Plan Discharge Patient Disposition: Admitted As Inpatient Admit Provider: Mike Sun Clinical Impression: Pneumonia, Hypoxia, Delirium, Influenza A Condition: Stable Coding Level of Care Code ED Animation Director for Soni Hilliard
[2024-09-04 07:12] LABS: ABG PCO2 39.3 mmHg (35-45); ABG PH Result 7.49 (7.35-7.45); Alveolar-Arterial Oxygen Gradi 5.7 mmHg (5-10); Arterial Blood Gas Hematocrit 40.1 % (42-52); Base Excess ABG 6.4 mmol/L (-2.0-2.0); Blood Gas Allen Test Pos; Blood Gas Operator Identificat WALCI; Blood Gas Sample Site Radial, left; Blood Gas Sample Type Arterial; Carboxyhemoglobin 1.2 %THgb (0.4-20.1); HCO3 ABG 30.2 mmol/L (22-26); HGB O2 Sat 87.6 % (95-100); Ionized Calcium Level - ABG 1.1 mmol/L (1.1-1.4); Methemoglobin 0.9 % (0.4-1.5); Oxygen Device ROOM AIR; Oxygen Saturation ABG 89.5; PO2 ABG 58.6 mmHg (80.0-100.0); PO2 FiO2 Ratio Arterial Blood 279; Potassium Level - ABG 2.4 mmol/L (3.5-5.0); Total Hemoglobin 13.1 g/dL (14-18)
[2024-09-04] MEDS: dexamethasone 10 mg/mL INJ IM (07:12)
[2024-09-04 07:13] LABS: Basophils % 0.2 %; Eosinophils # 0.1 10^3/uL (0.0-0.8); Eosinophils % 0.5 %; Hematocrit 42.2 % (37-53); Lymphocytes # 2.2 10^3/uL (0.8-4.8); Lymphocytes % 16.8 %; Mean Corpuscular HGB Conc 30.6 g/dL (30-55); Mean Corpuscular Hemoglobin 26.5 pg (27-33); Mean Corpuscular Volume 86.7 fl (82-101); Mean Platelet Volume 10.1 fL (7.4-10.4); Monocytes # 0.8 10^3/uL (0.2-0.9); Neutrophils # 9.85 10^3/uL (1.8-7.7); Neutrophils % 74.5 %; Nucleated Red Blood Cells % 0.2 %; Platelet Count 320 10^3/cmm (157-399); Red Blood Count 4.87 10^6/uL (3.85-5.65); Red Cell Distribution Width 19.9 % (12.1-15.1); White Blood Count 13.24 10^3/uL (3.29-11.43)
[2024-09-04] MEDS: ipratropium-albuterol 3 mL Neb INHALATION ×4 (07:17→21:11)
[2024-09-04 07:33] LABS: D Dimer 1.21 ug/mLFEU (0-0.59)
[2024-09-04 07:51] LABS: Alanine Aminotransferase 55 U/L (0-41); Albumin Level 3.1 g/dL (3.5-5.2); Alkaline Phosphatase 109 U/L (40-130); Anion Gap 18.9 (5-19); Aspartate Amino Transferase 46 U/L (0-40); Blood Urea Nitrogen 14 mg/dL (8-23); Carbon Dioxide 25 mmol/L (22-29); Chloride 98 mmol/L (98-107); Creatinine Clr Calc Pharmacy 63.4811; Globulin 3.4 g/dL (1.3-4.6); Glucose 134 mg/dL (65-115); Osmolality Calculated 290 mOsm/kg (285-295); Sodium 139 mmol/L (136-145); Total Bilirubin 0.4 mg/dL (0.15-1.2); Total Protein 6.5 g/dL (6.6-8.7)
[2024-09-04 07:53] LABS: Troponin(5th) Baseline 59 ng/L (0-15)
[2024-09-04 07:54] LABS: Alcohol Level 105 mg/dL (0-10)
[2024-09-04 08:02] LABS: Potassium 2.9 mmol/L (3.5-5.1)
[2024-09-04 08:22] LABS: Influenza A NEGATIVE (Negative); Influenza B NEGATIVE (Negative); Respiratory Syncytial Virus Ce NEGATIVE (Negative); SARS-CoV-2 PCR NEGATIVE (Negative)
[2024-09-04] MEDS: potassium chloride oral liq 20 mEq/15 mL UDC 40 MEQ PO (08:23)
--- NOTE | 2024-09-04 08:29 | CT_ITS ---
WS: [id number] CT CHEST ANGIOGRAPHY WITH REFORMATS HISTORY: Elevated D-dimer, shortness of breath TECHNIQUE: Contiguous axial images are obtained through the chest during arterial injection of intravenous contrast. Images are reconstructed to evaluate the pulmonary arteries. MIP imaging also reviewed. All CT scans at [facility] use at least one of these dose optimization techniques: automated exposure control; mA and/or kV adjustment per patient size (includes targeted exams where dose is matched to clinical indication); or iterative reconstruction. CONTRAST: Omnipaque 350; 100 mL IV. DLP: 410.47 mGy.cm COMPARISON: 12/25/2021 Good opacification of the pulmonary arteries. No pulmonary emboli identified through the segmental branches and some of the subsegmental branches. Normal size pulmonary artery. Normal size aorta with atherosclerotic plaque. No RIGHT heart strain. There is very slight enlargement of the LEFT ventricle. No pericardial or pleural effusions. Small mediastinal and hilar lymph nodes. Hyperexpanded lungs. New since the prior examination of 12/25/2021 Areas of interstitial pulmonary fibrosis with honeycombing. New scattered tiny nodules and groundglass opacifications. Slightly greater involvement of the RIGHT lung. Moderate size hiatal hernia. Hepatic steatosis. No adrenal mass. Slight increase in thoracic kyphosis. No destructive bone lesions. CT/CT angio chest PE protcl [id number] IMPRESSION: 1. No pulmonary embolism. 2. No RIGHT heart strain. 3. Mild atherosclerosis aorta. 4. New, multilobar areas of groundglass attenuation and tree-in-bud airspace d isease, greatest throughout the RIGHT lung consistent with acute endobronchial pneumonia or pneumonitis. 5. Suspect since 2021 there may be development of chronic interstitial pulmona ry fibrosis as there is honeycombing developing. After this acute pulmonary pro cess has resolved a follow-up chest CT will help to determine if there is a mor e chronic progressive disease.
[2024-09-04] MEDS: ketorolac 30 mg/mL INJ IVP (08:47)
--- NOTE | 2024-09-04 09:14 | ECG_ITS ---
[facility] Date: 2024-09-04 Pat Name: Julio Mccann Department: Room: Gender: Male Manugrapher: : 1950 Requested By: Mark Anthony Garcia Order Number: [id number] Reading MD: ANTONIO PLUNKETT Measurements Intervals Clear Rate: 89 P: 54 SC: 167 QRS: 0 QRSD: 97 T: 16 QT: 400 QTc: 488 Interpretive Statements SINUS RHYTHM Compared to ECG 09/04/2024 06:38:35 No significant changes Electronically Signed On 09-11-2024 23:56:40 SUPERVISOR COATING by ANTONIO PLUNKETT [email or web address]
[2024-09-04 09:30] LABS: Troponin 5 2HR 49.04 ng/L (0-15); Troponin 5 2HR Delta -9.96 ABS# (0-10)
[2024-09-04] MEDS: piperacillin-tazobactam 3.375 GM in sodium chloride 0.9% (plus) 50 ML IV ×2 (10:05→17:46)
[2024-09-04] MEDS: VANCOMYCIN ADD-Vantage 1,000 MG in 0.9% NaCl ADD-Vantage 250 ML 250 MG IV ×2 (10:55→20:44)
[2024-09-04] MEDS: HYDROcodone-acetaminophen 5-325 mg Tablet 1 TAB PO ×3 (12:12→20:44)
[2024-09-04] MEDS: hyDRALAzine 20 mg/mL INJ 1 mL IVP (12:12)
[2024-09-04] MEDS: labetalol 5 mg/mL SDV 20mL 10 MG IVP (12:12)
--- NOTE | 2024-09-04 12:50 | ECG_ITS ---
[facility] Date: 2024-09-04 Pat Name: Julio Mccann Department: Room: EDIP Gender: Male Ring Packer: : 1950 Requested By: Mark Anthony Garcia Order Number: [id number] Reading MD: ANTONIO PLUNKETT Measurements Intervals [place] Rate: 86 P: 62 ND: 172 QRS: 38 QRSD: 104 T: 28 QT: 411 QTc: 493 Interpretive Statements SINUS RHYTHM NONSPECIFIC T-WAVE ABNORMALITY Compared to ECG 09/04/2024 09:14:08 T-wave abnormality now present Electronically Signed On 09-11-2024 23:56:03 BROACH OPERATOR by ANOTNIO PLUNKETT [email or web address] [id number]
--- NOTE | 2024-09-04 12:50 | PM.HP ---
Providers/Chief Complaint Admitting Physician: Mike Sun Primary Care Provider: Howard Kelly DO Chief Complaint: sob History of Present Illness Pleasant 73-year-old gentleman with history of alcohol use disorder, alcohol withdrawal, BPH, HTN, GERD, chronic back pain, recently hospitalized 08/23-08/24 for assessment of management of pneumonia after influenza A infection, suspected aspiration pneumonia, as well as alcohol withdrawal, he was treated with IV antibiotics, Tamiflu, IV fluids, oxygen support, he left the hospitalization AGAINST MEDICAL ADVICE. He returns to the hospital today due to persistent shortness of breath, cough, having some upper abdominal discomfort with cough, dyspnea, dyspnea with exertion. In ER with leukocytosis 13.24, mild transaminitis 42, 55 AST and ALT respectively, normal T. bili and alk phos. Mild troponin elevation 59, 49 2 hours. EtOH 105. Chest x-ray without acute cardiopulmonary finding. D-dimer abnormal 1.21, CTA chest with new multilobar areas of groundglass continuation and tree-in-bud airspace disease, greatest throughout the right lung consistent with acute endobronchial pneumonia or pneumonitis. Suspected since 2021, possible chronic interstitial pulmonary fibrosis, honeycombing. Recommended follow-up chest CT after acute process resolved. Review of Systems Const: Denies: fever(s), chills, body aches or malaise ENMT: Denies: throat pain Card: Denies: chest pain, edema, pre-syncope or dyspnea on exertion Resp: Reports: dyspnea; Denies: change in phlegm color or hemoptysis GI: Denies: abdominal pain, nausea, vomiting, diarrhea, constipation, hematochezia or melena : Denies: flank pain, difficulty urinating, urinary frequency or hematuria Musc: Denies: back pain, joint swelling or joint redness Skin/Breast: Denies: rash or new lesions Neuro: Denies: headache(s) or confusion Medications/Allergies Home Medications ?Medication ?Instructions ?Recorded ?Confirmed ?Last Taken ?Type albuterol sulfate 90 mcg/actuation 2 puff inhalation Q4H PRN 07/18/24 09/04/24 Unknown History aerosol inhaler Shortness Of Breath diclofenac sodium 50 mg 50 mg PO BID 07/18/24 09/04/24 07/18/24 History tablet,delayed release finasteride 5 mg tablet 5 mg PO DAILY 07/18/24 09/04/24 07/18/24 History fluticasone fur. 100 mcg-umeclid 1 inh inhalation DAILY 07/18/24 09/04/24 07/18/24 History 62.5 mcg-vilant 25 mcg inhalat.powder (Trelegy Ellipta) furosemide 20 mg tablet 20 mg PO DAILY 07/18/24 09/04/24 07/18/24 History gabapentin 600 mg tablet 600 mg PO BID 07/18/24 09/04/24 07/18/24 History levetiracetam 500 mg tablet 500 mg PO DAILY 07/18/24 09/04/24 07/18/24 History lisinopril 20 mg tablet 20 mg PO DAILY 07/18/24 09/04/24 07/18/24 History omeprazole 40 mg capsule,delayed 40 mg PO QAM 07/18/24 09/04/24 07/18/24 History release tamsulosin 0.4 mg capsule 0.4 mg PO BID 07/18/24 09/04/24 07/18/24 History testosterone cypionate 200 mg/mL 200 mg IM Q30D 07/18/24 09/04/24 Unknown History intramuscular oil trazodone 150 mg tablet 150 mg PO BEDTIME 07/18/24 09/04/24 07/17/24 History venlafaxine 75 mg capsule,extended 75 mg PO DAILY 07/18/24 09/04/24 07/18/24 History release 24 hr albuterol sulfate 2.5 mg/3 mL 2.5 mg inhalation Q4H 09/04/24 09/04/24 Unknown History (0.083 %) solution for nebulization hydrocodone 5 mg-acetaminophen 325 1 tab PO TID 09/04/24 09/04/24 Unknown History mg tablet loperamide 2 mg capsule 4 mg PO Q4H 09/04/24 09/04/24 Unknown History nystatin 100,000 unit/mL oral 5 ml PO QID 09/04/24 09/04/24 Unknown History suspension ondansetron 8 mg disintegrating 8 mg PO TID 09/04/24 09/04/24 Unknown History tablet prednisone 20 mg tablet 40 mg PO DAILY 09/04/24 09/04/24 Unknown History Allergies Allergy/AdvReac Type Severity Reaction Status Date / Time No Known Allergies Allergy Verified 09/04/24 06:40 PFSH Acute PFSH: Medical History Anxiety and depression Alcohol withdrawal -Long history of chronic alcohol abuse; EtOH of 138 on admission -Very high risk for withdrawal, currently delirious; has prior hx of DTs, withdrawal seizures -Continue scheduled Librium, CIWA protocol; will discontinue Librium due to noted somnolence this morning -Continue multivitamins, thiamine, folic acid daily -tolerating oral intake without difficulty; d/c IVF hydration -Fall/aspiration/seizure precautions -continues to protect his airway, no need for supplemental oxygen; continue to close monitoring of respiratory status -VSS; continue to monitor BPH (benign prostatic hyperplasia) Hypertension GERD (gastroesophageal reflux disease) Chronic back pain Surgical History History of back surgery Social History Smoking and tobacco/nicotine status: unknown if used tobacco/nicotine Alcohol intake: current Alcohol intake frequency: 3 or more drinks per day Alcohol type: hard liquor Substance/Drug Use: never Vitals/I&O/Wt Last Vital Signs Temp 98.1 F 09/04/24 06:36 Pulse 84 09/04/24 12:30 Resp 17 09/04/24 10:00 BP 157/82 09/04/24 12:30 Pulse Ox 94 09/04/24 12:30 O2 Del Method Room Air 09/04/24 11:00 09/03/24 09/04/24 09/04/24 22:59 06:59 14:59 Intake Total 0 / 0 Balance 0 / 0 Weight last 48 hrs Weight 88.451 kg Physical Exam Const: COMMON NORMALS: patient oriented x3 and alert GENERAL APPEARANCE: cooperative ORIENTATION/CONSCIOUSNESS: Yes awake HENMT: COMMON NORMALS: oropharynx normal Neck/C-Spine: COMMON NORMALS: no JVD Resp: COMMON NORMALS: normal respiratory effort AUSCULTATION: rhonchi and wheezes Cardio: COMMON NORMALS: no JVD, regular rhythm, S1 normal heart sound present, S2 normal heart sound present and No murmurs present (Cardio) RHYTHM: regular rhythm HEART SOUNDS: S1 normal heart sound present and S2 normal heart sound present GI: COMMON NORMALS: Normal to inspection, nondistended, normoactive bowel sounds present, Soft to palpation and non-tender PALPATION: Yes Soft to palpation Extremity: COMMON NORMALS: no joint enlargement and no pedal edema Neuro: COMMON NORMALS: patient oriented x3 and moves all extremities SENSORIUM/ORIENTATION: Yes alert Skin: COMMON NORMALS: no rashes or lesions noted GENERAL SKIN EXAM: no rashes or lesions noted Data 09/04/24 06:47 09/04/24 06:47 Micro: Microbiology 09/04/24 10:00 Blood Culture - Preliminary Blood SPECIMEN COLLECTED 09/04/24 10:00 Blood Culture - Preliminary Blood SPECIMEN COLLECTED A&P Assessment and plan (1) Pneumonia: Nonresolving pneumonia. Treated for pneumonia after influenza A infection, also possible aspiration pneumonia earlier this month, but left AMA On 08/24, return to the hospital with shortness of breath, multilobar groundglass attenuation, tree-in-bud airspace disease, greatest in the right lung, may again suspect also aspiration. Again with alcohol intoxication, EtOH 105. Will need to monitor for withdrawal. Received Zosyn, Vanco with recent hospitalization continue these antibiotics for possible hospital-acquired pneumonia. Monitor for risk of kidney injury with antibiotic combination. Reassess kidney function. Collect sputum culture. Breathing treatments. Monitor oxygenation. Reviewed vitals, CBC, D-dimer, ABG, CMP, troponin, EtOH, influenza, COVID, RSV PCR, chest x-ray, CTA, ER provider note, discussed with ER provider. (2) Intoxication: Alcohol use disorder, currently EtOH level elevated 105. Monitor for risk of withdrawal. Continue thiamine, folic acid, multivitamin. CIWA protocol with benzodiazepine. Discussed alcohol cessation with him. He had previously been able to quit drinking for some time in the past. In the past did attend rehabilitation as well. Will request case management consultation to assist with rehab options. Plan Troponin elevation: Complete troponin and EKG series. Smoking: He has cut down on smoking, but still smokes several cigarettes in a day. Encouraged smoke cessation, discussed vaccination with him for 3 and half minutes, he understands that he would benefit from quitting. Nicotine replacement as needed. BPH, continue tamsulosin, finasteride HTN, continue lisinopril GERD, continue PPI Chronic back pain: Acetaminophen as needed. Continue home hydrocodone as needed. PDMP PDMP Reviewed: Last Reviewed 09/04/24 13:11 by Mike Sun MD Attestations Medical Necessity Statement*: Place in observation for additional assessment management of nonresolving/recurrent pneumonia, possible hospital-acquired pneumonia, possible suppression pneumonia, intermittent with alcohol intoxication, risk of alcohol withdrawal with recent hospitalization for treatment of pneumonia, alcohol withdrawal. and High MDM includes amount and/or complexity of data reviewed/ordered [ previous or external records, resulted lab(s)/test(s), ordered lab(s)/test(s) and other healthcare professional discussion] and described risk of complication, morbidity or mortality of management as documented Diagnoses Pneumonia J18.9 Intoxication
[2024-09-04 13:29] LABS: Troponin 5 6HR 40.64 ng/L (0-15)
[2024-09-04] MEDS: thiamine 100 mg/mL 2mL SDV IM (13:50)
[2024-09-04 14:00] LABS: Troponin 5 6HR Delta -18.36 ng/L (0-12)
[2024-09-04] MEDS: LORazepam 2 mg/mL INJ 1 mL IVP (14:54)
--- NOTE | 2024-09-04 16:38 | PHA.VACGOAL ---
Vancomycin Goal - Goal Vancomycin Goal:: 15-20 mg/L Vancomycin Indication:: Pneumonia - Therapy Current therapy:: Pip/Tazo Day of therpy:: Day []of [] . Actual body weight (kg): 195 lb - Data Labs: WBC 13.24 10^3/uL (3.29-11.43) H 09/04/24 06:47 RBC 4.87 10^6/uL (3.85-5.65) 09/04/24 06:47 Hgb 12.90 g/dL (11.27-16.99) 09/04/24 06:47 Hct 42.2 % (37-53) 09/04/24 06:47 MCV 86.7 fl (82-101) 09/04/24 06:47 MCH 26.5 pg (27-33) L 09/04/24 06:47 MCHC 30.6 g/dL (30-55) 09/04/24 06:47 RDW 19.9 % (12.1-15.1) H 09/04/24 06:47 Sodium 139 mmol/L (136-145) 09/04/24 06:47 Potassium 2.9 mmol/L (3.5-5.1) L 09/04/24 06:47 Chloride 98 mmol/L (98-107) 09/04/24 06:47 Carbon Dioxide 25 mmol/L (22-29) 09/04/24 06:47 Anion Gap 18.9 (5-19) 09/04/24 06:47 BUN 14 mg/dL (8-23) 09/04/24 06:47 Creatinine 1.1 mg/dL (0.7-1.2) 09/04/24 06:47 GFR Calculation Not Reportable 09/04/24 06:47 Treatment plan:: new consult Regimen:: 1000 MG Q12H
[2024-09-04] MEDS: gabapentin 300 mg Capsule 600 MG PO (17:45)
[2024-09-04] MEDS: tamsulosin 0.4 mg Capsule PO (17:46)
[2024-09-04] MEDS: LORazepam 2 mg/mL INJ 1 mL IM (20:55)
[2024-09-05] VITALS (15 sets, daily range): BP systolic 104–159; BP diastolic 59–89; PULSE 82–102; RESP 16–20; TEMP 36.4–36.8; O2SAT 92–98
[2024-09-05] MEDS: guaiFENesin-dextromethorphan UDC 10 mL 20 ML PO (00:06)
[2024-09-05] MEDS: piperacillin-tazobactam 3.375 GM in sodium chloride 0.9% (plus) 50 ML IV ×3 (01:31→17:39)
[2024-09-05] MEDS: LORazepam 2 mg/mL INJ 1 mL IM ×3 (02:16→21:20)
[2024-09-05] MEDS: ipratropium-albuterol 3 mL Neb INHALATION ×4 (02:38→20:24)
[2024-09-05] MEDS: pantoprazole DR 40 mg Tablet PO (05:14)
[2024-09-05 08:21] LABS: Basophils # 0.1 10^3/uL (0.0-0.1); Basophils % 0.2 %; Eosinophils % 0.2 %; Hematocrit 40.3 % (37-53); Lymphocytes # 3.1 10^3/uL (0.8-4.8); Lymphocytes % 14.8 %; Mean Corpuscular HGB Conc 30.8 g/dL (30-55); Mean Corpuscular Volume 87.8 fl (82-101); Mean Platelet Volume 9.6 fL (7.4-10.4); Monocytes # 0.8 10^3/uL (0.2-0.9); Monocytes % 3.9 %; Neutrophils # 16.86 10^3/uL (1.8-7.7); Neutrophils % 79.9 %; Nucleated Red Blood Cells % 0 %; Platelet Count 301 10^3/cmm (157-399); Red Blood Count 4.59 10^6/uL (3.85-5.65); Red Cell Distribution Width 20.6 % (12.1-15.1); White Blood Count 21.13 10^3/uL (3.29-11.43)
[2024-09-05] MEDS: HYDROcodone-acetaminophen 5-325 mg Tablet 1 TAB PO ×3 (08:35→23:17)
[2024-09-05] MEDS: folic acid 1 mg Tablet PO (08:35)
[2024-09-05] MEDS: tamsulosin 0.4 mg Capsule PO ×2 (08:35→17:39)
[2024-09-05] MEDS: lisinopril 20 mg Tablet PO (08:35)
[2024-09-05] MEDS: levETIRAcetam 500 mg Tablet PO (08:35)
[2024-09-05] MEDS: gabapentin 300 mg Capsule 600 MG PO ×2 (08:35→17:39)
[2024-09-05] MEDS: finasteride 5 mg Tablet PO (08:35)
[2024-09-05] MEDS: thiamine 100 mg Tablet PO (08:35)
[2024-09-05] MEDS: multivitamin therapeutic Tablet 1 TAB PO (08:35)
[2024-09-05] MEDS: enoxaparin 40 mg/0.4 mL Syringe SUBCUT (08:36)
[2024-09-05 08:46] LABS: Alanine Aminotransferase 66 U/L (0-41); Albumin Level 2.9 g/dL (3.5-5.2); Alkaline Phosphatase 100 U/L (40-130); Anion Gap 17.1 (5-19); Aspartate Amino Transferase 66 U/L (0-40); Blood Urea Nitrogen 20 mg/dL (8-23); Calcium 8.4 mg/dL (8.5-10.5); Carbon Dioxide 26 mmol/L (22-29); Chloride 97 mmol/L (98-107); Creatinine Clr Calc Pharmacy 57.8111; Globulin 3.7 g/dL (1.3-4.6); Glucose 109 mg/dL (65-115); Osmolality Calculated 287 mOsm/kg (285-295); Potassium 3.1 mmol/L (3.5-5.1); Sodium 137 mmol/L (136-145); Total Bilirubin 0.5 mg/dL (0.15-1.2); Total Protein 6.6 g/dL (6.6-8.7)
[2024-09-05] MEDS: ibuprofen 200 mg Tablet 400 MG PO (10:56)
[2024-09-05] MEDS: VANCOMYCIN ADD-Vantage 1,000 MG in 0.9% NaCl ADD-Vantage 250 ML 250 MG IV ×2 (10:56→22:58)
[2024-09-05] MEDS: capsaicin 0.025% cream 60 gm 1 APPLIC TOPICAL (12:09)
--- NOTE | 2024-09-05 16:57 | P.PN_ITS ---
Subjective 2 Subjective: He has been coughing quite a bit and this has been causing him to have worsened arthritis pain in his legs, back, as well as hurting the site of his prior abdominal hernia surgery. He is requesting for more pain medication, increase in the dose of hydrocodone. Discussed with him risks of opioid medication, including tolerance, dependence, constipation, respiratory depression. Discussed with him holding a pillow to help minimize pain, pain control with acetaminophen, capsaicin, a dose of ibuprofen, plus minus possible lidocaine patch. Vitals/I&O/Wt Last Vital Signs Temp 98.2 F 09/05/24 15:49 Pulse 88 09/05/24 15:49 Resp 18 09/05/24 15:49 BP 144/78 09/05/24 15:49 Pulse Ox 92 09/05/24 15:49 O2 Del Method Room Air 09/05/24 15:49 09/05/24 09/05/24 09/05/24 06:59 14:59 22:59 Intake Total 700 / 2620 900 / 900 Output Total 400 / 400 Balance 700 / 2620 500 / 500 Weight last 48 hrs Weight 87.226 kg Weight 88.451 kg Physical Exam 2 Const: COMMON NORMALS: patient oriented x3 and alert GENERAL APPEARANCE: c ooperative ORIENTATION/CONSCIOUSNESS: Yes awake HENMT: COMMON NORMALS: oropharynx normal Neck/C-Spine: COMMON NORMALS: no JVD Resp: COMMON NORMALS: normal respiratory effort AUSCULTATION: rhonchi and wheezes Cardio: COMMON NORMALS: no JVD, regular rhythm, S1 normal heart sound present, S2 normal heart sound present and No murmurs present (Cardio) RHYTHM: regular rhythm HEART SOUNDS: S1 normal heart sound present and S2 normal heart sound present GI: COMMON NORMALS: Normal to inspection, nondistended, normoactive bowel sounds present, Soft to palpation and non-tender PALPATION: Yes Soft to palpation Extremity: COMMON NORMALS: no joint enlargement and no pedal edema Neuro: COMMON NORMALS: patient oriented x3 and moves all extremities S ENSORIUM/ORIENTATION: Yes alert Skin: COMMON NORMALS: no rashes or lesions noted GENERAL SKIN EXAM: no rashes or lesions noted Data 09/05/24 08:11 09/05/24 08:11 Micro: Microbiology 09/04/24 10:00 Blood Culture - Preliminary Blood NEGATIVE TO DATE 09/04/24 10:00 Blood Culture - Preliminary Blood NEGATIVE TO DATE A&P Assessment and plan (1) Pneumonia: Continues with significant cough, very bothersome to him, triggering pain from her arthritis and previous hernia repair, continue ibuprofen as needed for cough, continue antibiotic treatment, pending assessment with modified barium swallow, not likely able to do that today due to unavailable staff to perform the test, likely will have it tomorrow. Continue Zosyn, vancomycin, monitor for risk of kidney injury with antibiotic combination. Reassess blood counts. Noted persistent high leukocytosis 21, although did also receive Decadron dose. Reviewed CBC, reviewed sputum culture, bacteriology, so far unavailable. Blood cultures pending. Discussed with telehealth case manager, will benefit from home O2 assessment prior to discharge. Nursing. Nonresolving pneumonia. Treated for pneumonia after influenza A infection, also possible aspiration pneumonia earlier this month, but left AMA On 08/24, return to the hospital with shortness of breath, multilobar groundglass attenuation, tree-in-bud airspace disease, greatest in the right lung, may again suspect also aspiration. Again with alcohol intoxication, EtOH 105. Will need to monitor for withdrawal. Received Zosyn, Vanco with recent hospitalization continue these antibiotics for possible hospital-acquired pneumonia. Monitor for risk of kidney injury with antibiotic combination. Reassess kidney function. Collect sputum culture. Breathing treatments. Monitor oxygenation. (2) Intoxication: Send withdrawal symptoms last night, received Ativan. Continue to monitor CIWA protocol. Benzodiazepine protocol for withdrawal. Monitor for risk of respiratory depression. Alcohol use disorder, currently EtOH level elevated 105. Monitor for risk of withdrawal. Continue thiamine, folic acid, multivitamin. CIWA protocol with benzodiazepine. Continue to encourage alcohol cessation with him. He had previously been able to quit drinking for some time in the past. In the past did attend rehabilitation as well. Will request case management consultation to assist with rehab options. Plan Troponin elevation: Complete troponin and EKG series. Arthritis pain, pain at the site of his hernia with cough: Antitussive as needed. Added ibuprofen dose, capsaicin, continue acetaminophen as needed, hydrocodone as needed in case lack of response, discussed with him risk of opioid therapy. Smoking: He has cut down on smoking, but still smokes several cigarettes in a day. Encouraged smoke cessation, discussed vaccination with him for 3 and half minutes, he understands that he would benefit from quitting. Nicotine replacement as needed. BPH, continue tamsulosin, finasteride HTN, continue lisinopril GERD, continue PPI Chronic back pain: Acetaminophen as needed. Continue home hydrocodone as needed. PDMP PDMP Reviewed: Last Reviewed 09/04/24 13:11 by Mike Sun MD Attestations 2 Medical Necessity Statement*: Continue assessment and management of nonresolving/recurrent pneumonia, possible hospital-acquired pneumonia, possible suppression pneumonia, intermittent with alcohol intoxication, risk of alcohol withdrawal with recent hospitalization for treatment of pneumonia, alcohol withdrawal. and High MDM includes amount and/or complexity of data reviewed/ordered [ resulted lab(s)/test(s), ordered lab(s)/test(s) and other healthcare professional discussion] and described risk of complication, morbidity or mortality of management as documented Diagnoses Pneumonia J18.9 Intoxication
[2024-09-06] VITALS (8 sets, daily range): BP systolic 146–182; BP diastolic 73–97; PULSE 85–98; RESP 18–26; TEMP 36.4–36.6; O2SAT 95–97
[2024-09-06] MEDS: LORazepam 2 mg/mL INJ 1 mL IVP (01:05)
[2024-09-06] MEDS: piperacillin-tazobactam 3.375 GM in sodium chloride 0.9% (plus) 50 ML IV ×2 (01:35→10:04)
[2024-09-06] MEDS: guaiFENesin-dextromethorphan UDC 10 mL 20 ML PO ×2 (02:41→10:08)
[2024-09-06] MEDS: ipratropium-albuterol 3 mL Neb INHALATION ×2 (03:27→08:36)
[2024-09-06] MEDS: pantoprazole DR 40 mg Tablet PO (04:47)
[2024-09-06] MEDS: HYDROcodone-acetaminophen 5-325 mg Tablet 1 TAB PO (04:47)
[2024-09-06 05:32] LABS: Alanine Aminotransferase 62 U/L (0-41); Albumin Level 2.7 g/dL (3.5-5.2); Alkaline Phosphatase 77 U/L (40-130); Blood Urea Nitrogen 21 mg/dL (8-23); Calcium 8.3 mg/dL (8.5-10.5); Carbon Dioxide 27 mmol/L (22-29); Chloride 102 mmol/L (98-107); Creatinine Clr Calc Pharmacy 53.6109; Globulin 3.4 g/dL (1.3-4.6); Glucose 105 mg/dL (65-115); Osmolality Calculated 297 mOsm/kg (285-295); Sodium 142 mmol/L (136-145); Total Bilirubin 0.5 mg/dL (0.15-1.2); Total Protein 6.1 g/dL (6.6-8.7)
[2024-09-06 05:43] LABS: Aspartate Amino Transferase 62 U/L (0-40)
[2024-09-06 07:26] LABS: Basophils % 0.2 %; Eosinophils # 0.2 10^3/uL (0.0-0.8); Eosinophils % 1.2 %; Hematocrit 35.2 % (37-53); Lymphocytes # 2.8 10^3/uL (0.8-4.8); Lymphocytes % 20.9 %; Mean Corpuscular HGB Conc 29.8 g/dL (30-55); Mean Corpuscular Hemoglobin 26.7 pg (27-33); Mean Corpuscular Volume 89.6 fl (82-101); Mean Platelet Volume 9.7 fL (7.4-10.4); Monocytes # 0.8 10^3/uL (0.2-0.9); Monocytes % 5.7 %; Neutrophils % 70.4 %; Nucleated Red Blood Cells % 0 %; Platelet Count 262 10^3/cmm (157-399); Red Blood Count 3.93 10^6/uL (3.85-5.65); Red Cell Distribution Width 20.8 % (12.1-15.1); White Blood Count 13.49 10^3/uL (3.29-11.43)
[2024-09-06 09:24] LABS: Vancomycin Trough 12.7 ug/mL (10-15)
[2024-09-06] MEDS: LORazepam 2 mg Tablet PO (10:02)
[2024-09-06] MEDS: lisinopril 20 mg Tablet PO (10:02)
[2024-09-06] MEDS: thiamine 100 mg Tablet PO (10:02)
[2024-09-06] MEDS: folic acid 1 mg Tablet PO (10:02)
[2024-09-06] MEDS: potassium chloride ER 20 mEq Tablet 40 MEQ PO (10:03)
[2024-09-06] MEDS: finasteride 5 mg Tablet PO (10:03)
[2024-09-06] MEDS: tamsulosin 0.4 mg Capsule PO (10:03)
[2024-09-06] MEDS: levETIRAcetam 500 mg Tablet PO (10:03)
[2024-09-06] MEDS: multivitamin therapeutic Tablet 1 TAB PO (10:03)
[2024-09-06] MEDS: enoxaparin 40 mg/0.4 mL Syringe SUBCUT (10:04)
[2024-09-06] MEDS: gabapentin 300 mg Capsule 600 MG PO (10:04)
[2024-09-06] MEDS: VANCOMYCIN ADD-Vantage 1,000 MG in 0.9% NaCl ADD-Vantage 250 ML 250 MG IV (10:05)
[2024-09-06 10:58] LABS: C.Diff PCR (Lab) NEGATIVE (Negative)
--- NOTE | 2024-09-06 11:41 | P.DS_ITS ---
Discharge Providers Date of Admission: 09/04/24 10:18 Date of Discharge: September 06, 2024 Attending Provider at Admission: Mike Sun Attending Provider at Discharge: Mike Sun Primary Care Provider: Howard Kelly DO Diagnoses at Discharge Discharge Diagnosis (1) Pneumonia: Status: Acute (2) Intoxication: Status: Acute Reason for Visit Reason for Visit: sob Brief History: Pleasant 73-year-old gentleman with history of alcohol use disorder, alcohol withdrawal, BPH, HTN, GERD, chronic back pain, recently hospitalized 08/23-08/24 for assessment of management of pneumonia after influenza A infection, suspected aspiration pneumonia, as well as alcohol withdrawal, he was treated with IV antibiotics, Tamiflu, IV fluids, oxygen support, he left the hospitalization AGAINST MEDICAL ADVICE. He returns to the hospital today due to persistent shortness of breath, cough, having some upper abdominal discomfort with cough, dyspnea, dyspnea with exertion. In ER with leukocytosis 13.24, mild transaminitis 42, 55 AST and ALT respectively, normal T. bili and alk phos. Mild troponin elevation 59, 49 2 hours. EtOH 105. Chest x-ray without acute cardiopulmonary finding. D-dimer abnormal 1.21, CTA chest with new multilobar areas of groundglass continuation and tree-in-bud airspace disease, greatest throughout the right lung consistent with acute endobronchial pneumonia or pneumonitis. Suspected since 2021, possible chronic interstitial pulmonary fibrosis, honeycombing. Recommended follow-up chest CT after acute process resolved. Hospital Course Hospital Course He was hospitalized and treated with IV antibiotic for pneumonia after acute influenza infection, possible aspiration pneumonia. Oxygenation monitored, did not require oxygen during hospital stay. With bothersome productive cough, treated with antitussive, cough has been bothersome to his abdominal hernia as well, encouraged antitussive, other measures including hugging a pillow. His rhonchi are showing resolution. He is having mild wheezing and with bronchial component will complete a course of prednisone alongside antibiotic. With possible severe pneumonia, aspiration precautions are encouraged. Modified barium swallow was obtained, no aspiration observed, mild penetration when ingesting thin liquids. Discussed with him results of stool study over the phone, discussed with him prescription of antibiotic, steroid and revisited aspiration precautions. With development of possible pulmonary fibrosis, and,, possibly secondary to rec urrent aspiration, perhaps related to alcohol use disorder, please revisit with him, upon recovery from acute illness please reassess and refer for pulmonary function testing, pulmonology follow-up. During hospitalization also monitored for alcohol withdrawal with additional intoxication, encouraged with regards to alcohol cessation, and informational materials for rehabilitation requested with case management. He stated he had previously attended rehabilitation. Continue to revisit and encourage cessation. A few episodes of loose stools during hospitalization, tested for C. difficile and negative. Physical Exam Const: COMMON NORMALS: patient oriented x3 and alert GENERAL APPEARANCE: cooperative ORIENTATION/CONSCIOUSNESS: Yes awake HENMT: COMMON NORMALS: oropharynx normal Neck/C-Spine: COMMON NORMALS: no JVD Resp: COMMON NORMALS: normal respiratory effort AUSCULTATION: no rhonchi and wheezes (Improved, with minimal wheeze) Cardio: COMMON NORMALS: no JVD, regular rhythm, S1 normal heart sound present, S2 normal heart sound present and No murmurs present (Cardio) RHYTHM: regular rhythm HEART SOUNDS: S1 normal heart sound present and S2 normal heart sound present GI: COMMON NORMALS: Normal to inspection, nondistended, normoactive bowel sounds present, Soft to palpation and non-tender PALPATION: Yes Soft to palpation Extremity: COMMON NORMALS: no joint enlargement and no pedal edema Neuro: COMMON NORMALS: patient oriented x3 and moves all extremities SENSORIUM/ORIENTATION: Yes alert Skin: COMMON NORMALS: no rashes or lesions noted GENERAL SKIN EXAM: no rashes or lesions noted Discharge Data Studies Completed and Pending Completed Studies During Hospitalization Category Date Time Status CT angio chest PE protcl [id number] Stat Cat Scan 09/04/24 08:29 Completed XR chest 1V portable [id number] Stat Exams 09/04/24 06:50 Completed Pending at discharge Category Date Time Status FL barium swallow modifd [id number] Routine Exams 09/06/24 16:23 Ordered Blood Culture Stat Lab 09/04/24 10:00 Results Complete Blood Count w/Auto AM LABS Lab 09/07/24 04:00 Ordered Complete Blood Count w/Auto AM LABS Lab 09/08/24 04:00 Ordered Comprehensive Metabolic Panel AM LABS Lab 09/07/24 04:00 Ordered Comprehensive Metabolic Panel AM LABS Lab 09/08/24 04:00 Ordered Sputum Culture and Gram Stain Routine Lab 09/04/24 16:23 Uncollected Radiology Impressions Chest X-Ray 09/04/24 06:50 IMPRESSION: 1. No acute cardiopulmonary finding. Chest CTA 09/04/24 08:29 IMPRESSION: 1. No pulmonary embolism. 2. No RIGHT heart strain. 3. Mild atherosclerosis aorta. 4. New, multilobar areas of groundglass attenuation and tree-in-bud airspace disease, greatest throughout the RIGHT lung consistent with acute endobronchial pneumonia or pneumonitis. 5. Suspect since 2021 there may be development of chronic interstitial pulmonary fibrosis as there is honeycombing developing. After this acute pulmonary process has resolved a follow-up chest CT will help to determine if there is a more chronic progressive disease. Laboratory Results WBC 13.49 10^3/uL (3.29-11.43) H 09/06/24 06:52 Corrected WBC Cancelled 09/06/24 04:27 RBC 3.93 10^6/uL (3.85-5.65) 09/06/24 06:52 Hgb 10.50 g/dL (11.27-16.99) L 09/06/24 06:52 Hct 35.2 % (37-53) L 09/06/24 06:52 MCV 89.6 fl (82-101) 09/06/24 06:52 MCH 26.7 pg (27-33) L 09/06/24 06:52 MCHC 29.8 g/dL (30-55) L 09/06/24 06:52 RDW 20.8 % (12.1-15.1) H 09/06/24 06:52 Plt Count 262 10^3/cmm (157-399) 09/06/24 06:52 MPV 9.7 fL (7.4-10.4) 09/06/24 06:52 Gran % Cancelled 09/06/24 04:27 Neut % (Auto) 70.4 % 09/06/24 06:52 Lymph % (Auto) 20.9 % 09/06/24 06:52 Davidson % (Auto) 5.7 % 09/06/24 06:52 Eos % (Auto) 1.2 % 09/06/24 06:52 Baso % (Auto) 0.2 % 09/06/24 06:52 Neut # (Auto) 9.50 10^3/uL (1.8-7.7) H 09/06/24 06:52 Lymph # (Auto) 2.8 10^3/uL (0.8-4.8) 09/06/24 06:52 Davidson # (Auto) 0.8 10^3/uL (0.2-0.9) 09/06/24 06:52 Eos # (Auto) 0.2 10^3/uL (0.0-0.8) 09/06/24 06:52 Baso # (Auto) 0.0 10^3/uL (0.0-0.1) 09/06/24 06:52 Absolute Gran (auto) Cancelled 09/06/24 04:27 Nucleated RBC % (auto) 0 % 09/06/24 06:52 Nucleated RBCs # 0.0 /100WBC 09/06/24 06:52 D-Dimer 1.21 ug/mLFEU (0-0.59) H 09/04/24 06:47 Specimen Type Arterial 09/04/24 07:01 Sample Site Radial, left 09/04/24 07:01 ABG pH 7.49 (7.35-7.45) H 09/04/24 07:01 ABG pCO2 39.3 mmHg (35-45) 09/04/24 07:01 ABG pO2 58.6 mmHg (80.0-100.0) L 09/04/24 07:01 ABG PO2/FiO2 Ratio 279 09/04/24 07:01 ABG HCO3 30.2 mmol/L (22-26) H 09/04/24 07:01 ABG O2 Saturation 89.5 09/04/24 07:01 ABG Base Excess 6.4 mmol/L (-2.0-2.0) H 09/04/24 07:01 Kevin Test Pos 09/04/24 07:01 A-a O2 Gradient 5.7 mmHg (5-10) 09/04/24 07:01 Hematocrit 40.1 % (42-52) L 09/04/24 07:01 Hgb O2 Saturation 87.6 % (95-100) L 09/04/24 07:01 Carboxyhemoglobin 1.2 %THgb (0.4-20.1) 09/04/24 07:01 Methemoglobin 0.9 % (0.4-1.5) 09/04/24 07:01 Total Hemoglobin 13.1 g/dL (14-18) L 09/04/24 07:01 Sodium 142.0 mmol/L (131-143) 09/04/24 07:01 Potassium 2.4 mmol/L (3.5-5.0) L 09/04/24 07:01 Glucose 129.0 mg/dL (70-115) H 09/04/24 07:01 Ionized Calcium 1.1 mmol/L (1.1-1.4) 09/04/24 07:01 O2 Delivery Device Room air 09/04/24 07:01 FiO2 21.0 % 09/04/24 07:01 Food And Beverage Intern ID [place] 09/04/24 07:01 Sodium 142 mmol/L (136-145) 09/06/24 04:27 Potassium 3.0 mmol/L (3.5-5.1) L 09/06/24 04:27 Chloride 102 mmol/L (98-107) 09/06/24 04:27 Carbon Dioxide 27 mmol/L (22-29) 09/06/24 04:27 Anion Gap 16.0 (5-19) 09/06/24 04:27 BUN 21 mg/dL (8-23) 09/06/24 04:27 Creatinine 1.3 mg/dL (0.7-1.2) H 09/06/24 04:27 GFR Calculation Not Reportable 09/06/24 04:27 Glucose 105 mg/dL (65-115) 09/06/24 04:27 Calculated Osmolality 297 mOsm/kg (285-295) H 09/06/24 04:27 Calcium 8.3 mg/dL (8.5-10.5) L 09/06/24 04:27 Total Bilirubin 0.5 mg/dL (0.15-1.2) 09/06/24 04:27 AST 62 U/L (0-40) H 09/06/24 04:27 ALT 62 U/L (0-41) H 09/06/24 04:27 Alkaline Phosphatase 77 U/L (40-130) 09/06/24 04:27 Troponin T Baseline 59 ng/L (0-15) H 09/04/24 06:47 Troponin T 120 Minute 49.04 ng/L (0-15) H 09/04/24 09:05 Delta Troponin T -9.96 ABS# (0-10) L 09/04/24 09:05 Troponin T Hi Sens 6Hr 40.64 ng/L (0-15) H 09/04/24 13:03 Troponin T Hi Sens 6Hr Delta -18.36 ng/L (0-12) L 09/04/24 13:03 Total Protein 6.1 g/dL (6.6-8.7) L 09/06/24 04:27 Albumin 2.7 g/dL (3.5-5.2) L 09/06/24 04:27 Globulin 3.4 g/dL (1.3-4.6) 09/06/24 04:27 Vancomycin Trough 12.7 ug/mL (10-15) 09/06/24 08:48 Ethyl Alcohol 105 mg/dL (0-10) H 09/04/24 06:47 C. difficile (PCR) Negative (Negative) 09/06/24 08:20 Influenza A (PCR) Negative (Negative) 09/04/24 07:07 Influenza Type B (PCR) Negative (Negative) 09/04/24 07:07 RSV (PCR) Negative (Negative) 09/04/24 07:07 SARS-CoV-2 (PCR) Negative (Negative) 09/04/24 07:07 Vitals Last Vital Signs Temp 97.8 F 09/06/24 07:38 Pulse 92 09/06/24 08:42 Resp 20 H 09/06/24 08:42 BP 164/97 09/06/24 07:38 Pulse Ox 97 09/06/24 08:42 O2 Del Method Room Air 09/06/24 08:42 Discharge Plan Discharge Patient Disposition: Home Condition: Stable Prescriptions: New folic acid 1 mg Tablet 1 mg PO DAILY Qty: 90 0RF thiamine mononitrate (vit B1) [Vitamin B-1 (mononitrate)] 100 mg Tablet 100 mg PO DAILY Qty: 90 0RF multivitamin with folic acid [Thera] 400 mcg Tablet 1 tab PO DAILY Qty: 90 0RF amoxicillin-pot clavulanate 875-125 mg tablet 1 tab PO BID Qty: 10 0RF prednisone 20 mg tablet 40 mg PO DAILY 3 Days Qty: 6 0RF loperamide 2 mg capsule 2 mg PO Q6H PRN (Reason: loose stool) Qty: 30 0RF Continued venlafaxine 75 mg capsule,extended release 24hr 75 mg PO DAILY gabapentin 600 mg tablet 600 mg PO BID levetiracetam 500 mg tablet 500 mg PO DAILY lisinopril 20 mg tablet 20 mg PO DAILY omeprazole 40 mg capsule,delayed release(DR/EC) 40 mg PO QAM tamsulosin 0.4 mg capsule 0.4 mg PO BID trazodone 150 mg tablet 150 mg PO BEDTIME furosemide 20 mg tablet 20 mg PO DAILY testosterone cypionate 200 mg/mL oil 200 mg IM Q30D albuterol sulfate 90 mcg/actuation HFA aerosol inhaler 2 puff INHALATION Q4H PRN (Reason: Shortness Of Breath) finasteride 5 mg tablet 5 mg PO DAILY Trelegy Ellipta 100-62.5-25 mcg blister with device 1 inh INHALATION DAILY nystatin 100,000 unit/mL suspension 5 ml PO QID albuterol sulfate 2.5 mg /3 mL (0.083 %) solution for nebulization 2.5 mg inhalation Q4H loperamide 2 mg capsule 4 mg PO Q4H hydrocodone-acetaminophen 5-325 mg tablet 1 tab PO TID ondansetron 8 mg tablet,disintegrating 8 mg PO TID prednisone 20 mg tablet 40 mg PO DAILY Qty: 10 0RF Discontinued diclofenac sodium 50 mg tablet,delayed release (DR/EC) 50 mg PO BID Discharge Orders: Discharge Order (Routine); Ordered 09/06/24 Ordered By: Mike Sun Referrals: Howard Kelly DO [Primary Care Provider] - 09/12/24 8:10 am Discharge Diet: As Directed and Cardiac Discharge Activity: Increase activity as tolerated and Oxygen as instructed Patient Instructions: Thiamine (By mouth), Folic Acid (By mouth), Multivitamins, Adult Formula (By mouth), Pneumonia (DC), Opioid Safety Activity Restrictions/Additional Instructions: Continue to use nebulizer at home and complete antibiotic at steroid course. Maintain strict aspiration precautions. Do not eat or drink if reclined or not fully awake alert. Avoid any alcohol. Seek outpatient rehabilitation. Follow-up with your primary doctor for reassessment of recovery after pneumonia, possible aspiration pneumonia, p ossible recurrent aspiration with development of some suspected interstitial pulmonary fibrosis. After recovering from the acute pneumonia please have your primary doctor refer you for pulmonary function testing and pulmonology assessment. Discharge Attestations Time Spent in Discharge Care*: greater than 30 min Status at Discharge: Cognitive status at discharge: mildly impaired cognition , Behavioral status at discharge: cooperative and can be uncooperative , Quality Metrics Clinical Quality Measures [ No reported AMI, CVA or VTE this stay] Coding Level of Care Code 69897 Total time (in minutes) for Discharge: 45 Diagnoses Pneumonia J18.9 Intoxication
--- NOTE | 2024-09-06 13:47 | PC.NURSE ---
Reviewed discharge with patient and caregiver at this time. Patient asked what is he giving me for pain? This nurse explained that the doctor was not sending anything for the patient's chronic pain, he could contuine his home medications for pain and follow up with his primary care doctor. Patient refused to stay for a home oxygen evaluation. Patient demanded to go home but is requesting to get Hydrocodone and Ativan for pain at home. Patient is alert and orientated on room air.
--- NOTE | 2024-09-06 16:23 | FL_ITS ---
WS: [id number] Exam: FL barium swallow modifd [id number] Date/Time of Exam: 09/06/2024 11:52 AM Reason For Exam: Oropharyngeal dysphagia Fluoroscopy time: minutes # of spot films: 0 Modified barium swallow test was performed in conjunction with the speech therapy service. Mild to moderate alteration in oropharyngeal phase of swallowing. The patient experienced minimal penetration into the laryngeal inlet when ingesting thin liquid barium. The patient tolerated the remaining barium mixture foodstuffs without penetration or aspiration. The patient ingested a barium tablet which passed into the stomach without difficulty. FL/FL barium swallow modifd [id number] IMPRESSION: 1. Altered oral pharyngeal phase of swallowing. 2. Mild penetration when ingesting thin liquid barium. 3. No aspiration was observed. A separate report and recommendations will follow from the speech therapy servi ce.
== END 2024-09-06 13:49 | disposition home or self-care (01) | DRG 179 ==
LOC: ER 06:52 → ER IP 10:19 → MEDSURG 16:07
PROVIDERS: Admitting Provider Internal Medicine; Emergency Provider Family Medicine; PCP Electrodiagnostic Medicine; Visit Provider Internal Medicine
DX: J69.0 Pneumonitis due to inhalation of food and vomit (principal); J84.10 Pulmonary fibrosis, unspecified; F10.129 Alcohol abuse with intoxication, unspecified; Y90.5 Blood alcohol level of 100-119 mg/100 ml; N40.0 Benign prostatic hyperplasia without lower urinary tract symptoms; I10 Essential (primary) hypertension; K21.9 Gastro-esophageal reflux disease without esophagitis; R74.01 Elevation of levels of liver transaminase levels; R79.89 Other specified abnormal findings of blood chemistry; F17.210 Nicotine dependence, cigarettes, uncomplicated; F32.A Depression, unspecified; F41.9 Anxiety disorder, unspecified
CPT/HCPCS: 36415; 36600; 71045; 71275; 74230; 80051; 80053; 80202; 80307; 82330; 82805; 84484; 85025; 85378; 86403; 87040; 87449; 87493; 87637; 92611; 93005; 94640; 96365; 96367; 96372; 96375; 99285; J0360; J1100; J1650; J1885; J2060; J2543; J3370; J3411; J3490; J7050

== ENCOUNTER 2025-05-26 13:07 | Inpatient (IN) | payer MEDICARE, MEDICAID, SELFPAY ==
[2025-05-26] VITALS (69 sets, daily range): BP systolic 70–159; BP diastolic 44–111; PULSE 65–170; RESP 14–30; TEMP 36.7; O2SAT 86–98; BMI 27.6
--- OUTSIDE RECORDS SUMMARY | 2025-05-26 13:10 | XMS_ITS | Clinical Summary ---
Author Organization [employer] [facility] Address [address] Attn: Epic Prelude ADT [place] [address] Care Team Providers Care Electrocardiographic Technician Name Role Phone Fabian Duran MD, Randal Jeter Primary Care Provider Allergies No known active allergies Medications magnesium hydroxide (MILK OF MAGNESIA) 400 mg/5 mL suspension Take 30 mL by mouth 1 time daily as needed for Constipation . 09/24/2019 Active cloNIDine HCL (CATAPRES) 0.1 mg tablet Take 1 Tablet (0.1 mg) by mouth 2 times daily. 60 Tablet 0 10/03/2019 Active gabapentin (NEURONTIN) 300 mg capsule Take 1 Capsule (300 mg) by mouth 2 times daily. 60 Capsule 1 10/03/2019 Active sennosides-docu sate sodium (SENNA-S) 8.6-50 mg tablet Take 1 Tablet by mouth daily. 10/04/2019 Active cholecalciferol , vitamin D3, 1,000 unit Take 2 Tablets (2,000 Units) by mouth daily. 10/04/2019 Active levETIRAcetam (KEPPRA) 500 mg tablet Take 1 Tablet (500 mg) by mouth 2 times daily. 60 Tablet 1 10/03/2019 Active metoprolol succinate (TOPROL XL) 50 mg Extended Release 24 hour tablet Take 1 Tablet (50 mg) by mouth daily. 30 Tablet 1 10/03/2019 Active melatonin 10 mg Tablet Take 1 Tablet (10 mg) by mouth daily at bedtime. 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 Benign hypertension 09/12/2019 Alcoholism 08/31/2019 SDH (subdural hematoma)- bilat chronic 0 Alcohol dependence with uncomplicated withdrawal Subdural hematoma Adjustment disorder with depressed mood Social History Tobacco Use Types Packs/Day Years Used Date Smoking Tobacco: Every Day Cigarettes Alcohol Use Standard Drinks/Week Comments Yes 0 (1 standard drink = 0.6 oz pur e alcohol) Sex and Gender Information Value Date Recorded Sex Assigned at Not on file 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 Gender Identity Not on file Sexual Orientation Not on file Last Filed Vital Signs Vital Sign Reading Time Taken Comments Blood Pressure 134/68 10/04/2019 8:28 AM CDT Pulse 67 10/04/2019 2:00 AM CDT Temperature 36.6 C (97.8 F) 10/04/2019 2:00 AM CDT Respiratory Rate 18 10/04/2019 2:00 AM CDT Oxygen Saturation - - Inhaled Oxygen Concentration - - Weight 81.6 kg (180 lb) 10/03/2019 2:00 AM CDT Height 175.3 cm (5' 9 ) 09/24/2019 7:15 PM CDT Body Mass Index 26.58 09/24/2019 7:15 PM CDT Plan of Treatment Health Maintenance Due Date Last Done Comments DTAP/TDAP/TD VACCINES (1 - Tdap) 1969 PNEUMOCOCCAL VACCINE 50+ YEARS (1 of 2 - PCV) 11/07/18 70 COLORECTAL SCREENING 11/08/1995 Colorectal Cancer Screening 11/08/1995 FIT-DNA Q 3 years 11/08/1995 FIT/FOBT Q 1 year 11/08/1995 Flex Sig/CT Colonography Q 5 years 11/08/1995 ZOSTER VACCINE (1 of 2) 2000 INFLUENZA VACCINE (#1) 2025 RSV VACCINE (60+ or ) (1 - 1-dose 75+ series) 2025 Advance Directives For more information, please contact: [phone] Documents on File Type Date Recorded Patient Drug Abuse Counselor Expl anation Advance Directive POA 09/24/2019 1:49 PM Ad kong Directive POA Advance Directive Living Will 09/24/2019 1:45 PM Advance Directive Living Will Care Teams Electrocardiographic Technician Relationship Specialty Start Date End Date Randal Peralta Jr., MD [address] [place] [address] PCP - General Family Practice 08/31/19
--- OUTSIDE RECORDS SUMMARY | 2025-05-26 13:10 | XMS_ITS | Encounter Summary ---
Author Organization [facility] Address [address] [place] [address] Care Team Providers Care Engineering Program Manager Name Role Phone Fabian Duran MD, Randal Jeter Primary Care Provider Reason for Visit * Reason Comments Medication Refill Encounter Details Date Type Department Care Team (Late st Contact Info) Description 11/23/2019 Refill [facility] [place] [address] [place] [address] Leo Monroy MD [address] [place] [address] Social History Tobacco Use Types Packs/Day Years Used Date Smoking Tobacco: Every Day Cigarettes Alcohol Use Standard Drinks/Week Comments Yes 0 (1 standard drink = 0.6 oz pur e alcohol) Sex and Gender Information Value Date Recorded Sex Assigned at Not on file 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 No / Unsure 11/20/2019 1:57 PM CDT documented as of this encounter Miscellaneous Notes * Telephone Encounter - Isabel Thurston CMA - 11/26/2019 7:37 AM CDT PMR physicians only provide refills on medications while the patient is admitted to the rehab hospital. They do not refill medication after discharge. Referring this refill to PCP. documented in this encounter Plan of Treatment Not on file documented as of this encounter Visit Diagnoses Not on filedocumented in this encounter Care Teams Engineering Program Manager Relationship Specialty Start Date End Date Randal Peralta Jr., MD [address] [place] [address] PCP - General Family Practice 08/31/19 documented as of this encounter
--- OUTSIDE RECORDS SUMMARY | 2025-05-26 13:10 | XMS_ITS | Clinical Summary ---
Author Organization [facility] Address [address] [place] [address] Phone Care Team Providers Care Licensed Nursing Assistant Name Role Phone Fabian Duran MD, Randal Jeter Primary Care Provider Allergies No known active allergies Medications magnesium hydroxide (MILK OF MAGNESIA) 400 mg/5 mL suspension Take 30 mL by mouth 1 time daily as needed for Constipation . 09/24/2019 Active cholecalciferol , vitamin D3, 1,000 unit Take 2 Tablets (2,000 Units) by mouth daily. 10/04/2019 Active cloNIDine HCL (CATAPRES) 0.1 mg tablet Take 1 Tablet (0.1 mg) by mouth 2 times daily. 60 Tablet 10/03/2019 Active gabapentin (NEURONTIN) 300 mg capsule Take 1 Capsule (300 mg) by mouth 2 times daily. 60 Capsule 1 10/03/2019 Active levETIRAcetam (KEPPRA) 500 mg tablet Take 1 Tablet (500 mg) by mouth 2 times daily. 60 Tablet 1 10/03/2019 Active melatonin 10 mg Tablet Take 1 Tablet (10 mg) by mouth daily at bedtime. 10/03/2019 Active metoprolol succinate (TOPROL XL) 50 mg Extended Release 24 hour tablet Take 1 Tablet (50 mg) by mouth daily. 30 Tablet 1 10/03/2019 Active sennosides-docu sate sodium (SENNA-S) 8.6-50 mg tablet Take 1 Tablet by mouth daily. 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 Benign hypertension 09/12/2019 SDH (subdural hematoma)- bilat chronic 0 Alcoholism 08/31/2019 Alcohol dependence with uncomplicated withdrawal Subdural hematoma Adjustment disorder with depressed mood Social History Tobacco Use Types Packs/Day Years Used Date Smoking Tobacco: Every Day Cigarettes Alcohol Use Standard Drinks/Week Comments Yes 0 (1 standard drink = 0.6 oz pur e alcohol) Sex and Gender Information Value Date Recorded Sex Assigned at Not on file 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 Gender Identity Not on file Sexual Orientation Not on file Last Filed Vital Signs Vital Sign Reading Time Taken Comments Blood Pressure 134/68 10/04/2019 8:28 AM CDT Pulse 67 10/04/2019 2:00 AM CDT Temperature 36.6 C (97.8 F) 10/04/2019 2:00 AM CDT Respiratory Rate 18 10/04/2019 2:00 AM CDT Oxygen Saturation 94% 10/04/2019 2:00 AM CDT Inhaled Oxygen Concentration - - Weight 81.6 [...] ) (1 - 1-dose 75+ series) 2025 Insurance MEDICAID [place] MEDICARE PART A AND B MEDICARE PART A [place] B [place]ID [place] Advance Directives For more information, please contact: [phone] Documents on File Type Date Recorded Patient Senior Operations Analyst Expl anation Advance Directive POA 09/21/2019 3:06 PM Ad kong Directive POA Advance Directive Living Will 09/21/2019 3:06 PM Advance Directive Living Will * Full Code (Latest Code Status on File) Date Activated Date Inactivated Comments 09/24/2019 7:04 PM 10/04/2019 2:08 PM * Full Code Date Activated Date Inactivated Comments 09/08/2019 2:49 PM 09/24/2019 6:57 PM Care Teams Licensed Nursing Assistant Relationship Specialty Start Date End Date Randal Peralta Jr., MD [address] [place] [id number] PCP - General Family Practice 08/31/19
--- NOTE | 2025-05-26 13:11 | XRR_ITS ---
PROCEDURE INFORMATION: Exam: XR Chest Exam date and time: 05/26/2025 1:34 PM Age: 74 years old Clinical indication: Pain; Chest pressure; Additional info: Chest pain; Hypotension; Vomiting blood TECHNIQUE: Imaging protocol: Radiologic exam of the chest. Views: 1 view. COMPARISON: CT angio chest PE protcl [id number] 09/04/2024 8:37 AM FINDINGS: Lungs: Curvilinear bilateral opacities that can be seen with emphysematous change. Pleural spaces: No pleural effusion. No pneumothorax. Heart/Mediastinum: Cardiomegaly. High density mediastinal widening. Bones/joints: Unremarkable. XR/XR chest 1V portable [id number] IMPRESSION: 1. High density mediastinal widening, indeterminate on radiograph. Consider CTA of the chest for characterization of the mediastinal vasculature. 2. Emphysematous lung changes. 3. Cardiomegaly.
--- NOTE | 2025-05-26 13:11 | ECG_ITS ---
[employer] [employer] Test Date: 2025-05-26 Pat Name: Julio Mccann Department: Room: Gender: Male [employer] Operator: : 1950 Requested By: Mark Anthony Garcia Order Number: [id number] Eric MD: Mg Wilson M.D. Measurements Intervals [place] Rate: 111 P: 0 CT: 0 QRS: 38 QRSD: 100 T: -23 QT: 377 QTc: 514 Interpretive Statements ATRIAL FIBRILLATION WITH RAPID VENTRICULAR RESPONSE NONSPECIFIC ST & T-WAVE ABNORMALITY Compared to ECG 09/04/2024 12:28:23 Sinus rhythm no longer present T-wave abnormality still present Electronically Signed On 05-26-2025 20:10:46 [employer] by Mg Wilson M.[email or web address]
--- OUTSIDE RECORDS SUMMARY | 2025-05-26 13:11 | XMS_ITS | Data Portability ---
Author Organization [facility], [facility] Address [address] [facility] [address] [place] [address] Care Team Providers Care Division Order Analyst Name Role Phone HAIR SMITH Primary Care Provider [phone] Assessment Encounter Date Assessment Date Assessment LastModified by Organization Details LastModified Time 03/14/2024 03/14/2024 Document scribed by Wilbert Lynibe. I was present during interview and exam. I have reviewed and agree with above documentation. Dr. Hair Smith. [email or web address] Not available 03/14/2024 09:33:49 06/27/2024 06/27/2024 Document scribed by Wilbert Lyn. I was present during interview and exam. I have reviewed and agree with above documentation. Dr. Hair Smith. [email or web address] Not available 06/27/2024 11:05:28 08/08/2024 08/08/2024 Document scribed by Wilbert Lyn Scribe. I was present during interview and exam. I have reviewed and agree with above documentation. Dr. Hair Smith. [email or web address] Not available 08/08/2024 08:17:43 08/28/2024 08/28/2024 Document scribed by Wilbert Lyn. I was present during interview and exam. I have reviewed and agree with above documentation. Dr. Hair Smith. [email or web address] Not available 08/28/2024 12:00:27 10/15/2024 10/15/2024 A Care Coordination Assessment form was filled out as part of this patient's office visit today. [email or web address] Not available 12/19/2024 08:16:10 Plan of Treatment Reminders Order Date Submit Date Provider Last Modified By Organization Details Last Modified Time Details Appointments None recorded. Lab vitamin D, 25-hydroxy, total, serum 2024 025 [facility], [address] [place] [address] [address], [address], [place], [address], 07:15:47 vitamin B12 + folate, serum or blood 2024 025 [facility], [address] [place] [address] [address], [address], [place], [address], 07:15:46 CMP, serum or plasma 2024 025 [place] [facility], [address], [address], [place], [address], 12:44:38 lipid panel, blood 2024 025 [place] [facility], [address], [address], [place], [address], 5 12:45:44 CBC 2024 025 [place] [facility], [address], [address], [place], [address], 12:44:42 testosteron e, total, serum 2024 025 [facility], [address] [place] [address] [address], [address], [place], [address], 11:09:10 vitamin D, 25-hydroxy, total, serum 2024 025 [facility], [address] [place] [address] 248, [address], [place], [address], 5 11:09:13 vitamin B12 + folate, serum or blood 2024 025 [employer] [facility], [address] [facility] [address], [address], [place], [address], 5 11:09:11 vitamin D, 25-hydroxy, total, serum 2023 024 [employer] [facility], [address] [facility] [address], [address], [place], [address], 4 05:19:23 vitamin B12 + folate, serum or blood 2023 024 [employer] [facility], [address] [facility] [address], [address], [place], [address], 4 05:19:22 Referral None recorded. Procedures None recorded. Surgeries None recorded. Imaging XR, lumbosacral spine, 2 or 3 view 2024 025 [email or web address] 2 [facility], [address] [place], [address], 5 10:06:47 electrocard iogram 2024 025 [facility] ([facility]), [address] [place], [address], 5 11:04:26 XR, chest, 2 view 2024 025 [facility] ([facility]), [address] [place], [address], 5 11:04:26 Medication Orders prednisone 20 mg tablet 2024 025 [facility] [place], [address] [place], [address], 5 17:52:47 hydrocodone 5 mg-acetamin ophen 325 mg tablet [address], [address], 5 17:52:47 nystatin 100,000 unit/mL oral suspension [address], [address], 5 17:02:26 ondansetron 8 mg disintegrat ing tablet [address], [address], 5 17:02:25 Imodium A-D 2 mg tablet [email or web address] [place] [address], [address], 5 13:33:27 albuterol sulfate 2.5 mg/3 mL (0.083 %) solution for nebulizatio n 2024 025 [facility], [address] [place] [address], [address], 5 14:05:47 prednisone 20 mg tablet 2024 025 [facility], [address] [place] [address], [address], 5 17:02:24 hydrocodone 5 mg-acetamin ophen 325 mg tablet 2024 025 [facility], [address] [place] [address], [address], 5 12:12:59 furosemide 20 mg tablet [address], [address], 4 17:05:29 prednisone 20 mg tablet [address], [address], 5 16:56:32 hydrocodone 5 mg-acetamin ophen 325 mg tablet [address], [address], 4 10:48:33 albuterol sulfate HFA 90 mcg/actuati on aerosol inhaler [address], [address], 4 18:31:44 Trelegy Ellipta 200 mcg-62.5 mcg-25 mcg powder for inhalation [address], [address], 5 12:29:23 prednisone 20 mg tablet [address], [address], 5 16:56:32 Patient TargetsNo targets recorded. Patient Instructions Encounter Date Encounter Id Patient Instructions Last Modified By Organization Details Last Modified Time 03/14/2024 [id number] smoking cessatio n counseling, greater than 3 minutes up to 10 minutes [email or web address] Not available 03/14/2024 09:48:15 08/28/2024 [id number] smoking cessatio n counseling, greater than 3 minutes up to 10 minutes [email or web address] Not available 08/28/2024 12:11:54 10/15/2024 [id number] smoking cessatio n counseling, greater than 3 minutes up to 10 minutes [email or web address] Not available 10/15/2024 17:19:07 Reason for Referral None Reported. Results Created Date Observation Date Name Description Value Unit Range Abnormal Flag Note LastModifiedBy Organization Detail LastModifiedTime 03/14/20 24 03/15/2024 VITAM IN B12/F OLATE , SERUM PANEL vitamin B12 616 pg/mL 200-11 00 normal Not Available [facility] [address] [place], [address], 03/15/2024 05:19:22 03/14/20 24 03/15/2024 VITAM IN B12/F OLATE , SERUM PANEL folate, serum 2.4 NG/mL low Refer ence Range Low: <3.4 Borde rline : 3.4-5 .4 Maura l: >5.4 Not Available [facility] [address] [place], [address], 03/15/2024 05:19:22 03/14/20 24 03/15/2024 VITAM IN D,25- OH,TO FABY,I A vitamin D,25-oh,tota l,ia 16 NG/mL 30-100 low Vitam in D Statu s 25-OH Vitam in D: Defic iency : <20 ng/mL Insuf ficie ncy: 20 - 29 ng/mL Optim al: > or = 30 ng/mL For 25-OH Vitam in D testi ng on patie nts on D2-shah pplem entat ion and patie nts for whom quant itati on of D2 and D3 fract ions is requi red, the Quest Assur eD(TM ) 25-OH VIT D, (D2,D 3), LC/MS /MS is recom mason d: order code 64909 (tyson ents >2yrs ). See Note 1 Note 1 For addit ional infor patrica galeas e refer to http: //louie snell.Que stDia gnost ics.c om/fa q/FAQ 199 (This link is being provi ded for infor lanette almaraz/ educa carter l purpo ses only. ) Not Available [facility] [address] [facility] , [place], [address], 03/15/2024 05:19:23 08/08/19 25 08/08/2024 CMP (MALE ) glucose 69.0 mg/dL 60.0-9 9.0 Not Available [facility] [address] [facility] [address], [place], [address], 08/08/2024 12:44:38 08/08/19 25 08/08/2024 CMP (MALE ) BUN (blood urea nitrogen) 15.0 mg/dL 10.0-2 6.0 Not Available [facility] [address] [facility] [address] [facility] [address], [place], [address], 08/08/2024 12:44:38 08/08/19 25 08/08/2024 CMP (MALE ) creatinine (serum) 1.1 mg/dL 0.4-1. 5 Not Available [facility] [address] [facility] [address], [place], [address], 08/08/2024 12:44:38 08/08/19 25 08/08/2024 CMP (MALE ) BUN/creatini ne ratio 13.64 ratio Not Available [facility] [address] [facility] [address], [place], [address], 08/08/2024 12:44:38 08/08/19 25 08/08/2024 CMP (MALE ) eGFR calculated 69.7 Not Available [facility] [address] [facility] [address] [facility] [address], [place], [address], 08/08/2024 12:44:38 08/08/19 25 08/08/2024 CMP (MALE ) total protein 7.4 g/dL 6.0-8. 5 Not Available [facility] [address] [facility] [address], [place], [address], 08/08/2024 12:44:38 08/08/19 25 08/08/2024 CMP (MALE ) total bilirubin 0.8 mg/dL 0.2-1. 3 Not Available [facility] [address] [facility] [address], [place], [address], 08/08/2024 12:44:38 08/08/19 25 08/08/2024 CMP (MALE ) albumin 3.9 g/dL 3.5-5. 5 Not Available [facility] [address] [facility] [address], [place], [address], 08/08/2024 12:44:38 08/08/19 25 08/08/2024 CMP (MALE ) globulin 3.5 calc Not Available [facility] [address] [address], [place], [address], 08/08/2024 12:44:38 08/08/19 25 08/08/2024 CMP (MALE ) AST (SGOT) 42.0 U/L 0.0-46 .0 Not Available [facility] [address] [facility] [address], [place], [address], 08/08/2024 12:44:38 08/08/19 25 08/08/2024 CMP (MALE ) altv (SGPT) 34.0 U/L 13.0-6 9.0 normal Not Available [facility] [address] [facility] [address], [place], [address], 08/08/2024 12:44:38 08/08/19 25 08/08/2024 CMP (MALE ) A/G ratio 1.1 ratio Not Available [facility] [address] [facility] [address], [place], [address], 08/08/2024 12:44:38 08/08/19 25 08/08/2024 CMP (MALE ) ALP phos 87.0 U/L 30.0-1 40.0 normal Not Available [facility] [address] [facility] [address], [place], [address], 08/08/2024 12:44:38 08/08/19 25 08/08/2024 CMP (MALE ) calcium 9.0 mg/dL 8.4-10 .5 Not Available [facility] [address] [facility] [address], [place], [address], 08/08/2024 12:44:38 08/08/19 25 08/08/2024 CMP (MALE ) sodium 140.0 mmol/ L 136.0- 145.0 Not Available [facility] [address] [facility] [address], [place], [address], 08/08/2024 12:44:38 08/08/19 25 08/08/2024 CMP (MALE ) potassium 3.8 mmol/ L 3.5-5. 1 Not Available [facility] [address] [facility] [address], [place], [address], 08/08/2024 12:44:38 08/08/19 25 08/08/2024 CMP (MALE ) chloride 112.0 mmol/ L 98.0-1 10.0 abnormal Not Available [facility] [address] [facility] [address], [place], [address], 08/08/2024 12:44:38 08/08/19 25 08/08/2024 CMP (MALE ) C02 25.0 mmol/ L 22.0-3 1.0 Not Available [facility] [address] [facility] [address], [place], [address], 08/08/2024 12:44:38 08/08/19 25 08/08/2024 CMP (MALE ) anion gap 3.0 calc Not Available [facility] [address] [facility] [address], [place], [address], 08/08/2024 12:44:38 08/08/19 25 08/08/2024 CMP (MALE ) osmolality 288.5 calc Not Available [facility] [address] [facility] [address], [place], [address], 08/08/2024 12:44:38 08/08/19 25 08/08/2024 CBC WBC 11.4 x10 4.5-10 .5 high Not Available [facility] [address] [facility], [place], [address], 08/08/2024 12:44:42 08/08/1908/08/2024 CBC RBC 4.62 x10 4.30-5 .90 Not Available [facility] [address] [facility], [place], [address], 08/08/2024 12:44:42 08/08/19 25 08/08/2024 CBC HGB 13.5 g/dL 13.5-1 8.0 Not Available [facility] [address] [facility], [place], [address], 08/08/2024 12:44:42 08/08/19 25 08/08/2024 CBC HCT 40.0 % 35.0-6 0.0 Not Available [facility] [address] [facility], [place], [address], 08/08/2024 12:44:42 08/08/1908/08/2024 CBC MCV 86.5 fL 80.0-9 9.9 Not Available [facility] [address] [facility], [place], [address], 08/08/2024 12:44:42 08/08/1908/08/2024 CBC MCH 29.2 pg 27.0-3 2.0 Not Available [facility] [address] [facility], [place], [address], 08/08/2024 12:44:42 08/08/19 25 08/08/2024 CBC MCHC 33.8 g/dL 32.0-3 6.0 Not Available [facility] [address] [facility], [place], [address], 08/08/2024 12:44:42 08/08/19 25 08/08/2024 CBC RDW 20.5 % 11.5-1 4.5 high Not Available [facility] [address] [address], [place], [address], 08/08/2024 12:44:42 08/08/19 25 08/08/2024 CBC plt 253.8 x10 150.0- 451.0 Not Available [facility] [address] [address], [place], [address], 08/08/2024 12:44:42 08/08/19 25 08/08/2024 CBC lymphocytes % 16.3 % 20.0-5 0.0 low Not Available [facility] [address] [address], [place], [address], 08/08/2024 12:44:42 08/08/19 25 08/08/2024 CBC granulcytes % 76.1 % 30.0-7 0.0 high Not Available [facility] [address] [address], [place], [address], 08/08/2024 12:44:42 08/08/19 25 08/08/2024 CBC monocytes % 6.1 % 2.0-16 .0 Not Available [facility] [address], [address], 08/08/2024 12:44:42 08/08/19 25 08/08/2024 CBC granulcytes# 8.7 x10 Not Aminata ilable [facility] [address] [facility], [place], [address], 08/08/2024 12:44:42 08/08/19 25 08/08/2024 CBC lymphocytes # 1.9 x10 Not Available [facility] [address] [facility] [address], [place], [address], 08/08/2024 12:44:42 08/08/19 25 08/08/2024 CBC monocytes # 0.7 x10 Not [facility] [address] [address], [place], [address], 08/08/2024 12:44:42 08/08/19 25 08/08/2024 LIPID PROFI LE (MALE ) cholesterol 173.0 mg/dL 0.0-20 0.0 Not Available [facility] [address] [address], [place], [address], 08/08/2024 12:45:44 08/08/19 25 08/08/2024 LIPID PROFI LE (MALE ) trig 170.0 mg/dL 0.0-15 0.0 high Not Available [facility] [address] [address], [place], [address], 08/08/2024 12:45:44 08/08/19 25 08/08/2024 LIPID PROFI LE (MALE ) HDL - direct 28.0 mg/dL >40.0 low Not Available [facility] [address] [address], [place], [address], 08/08/2024 12:45:44 08/08/19 25 08/08/2024 LIPID PROFI LE (MALE ) VLDL - direct 34.0 mg/dL Not Available [facility] [address] [address], [place], [address], 08/08/2024 12:45:44 08/08/19 25 08/08/2024 LIPID PROFI MIO (MALE ) LDL - direct 111.0 mg/dL 0.0-13 0.0 Not Available [facility] [address] [facility] [address], [place], [address], 08/08/2024 12:45:44 08/08/19 25 08/09/2024 TESTO STERO NE, TOTAL , MALES (ADUL T), IA testosterone , total, males (adult), ia 947 NG/dL 250-82 7 high Not Available [place] [address] [place], [address], 08/09/2024 11:09:10 08/08/19 25 08/09/2024 VITAM IN B12/F OLATE , SERUM PANEL vitamin B12 405 pg/mL 200-11 00 normal Not Available [facility] [address] [place], [address], 08/09/2024 11:09:11 08/08/19 25 08/09/2024 VITAM IN B12/F OLATE , SERUM PANEL folate, serum 1.9 NG/mL low Refer ence Range Low: <3.4 Borde rline : 3.4-5 .4 Maura l: >5.4 Not Available [facility] [address] [place], [address], 08/09/2024 11:09:11 08/08/1908/09/2024 VITAM IN D,25- OH,TO FABY,I A vitamin D,25-oh,tota l,ia 24 NG/mL 30-100 low Vitam in D Statu s 25-OH Vitam in D: Defic iency : <20 ng/mL Insuf ficie ncy: 20 - 29 ng/mL Optim al: > or = 30 ng/mL For 25-OH Vitam in D testi ng on patie nts on D2-shah pplem entat ion and patie nts for whom quant itati on of D2 and D3 fract ions is requi red, the Quest Assur eD(TM ) 25-OH VIT D, (D2,D 3), LC/MS /MS is recom mason d: order code [id number] (tyson ents >2yrs ). See Note 1 Note 1 For addit ional infor patrica galeas refer to http: //[facility] raffi Wise gnost ics.c om/fa q/FAQ 199 (This link is being provi ded for infor lanette almaraz/ ian bourne purpo ses only. ) Not Available [place] [address] [address] [place], [address], 08/09/2024 11:09:12 10/16/19 25 10/17/2024 VITAM IN B12/F OLATE , SERUM PANEL vitamin B12 512 pg/mL 200-11 00 normal Not Available [place] [address] [address] [place], [address], 10/17/2024 07:15:46 10/16/19 25 10/17/2024 VITAM IN B12/F OLATE , SERUM PANEL folate, serum 1.7 NG/mL low Refer ence Range Low: <3.4 Borde rline : 3.4-5 .4 Maura l: >5.4 Not Available [place] [address] [address] [place], [address], 10/17/2024 07:15:46 10/16/19 25 10/17/2024 VITAM IN D,25- OH,TO FABY,I A vitamin D,25-oh,tota l,ia 14 NG/mL 30-100 low Vitam in D Statu s 25-OH Vitam in D: Defic iency : <20 ng/mL Insuf ficie ncy: 20 - 29 ng/mL Optim al: > or = 30 ng/mL For 25-OH Vitam in D testi ng on patie nts on D2-shah pplem entat ion and patie nts for whom quant itati on of D2 and D3 fract ions is requi red, the Quest Assur eD(TM ) 25-OH VIT D, (D2,D 3), LC/MS /MS is recom mason d: order code 41765 (tyson ents >2yrs ). See Note 1 Note 1 For addit ional infor patrica galeas refer to http: //[facility] raffi Wise gnost ics.c om/fa q/FAQ 199 (This link is being provi ded for infor lanette almaraz/ educa carter bourne purpo ses only. ) Not Available [facility] [address] [place], [address], 10/17/2024 07:15:47 08/08/19 25 08/08/2024 elect rocar diogr am No observ ation record ed. [email or web address] [facility] ([facility]) [address] [place], [address], 08/08/2024 14:05:29 08/08/19 25 08/08/2024 XR, chest , 2 view No observ ation record ed. [email or web address] [facility] ([facility]) [address] [place], [address], 08/08/2024 12:43:40 08/08/19 25 08/08/2024 elect rocar diogr am No observ ation record ed. [email or web address] Not Available 2024 16:42:23 08/09/19 25 08/08/2024 XR, chest , 2 view No observ ation record ed. [email or web address] [facility] [address] [place], [address], 08/15/2024 08:14:13 08/17/19 25 08/08/2024 elect rocar diogr am No observ ation record ed. [email or web address] [facility] ([facility]) [address] [place], [address], 08/20/2024 16:35:04 Result Notes None recorded. Problems Name Problem SNOMED Code Status Onset Date Resolution Date Notes Provider Name and Address Organization Details Recorded Time Low back pain 612481698 Active 2004 Vickie knutson, [facility] 5 16:57:21 Essential hypertensio n 84534648 Active 2004 Vickie knutson, [facility] 5 16:57:21 Pain of right shoulder joint 4160292304760 9100 Active 2023 Vickieisaiah Carrion null, [facility] 5 16:57:20 Umbilical hernia 317323384 Active 2023 [facility] 16:57:21 Chronic obstructive pulmonary disease 59265841 Active 2023 Vickie Carrion [facility] 5 16:57:20 Benign prostatic hyperplasia 536771155 Active 2023 [facility] 5 16:57:21 Depressive disorder 82173185 Active 2023 Vickieisaiah Carrion [facility] 5 16:57:21 Seizure disorder 227781272 Active 2023 [facility] 5 16:57:20 Hyperlipide landon 93000686 Active 2023 [facility] 16:57:21 Obesity 834274669 Active 2023 [facility] 5 16:57:21 Gastroesoph ageal reflux disease 714878224 Active 2023 [facility] 5 16:57:21 Hypogonadis m 25851164 Active 2023 Vickie Carrion null, [facility] 5 16:57:21 Peripheral nerve disease 154662431 Active 2023 Vickie Carrion null, [facility] 5 16:57:21 Difficulty walking 172480656 Active 2023 Vickie Carrion null, [facility] 5 16:57:21 Cerebral hemorrhage 791557979 Active 2023 Vickie Carrion [facility], [facility] 5 16:57:21 Cobalamin deficiency 395014116 Active 2023 Vickie Carrion [facility] 5 16:57:21 Vitamin D deficiency 07957339 Active 2023 Vickie Carrion [facility] 5 16:57:21 Folic acid deficiency 028158389 Active 2023 Vickie Carrion [facility] 5 16:57:21 Adhesive capsulitis of right shoulder 1113714466867 09 Active 2023 Vickie Carrion [facility], [facility] 5 16:57:21 Smoker 95400163 Active 2023 Vickie Carrion [facility] 5 16:57:21 Dyspnea on exertion 95952123 Active 2024 Vickie Carrion [facility] 5 16:57:21 Influenza A virus present 237445516006 Active 2024 Vickie Carrion null, [facility], LFabioLAg. 16:57:21 Sciatica 17912132 Active 2024 [address] [place] [address], [address] , [facility], LIzabel. 17:08:19 Problem Notes None recorded. Medical Equipment None Reported. Allergies No known drug allergies Medications Name Sig Start Date Stop Date Status Note LastModified by Organization Details LastModified Time nystatin 100,000 unit/mL oral suspensio n TAKE 5ML FOUR TIMES DAILY DIRECTED for 10 days 10/15 completed Not Available Not Available Not Available venlafaxi ne ER 75 mg capsule,e xtended release 24 hr take 1 capsule BY MOUTH EVERY DAY with food active Not Available Not Available No t Available gabapenti n 600 mg tablet take ONE tablet twice daily active Not Available Not Available No t Available albuterol sulfate 2.5 mg/3 mL (0.083 %) solution for nebulizat ion use 1 vial IN NEBULIZE R EVERY 4 HOURS NEEDED FOR SHORTNES S OF BREATH 2024 active Not Available Not Available Not Avai lable loperamid e 2 mg capsule TAKE 2 CAPSULES BY MOUTH EVERY 4 HOURS NEEDED FOR DIARRHEA active Not Available Not Available No t Available levetirac etam 500 mg tablet TAKE 1 TABLET BY MOUTH EVERY DAY 2024 active Not Available Not Available Not Avai lable hydrocodo ne 5 mg-acetam inophen 325 mg tablet TAKE 1 TABLET BY MOUTH THREE TIMES DAILY as needed for severe pain active Not Available Not Available No t Available lisinopri l 20 mg tablet TAKE 1 TABLET BY MOUTH EVERY DAY active Not Available Not Available No t Available ondansetr on HCl 4 mg tablet 10/15 completed Not Available Not Available Not Available prednison e 20 mg tablet TAKE 2 TABLETS BY MOUTH EVERY DAY for 7 days active Not Available Not Available No t Available omeprazol e 40 mg capsule,d elayed release TAKE 1 CAPSULE BY MOUTH EVERY MORNING 30 MINUTES BEFORE MORNING MEAL active Not Available Not Available No t Available ondansetr on 8 mg disintegr ating tablet PLACE ONE TABLET UNDER THE TONGUE THREE TIMES DAILY NEEDED FOR NAUSEA AND VOMITING 10/15 completed Not Available Not Available Not Available Imodium A-D 2 mg tablet Take 2 tablets every 4 hours by oral route as needed, for diarrhea . 2024 active Not Available Not Available Not Avai lable tamsulosi n 0.4 mg capsule TAKE 1 CAPSULE BY MOUTH TWO TIMES DAILY active Not Available Not Available No t Available cyanocoba kaye (vit B-12) 1,000 mcg/mL injection solution INJECT 1 ML DEEP SUBCUTAN EOUSLY EVERY DAY FOR 7 DAYS THEN ONCE A WEEK FOR FOUR WEEK THEN ONCE A MONTH 08/08 completed Not Available Not Available Not Available trazodone 150 mg tablet TAKE 1 TABLET BY MOUTH AT BEDTIME NEEDED active Not Available Not Available No t Available oseltamiv ir 75 mg capsule 10/15 completed Not Available Not Available Not Available lisinopri l 10 mg tablet TAKE 1 TABLET BY MOUTH TWICE DAILY 08/08 completed Not Available Not Available Not Available folic acid 1 mg tablet Take 5 tablets every day by oral route for 90 days. 2023 active Not Available Not Available Not Avai lable diclofena c sodium 50 mg tablet,de layed release TAKE 1 TABLET BY MOUTH TWICE DAILY active Not Available Not Available No t Available furosemid e 20 mg tablet Take 1 tablet every day by oral route for 30 days, for swelling . active Not Available Not Available No t Available testoster one cypionate 200 mg/mL intramusc ular oil inject 1ml INTRAMUS CULARLY every month 2024 active Not Available Not Available Not Avai lable albuterol sulfate HFA 90 mcg/actua tion aerosol inhaler INHALE TWO PUFFS EVERY 4 HOURS NEEDED active Not Available Not Available No t Available Vitamin D2 1,250 mcg (50,000 unit) capsule take 1 capsule BY MOUTH twice a week 2024 active Not Available Not Available Not Avai lable finasteri de 5 mg tablet TAKE 1 TABLET BY MOUTH EVERY DAY active Not Available Not Available No t Available amoxicill in 875 mg-potass ium clavulana te 125 mg tablet 10/15 completed Not Available Not Available Not Available rosuvasta tin 20 mg tablet Take 1 tablet every day by oral route for 90 days. active Not Available Not Available No t Available meclizine QID 10/16 completed for dizzines s ; Recorded 09/30/19 05 7:07PM by RADHA Christiansen, , Office Visit; Not Available Not Available Not Available Percocet PRN 10/16 completed 0; Recorded 09/30/19 05 7:07PM by Nereyda Shelton MA, Office Visit; Not Available Not Available Not Available Lotrel QD 10/16 completed 0; Recorded 09/30/19 05 7:07PM by Nereyda Shelton MA, Office Visit; Not Available Not Available Not Available Trelegy Ellipta 100 mcg-62.5 mcg-25 mcg powder for inhalatio n Inhale 1 puff every day by inhalati on route, for COPD. 06/27 completed Not Available Not Available Not Available Trelegy Ellipta 200 mcg-62.5 mcg-25 mcg powder for inhalatio n INHALE 1 PUFF EVERY DAY FOR COPD active Not Available Not Available No t Available Vitals Date Recorded Body height Body mass index (BMI) Body weight Oxygen saturation Oxygen saturation in Arterial blood by Pulse oximetry Heart rate Respiratory rate Systolic And Diastolic Provider Name and Address Organization Details Last Updated DateTime 172.72 cm 30.8 kg/m2 44667.7 6 g 96 % 96 % 100 /min 20 /min 124/80 mm[Hg] Vickie [facility] 5 10:54:36 Date Recorded Body height Oxygen saturation Oxygen saturation in Arterial blood by Pulse oximetry Heart rate Respiratory rate Body mass index (BMI) Body weight Body temperature Oxygen saturation Oxygen saturation in Arterial blood by Pulse oximetry Oxygen saturation Oxygen saturation in Arterial blood by Pulse oximetry Provider Name and Address Organization Details Last Updated DateTime 172.72 cm 94 % 94 % 96 /min 20 /min 29.6 kg/m2 73361.0 2 g 98.2 [degF] 89 % 89 % 95 % 95 % [facility] 5 11:13:58 Date Recorded Inhaled oxygen flow rate Systolic And Diastolic Provider Name and Address Organization Details Last Updated DateTime 08/28/2024 2 L/min 138/70 mm[Hg] [facility] 08/28/2024 10:18:20 Date Recorded Body height Body mass index (BMI) Body weight Oxygen saturation Oxygen saturation in Arterial blood by Pulse oximetry Heart rate Respiratory rate Systolic And Diastolic Provider Name and Address Organization Details Last Updated DateTime 5 172.72 cm 28.6 kg/m2 37173.0 7 g 98 % 98 % 97 /min 20 /min 130/80 mm[Hg] [facility] 5 16:55:07 Date Recorded Body height Body mass index (BMI) Body weight Oxygen saturation Oxygen saturation in Arterial blood by Pulse oximetry Heart rate Respiratory rate Systolic And Diastolic Provider Name and Address Organization Details Last Updated DateTime 4 172.72 cm 31.2 kg/m2 18727.2 4 g 97 % 97 % 82 /min 20 /min 140/90 mm[Hg] [facility] 4 09:12:41 Date Recorded Body height Body mass index (BMI) Body weight Oxygen saturation Oxygen saturation in Arterial blood by Pulse oximetry Heart rate Provider Name and Address Organization Details Last Updated DateTime 4 172.72 cm 32 kg/m2 15869.8 g 97 % 97 % 93 /min [facility] 4 10:46:43 Social History None recorded. Functional Status Question Answer Note LastModified by Organizat ion Details LastModified Time Do you use any illicit or recreational drugs? No [email or web address] Information not available 11/01/2023 What is your level of alcohol consumption? Occasional [email or web address] Information not available 11/01/2023 Mental Status None recorded. Family History Nothing Reported. Medical History Condition Response Kidney Stones Y Hypertension Y Immunizations Vaccine Type Date Status Note Provider Nam e and Address Organization Details Recorded Time Influenza, MDCK, quadrivalent, PF 05/12/2020 completed DELONTE knutson [facility] 10/17/2023 15:58:12 COVID-19, mRNA, LNP-S, PF, 100 mcg/0.5mL dose or 50 mcg/0.25mL dose 07/24/2021 completed DELONTE [facility] 10/17/2023 15:58:12 COVID-19, mRNA, LNP-S, PF, 100 mcg/0.5mL dose or 50 mcg/0.25mL dose 08/27/2020 completed DELONTE [facility] 10/17/2023 15:58:12 COVID-19, mRNA, LNP-S, PF, 100 mcg/0.5mL dose or 50 mcg/0.25mL dose 09/24/2020 completed DELONTE [facility] 10/17/2023 15:58:12 influenza, split (incl. purified surface antigen) 05/06/2010 completed DELONTE [facility] 10/17/2023 15:58:12 Past Encounters Encounter ID Performer Location Encounter Start Date Encounter Closed Date Diagnosis/Indication Diagnosis SNOMED-CT Code Diagnosis ICD10 Code Diagnosis IMO Codes Diagnosis Note [id number] Bridger Asencio MD [facility] ([facility]) [address] [place] [phone] 10/17/2023 15:55:42 10/17/2023 17:17:27 [id number] Hair Smith DO [facility] ([facility]) [address] [place] [phone] 11/01/2023 13:59:27 11/01/2023 16:33:33 Adult health examination 273682413 Z00.00 Essential hypertension 48343907 I10 Counseled increase Lisinopril from 10mg to 20mg daily. Continue to monitor BP. Depressive disorder 3797 6589 F33.0 Depression after loss of spouse, denies any depression today. Continue Venlafaxin e Seizure disorder 2764657 02 R56.9 Stable. Continue Keppra 500mg daily. Seeing Neuro [place] Hyperlipidemia 84427114 E78.5 Continue Rosuvastat in. Lab today. Benign pro static hyperplasia 842988420 N40.0 Continue Tamsulosin , Finasterid e. PSA today. Obesity 080128808 E66.9 Counseled on diet, exercise. Gastroesop hageal reflux disease 195871147 K21.9 Continue Omeprazole 40mg daily. Umbilical hernia 8410046 07 K42.9 Referral to Surgeon, Dr. Brooks. Pain of ri ght shoulder joint 0363299998 7292869 M25.511 Chronic, XR today, consider injection. Previously on Tramadol stopped d/t increased risk of seizing and h/o seizures. Chronic ob structive pulmonary disease 36249828 J44.9 Continue Albuterol neb PRN, will also send daily inhaler. CXR today. Hypogonadism 09128653 E2 9.1 Testostero ne injections monthly on the . Lab today. Peripheral nerve disease 269300421 G64 Numbness in b/l feet chronicall y, worsening. A1c today. Difficulty walking 74046 2002 R26.2 S/p multiple brain bleeds, chronic dizziness with walking. Cerebral hemorrhage 2741 71515 I61.9 X4 per patient, prior to 2019, memory loss, dizziness, difficulty ambulating . [id number] Hair Smith DO [facility] ([facility]) [address] [place] [phone] 5 11/15/2023 12:13:16 11/15/2023 17:37:42 Cobalamin deficiency 712367687 E53.8 I counseled the patient on diagnosis, treatment options, medication s, and expectatio ns. All questions were addressed. They were instructed to call the office or come in for Follow Up with any questions, concerns, or worsening problems.w ill start intensive SC b12 injections as per below, will repeat labs in 3 mts. Vitamin D deficiency 347 26300 E55.9 I counseled the patient on diagnosis, treatment options, medication s, and expectatio ns. All questions were addressed. They were instructed to call the office or come in for Follow Up with any questions, concerns, or worsening problems.w ill start intensive Vit D RX 2x/wk as per below, will repeat labs in 3 mts. Folic acid deficiency 19 4571874 E53.8 I counseled the patient on diagnosis, treatment options, medication s, and expectatio ns. All questions were addressed. They were instructed to call the office or come in for Follow Up with any questions, concerns, or worsening problems.w ill start RX as per below, will repeat labs in 3 mts. Adhesive c apsulitis of right shoulder 4438640329 60192 M75.01 worsening pain and decreasing ROM. developing frozen shoulder with Rotator cuff injury and arthritis. counseled on Xray results. will start PT. consider joint injection after starting PT. [id number] Hair Smith DO [facility] ([facility]) [address] [place] [phone] 5 01/03/2024 11:57:08 01/03/2024 16:17:06 Essential hypertension 81735262 I10 Counseled continue Lisinopril 20mg daily. Again patient needs to monitor BP. Chronic ob structive pulmonary disease 72757395 J44.9 Continue Albuterol neb PRN and Trelegy daily. Counseled on smoking cessation. Adhesive c apsulitis of right shoulder 6064460682 38861 M75.01 Patient has not started physical therapy yet as he did not have rides coordinate d. He does have rides coordinate d now and will call physical therapy specialist s that this. Counseled on need for physical therapy for her shoulder. Will increase hydrocodon e to 30 pills/shira h for now and anticipate decreasing this in the future. Cobalamin deficiency 190 204458 E53.8 Patient has completed his buildup course and now is on monthly injections . Will plan on repeat labs in 6 weeks which should be close to the end of his month. Folic acid deficiency 19 8584935 E53.8 Can continue folic acid daily. Repeat labs with appointmen t in 6 weeks. Smoker 97531588 F17.200 I counseled patient on smoking risks, hazards, complicati ons, and associated illnesses. We discussed smoking cessation options. The patient will work on cutting back but is not ready to quit. We spent 4 minutes discussing this. All questions were addressed. [id number] Hair Smith DO [facility] ([facility]) [address] [place] [phone] 03/14/2024 08:56:56 03/14/2024 09:51:22 Essential hypertension 73956445 I10 Counseled continue Lisinopril 20mg daily. Again patient needs to monitor BP. Chronic ob structive pulmonary disease 39474152 J44.9 Continue Albuterol neb PRN , will increase Trelegy dose, Prednisone today. Continue working on quitting smoking. Adhesive c apsulitis of right shoulder 1987650020 48145 M75.01 Continue Hydrocodon e as needed for pain. Cobalamin deficiency 190 650802 E53.8 03/14/24- Last B12 injection January 2024, will recheck lab today, pending results will do phone f/u regarding continuing injections . Folic acid deficiency 19 4609799 E53.8 Can continue folic acid daily. Repeat labs with appointmen t in 6 weeks. Vitamin D deficiency 347 73269 E55.9 03/14/24- Repeat lab today, phone f/u. Low back pain 342043445 M54.50 03/14/24- Counseled short course Prednisone will also help with acute back pain/ inflammati on, we don't want to change Hydrocodon e to Tramadol with him having had seizure just 6 months ago. Seizure disorder 9705436 02 R56.9 Last seizure activity early 2023.Stabl e. Continue Keppra 500mg daily. Seeing Neuro [place] Smoker 36246516 F17.200 I counseled patient on smoking risks, hazards, complicati ons, and associated illnesses. We discussed smoking cessation options. The patient will work on cutting back but is not ready to quit. We spent 4 minutes discussing this. All questions were addressed. [id number] Hair Smith DO [facility] ([facility]) [address] [place] [address] [phone] 5 06/27/2024 10:42:18 07/08/2024 08:32:51 Low back pain 664034985 M54.50 06/27/24- flared, short course Prednisone , counseled he shouldn't need the Hydrocodon e, as the Prednisone will help the inflammati on and reduce the pain.- Counseled short course Prednisone will also help with acute back pain/ inflammati on, we don't want to change Hydrocodon e to Tramadol with him having had seizure just 6 months ago. Edema of l ower extremity 859222373 R60.0 06/27/24- Furosemide for one week, then as needed. [id number] Hair Smith DO [facility] ([facility]) [address] [place] [address] 08/08/2024 10:41:48 08/09/2024 11:04:26 Essential hypertension 77486474 I10 Counseled continue Lisinopril 20mg daily. Chronic ob structive pulmonary disease 28068029 J44.9 Continue Albuterol neb PRN , will increase Trelegy dose, Prednisone today. Continue working on quitting smoking. Cobalamin deficiency 190 801915 E53.8 03/14/24- Last B12 injection January 2024, will recheck lab today, pending results will do phone f/u regarding continuing injections . Folic acid deficiency 19 4250428 E53.8 Can continue folic acid daily. Repeat labs with appointmen t in 6 weeks. Vitamin D deficiency 347 11896 E55.9 03/14/24- Repeat lab today, phone f/u. Low back pain 833300855 M54.50 03/14/24- Counseled short course Prednisone will also help with acute back pain/ inflammati on, we don't want to change Hydrocodon e to Tramadol with him having had seizure just 6 months ago. Seizure disorder 1687421 02 R56.9 Last seizure activity early 2023.Stabl e. Continue Keppra 500mg daily. Seeing Neuro [place] Depressive disorder 3548 9007 F33.0 Depression after loss of spouse, denies any depression today. Continue Venlafaxin e Hyperlipidemia 27121328 E78.5 Continue Rosuvastat in. Lab today. Smoker 72572642 F17.200 I counseled patient on smoking risks, hazards, complicati ons, and associated illnesses. We discussed smoking cessation options. The patient will work on cutting back but is not ready to quit. We spent 4 minutes discussing this. All questions were addressed. Difficulty walking 58417 2002 R26.2 Z91.81 S/p multiple brain bleeds, chronic dizziness with walking. Obesity 542781574 E66.9 Counseled on diet, exercise. Hypogonadism 58323888 E2 9.1 Testostero ne injections monthly on the . Lab today. Tachycardia 9934339 R00. 0 Adhesive c apsulitis of right shoulder 1276876664 10899 M75.01 Continue Hydrocodon e as needed for pain. Dyspnea 388366997 R06.00 CXR today. [id number] Hair Smith DO [facility] ([facility]) [address] [place] [address] [phone] 5 08/28/2024 09:46:57 08/30/2024 07:35:31 Influenza A virus present 6406920443 08 J09.X2 Pt left the hospital prior to receiving dc instructio dannie. He is not improving. Discussed returning to hospital, pt prefers to treat at home, he has C coming out now. Using Trelegy and Albuterol for his COPD. Will send order for home neb, Albuterol neb.Ambula tory O2 trial today, down to 89% on RA with minimal exertion, up to 95% on 2L, will write home O2 at 2L n/c. if any worsening, pt needs to go to ER for re-admissi on. Candidiasis of mouth 797 17095 B37.0 Counseled on diagnosis, treatment options including medication s and possible side effects. Nausea, vo miting and diarrhea 0463357 R11.2 R19.7 Ondansetro n, Imodium. Counseled on diagnosis, treatment options including medication s and possible side effects. Smoker 64441252 F17.200 Pt quit smoking when dx with Flu A on 08/23/24, counseled continue not smoking.I counseled patient on smoking risks, hazards, complicati ons, and associated illnesses. We discussed smoking cessation options. We spent 4 minutes discussing this. All questions were addressed. [id number] Hair Smith DO [facility] ([facility]) [address] [place] [phone] 10/15/2024 16:40:04 10/16/2024 10:05:41 Cobalamin deficiency 204765447 E53.8 10/15/24: has not been on b12 shots for several mts. taking OTC vit B12. 4- Last B12 injection January 2024, will recheck lab today, pending results will do phone f/u regarding continuing injections . Folic acid deficiency 19 2349376 E53.8 Can continue folic acid daily. Repeat labs today Difficulty walking 17461 2002 R26.2 Z91.81 S/p multiple brain bleeds, chronic dizziness with walking. Vitamin D deficiency 347 39569 E55.9 03/14/24- Repeat lab today, Chronic low back pain 27 0904627 M54.50 worsening. will get xray today. may need MRI due to concerns for myelpathy from L spine nerve impingment . Sciatica 40315500 M54.31 xray and steroids today. may need MRI as per above. Chronic ob structive pulmonary disease 14176076 J44.9 Ambulating O2 good today without suppliment al oxygen. no need for supplement al oxygen at this time.Luke nue Albuterol neb PRN , will increase Trelegy dose, Prednisone today. Continue working on quitting smoking. Adhesive c apsulitis of right shoulder 8454781565 06705 M75.01 Continue Hydrocodon e as needed for pain. Smoker 78792941 F17.200 Pt quit smoking when dx with Flu A on 08/23/24, counseled continue not smoking.I counseled patient on smoking risks, hazards, complicati ons, and associated illnesses. We discussed smoking cessation options. We spent 6 minutes discussing this. All questions were addressed. Health Concerns Section Related Observation LastModified by Organization Detai ls LastModified Time None Recorded Concern Status LastModified by Organization Details LastModified Time None Recorded Advance Directives Directive None Recorded Payers Insurance Date Sequence Insurance Name Policy Number Policy Ballesteros Covered Member ID Ballesteros Member ID Guarantor Name 12/19/2024 [place] [facility] Julio Mccann [id number] Julio Mccann 12/19/2024 2 [place] Julio Mccann [id number] Julio Mccann 12/19/2024 1 [employer] (MEDICARE REPLACEMENT/A DVANTAGE - PPO) [id number] Julio Mccann [id number] Julio Mccann 08/20/2024 1 [facility] (MEDICARE REPLACEMENT/A DVANTAGE - HMO) [id number] Julio Mccann [id number] Julio Mccann Notes Date Note Type Note Provider Name and Address Organization Details Recorded Time 03/14/2024 text/html ROS as noted in the HPI Pt presents for 6 week recheck on chronic illness HTN, COPD, and back pain. BP has been running good at home, continues Lisinopril, tolerating well. C/o sore throat for 2-3 days, thinks may have sang too much, has been playing music lately.Denies any fever/ chills/ cough. Having some increased SOB and WILDE for 2-3 weeks. Continues Trelegy.He finds he needs to sit and rest with walking just a short period, even around the house.He continues smoking, has cut back to 5-6 cigarettes per day, working on quitting. Having some back pain after a trip and stumble yesterday. He was taking the trash out and stumbled over a railroad tie, didn't completely fall.He is prescribed Hydrocodone, would like to change this to Tramadol, I guess it's better for you . He last had a seizure 6 months ago.He continues Diclofenac, they must help a little . He had surgery on 01/23/24 for umbilical hernia repair with Dr. Brooks ---went well no complications He has not received b12 for injections, unsure if to continue on these or not. Hair SchwabDO arturo [address] [place] [address], [phone], [facility] 03/14/2024 09:49:15 06/27/2024 text/html ROS as noted in the HPI Pt presents for acute illness, right leg pain for 6 days. Denies any new fall or injury.He did have a near fall, caught himself before he completely fell. Starting in his right hip radiating down to his foot, 5/10 at rest, 10/10 with moving/ walking.He has been taking his Gabapentin, helping some. He is out of Hydrocodone, would like it refilled. He continues with chronic back pain. BP today was 172/98 right arm, rechecked on left arm at 160/80 He reports weight has come down per home scale over the last one month. Also reporting worsening SOB, finds he is having to stop and rest to catch his breath when walking. Hairraj SchwabDO arturo [address] [place] [address], [phone], [facility] 07/07/2024 18:01:53 08/08/2024 text/html ROS as noted in the HPI Pt presents for 5 month recheck on chronic illness HTN, COPD, and back pain. [facility] visit BP has been running good at home, continues Lisinopril, tolerating well.He admits it has been higher at home the last few days. Occasionally feeling his heart flutter, initially occurred around age 30, has been intermittent since then, denies worsening lately. He admits to having depression sx recently and score on screen today 15.Continues Venlafaxine 75mg daily. He continues smoking, down to 1/2ppd now, has been working on cutting back. He is planning to quit 09/16/24, his granddaughter's birthday. Rare alcohol use. Recently had a hot toddy d/t cough and was able to sleep. He c/o having some increased SOB and WILDE for the last month. Continues Trelegy. He finds he has to stop and rest when walking to family's house next door. Overall he feels his inhalers help quite a bit. He did have a visit to the ER on 07/19/24 or 07/20/24 for dizziness and passing out, called the ambulance and his bp was high but no tx. States that he seen Dr. Tineo. Recently stood up at home, was off balance and fell. No injury. Unsure if he is taking Folic Acid 5 tabs per day, doesn't think so. nurse is setting his meds up, giving him his testosterone injections. He continues with back pain, it is keeping him up at night. Requesting refill on Hydrocodone. Hair Smith, DO [address] [place] [address], [phone], [facility] 08/08/2024 11:25:39 08/28/2024 text/html ROS as noted in the HPI Pt presents for hospital f/u for Flu A He tested positive for Flu A at [facility] on 08/23/24 He was admitted on 08/23/24 - 08/24/24. He and spouse admit that he was planned to be dc'd, then pt left without instructions. No scripts.He c/o unable to catch his breath, SOB and fatiguedHe would like to get oxygenSating 94% on RA in clinic today. He hasn't smoked a cigarette in 1 week. He has not been able to eat or hold food down for 5 daysHe has been drinking 2-3 cups of water per day.He has had fever and highest was 101.6 on Tuesday He has n/v/d, cough/congestion and difficulty breathing, states the diarrhea is wateryHe has had the sx for 2 weeks, he is unable to cough up anything. He also c/o dizziness He has HHC right now. Ambulating oxygen test he dropped to 89% on RA ambulating approximately 25 feet applied oxygen and brought 02 sat to 95 % with 2 liters per [place] Hair Smith DO [address] [place] [address], [phone], [facility], Shanna. 08/28/2024 12:12:02 10/15/2024 text/html ROS as noted in the HPI Pt presents for dizziness and back pain He is having difficulty walking d/t the pain, he rates pain at 9/10He c/o left leg sciatic pain again. last flair up was 2 wks ago for 3 days, then again 3 days ago. can't get comfortable.He denies any fevers ro chills. no n/v/d. no syncope. no CP or change in SOB. pt has known vit D, b12, and folate def. Hair Smith DO [address] [place] [address], [phone], [facility], Shanna. 12/19/2024 08:16:15
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
--- NOTE | 2025-05-26 13:21 | W.ED.CHESTPA ---
HPI - Chest Pain General: Chief Complaint: Chest Pain Stated Complaint: chest pain Time Seen by Provider: 05/26/25 13:08 History of Present Illness: 74-year-old male presents emergency room via EMS. His home health aide called he was poorly responsive. EMS said when they first encountered him he is in A-fib with RVR he was given 25 mg of Cardizem. He has been hypotensive received a liter of fluid and route he is difficult to understand but he does arouse and respond to verbal stimuli he denies chest or abdominal pain or shortness of breath he has some vomitus in his freedman that almost appears slightly reddish but is not clearly blood. He has a history of chronic alcohol use he admits to having been drinking this morning. He is not on any anticoagulants no history of any upper GI bleed. Associated symptoms: Deny abdominal pain, dyspnea or fever(s) Related Data Home Medications ?Medication ?Instructions ?Recorded ?Confirmed albuterol sulfate 90 mcg/actuation 2 puff inhalation Q4H PRN 07/18/24 05/26/25 aerosol inhaler Shortness Of Breath finasteride 5 mg tablet 5 mg PO DAILY 07/18/24 05/26/25 gabapentin 600 mg tablet 600 mg PO BID 07/18/24 05/26/25 levetiracetam 500 mg tablet 500 mg PO DAILY 07/18/24 05/26/25 lisinopril 20 mg tablet 20 mg PO DAILY 07/18/24 05/26/25 omeprazole 40 mg capsule,delayed 40 mg PO QAM 07/18/24 05/26/25 release tamsulosin 0.4 mg capsule 0.4 mg PO BID 07/18/24 05/26/25 testosterone cypionate 200 mg/mL 200 mg IM Q30D 07/18/24 05/26/25 intramuscular oil trazodone 150 mg tablet 150 mg PO BEDTIME 07/18/24 05/26/25 venlafaxine 75 mg capsule,extended 75 mg PO DAILY 07/18/24 05/26/25 release 24 hr albuterol sulfate 2.5 mg/3 mL 2.5 mg inhalation Q4H 09/04/24 05/26/25 (0.083 %) solution for nebulization diclofenac sodium 50 mg 50 mg PO BID 05/26/25 05/26/25 tablet,delayed release fluticasone fur. 200 mcg-umeclid 1 ea inhalation DAILY 05/26/25 05/26/25 62.5 mcg-vilant 25 mcg inhalat.powder (Trelegy Ellipta) rosuvastatin 20 mg tablet 20 mg PO DAILY 05/26/25 05/26/25 Previous Rx's ?Medication ?Instructions ?Recorded multivitamin with folic acid 400 1 tab PO DAILY #90 tabs 09/06/24 mcg tablet (Thera) Allergies Allergy/AdvReac Type Severity Reaction Status Date / Time No Known Allergies Allergy Verified 09/04/24 06:40 Review of Systems Const: Denies: fever(s) or chills Card: Denies: chest pain Resp: Denies: dyspnea GI: Denies: abdominal pain Skin/Breast: Denies: rash PFSH ED PFSH: Medical History Anxiety and depression Alcohol withdrawal -Long history of chronic alcohol abuse; EtOH of 138 on admission -Very high risk for withdrawal, currently delirious; has prior hx of DTs, withdrawal seizures -Continue scheduled Librium, CIWA protocol; will discontinue Librium due to noted somnolence this morning -Continue multivitamins, thiamine, folic acid daily -tolerating oral intake without difficulty; d/c IVF hydration -Fall/aspiration/seizure precautions -continues to protect his airway, no need for supplemental oxygen; continue to close monitoring of respiratory status -VSS; continue to monitor BPH (benign prostatic hyperplasia) Hypertension GERD (gastroesophageal reflux disease) Chronic back pain Surgical History History of back surgery Social History Smoking and tobacco/nicotine status: unknown if used tobacco/nicotine Alcohol intake: current Alcohol intake frequency: 3 or more drinks per day Alcohol type: hard liquor Substance/Drug Use: never Physical Exam Const: GENERAL APPEARANCE: lethargic ORIENTATION/CONSCIOUSNESS: Yes oriented to person, Yes oriented to place and Yes lethargic; not oriented to time HENMT: COMMON NORMALS: normocephalic, atraumatic and hearing grossly normal bilaterally HEAD & SCALP: normocephalic and atraumatic Resp: COMMON NORMALS: normal respiratory effort, No retractions, No use of accessory muscles and clear to auscultation bilaterally AUSCULTATION: clear to auscultation bilaterally Cardio: COMMON NORMALS: regular rate, regular rhythm and No murmurs present (Cardio) RATE: regular rate RHYTHM: regular rhythm GI: COMMON NORMALS: Soft to palpation and No hepatosplenomegaly present AUSCULTATION: Yes normoactive bowel sounds PALPATION: Yes Soft to palpation, No Tenderness to palpation present (GI), No Guarding due to palpation present (GI) and Yes No hepatosplenomegaly present Extremity: COMMON NORMALS: normal to inspection, capillary refill normal, no clubbing, cyanosis or edema, no calf tenderness and no pedal edema Neuro: SENSORIUM/ORIENTATION: Yes oriented to person, Yes oriented to place, No oriented to time and Yes lethargic Skin: COMMON NORMALS: no rashes or lesions noted GENERAL SKIN EXAM: no rashes or lesions noted Course Vital Signs: Vital signs: Vital Signs Pulse Rate 141 H 05/26/25 17:20 Respiratory Rate 28 H 05/26/25 17:20 Blood Pressure 113/96 05/26/25 17:20 Pulse Oximetry 94 05/26/25 17:20 Oxygen Delivery Me thod Room Air 05/26/25 13:07 MDM - Chest Pain Medical Decision Making Patient presented with A-fib with RVR with hypotension and signs of sepsis acute alcohol intoxication. He had been given Cardizem in the field was hypotensive when he arrived here we gave him a fluid bolus cultures started on antibiotics. We switched to amiodarone he ultimately did convert we titrated his norepinephrine back down he is stabilized now. Discussed with hospitalist will admit to the ICU. We have been able to decrease his amiodarone to 0.5. Discuss[address] with Dr. Mota orders written for ICU Medical Records I reviewed the patient's medical records. Lab Data I reviewed the patient's lab results. 05/26/25 13:18 05/26/25 13:18 Radiology Impressions Chest X-Ray 05/26/25 13:11 IMPRESSION: 1. High density mediastinal widening, indeterminate on radiograph. Consider CTA of the chest for characterization of the mediastinal vasculature. 2. Emphysematous lung changes. 3. Cardiomegaly. ADDENDUM: 05/26/25 1521 THIS REPORT CONTAINS FINDINGS THAT MAY BE CRITICAL TO PATIENT CARE. The findings were verbally communicated via telephone conference with MARK ANTHONY Figueredo at 3:19 PM PULP AND PAPER TESTER on 05/26/2025. The findings were acknowledged and understood. Head CT 05/26/25 13:15 IMPRESSION: No acute intracranial abnormality. Chest CTA 05/26/25 15:19 IMPRESSION: 1. No pulmonary embolism. 2. No evidence of aortic dissection, or aneurysmal dilatation. 3. Dilated pulmonary arteries which can be seen with pulmonary arterial hypertension. COMMENTS: The presence of pulmonary emphysema on CT is an independent risk factor for lung cancer. In the absence of a history or active diagnosis of lung cancer, it is recommended that this patient with emphysema be evaluated for enrollment in a low dose CT lung cancer screening program. Laboratory Results WBC 10.69 10^3/uL (3.29-11.43) 05/26/25 13:18 RBC 5.46 10^6/uL (3.85-5.65) 05/26/25 13:18 Hgb 13.40 g/dL (11.27-16.99) 05/26/25 13:18 Hct 44.5 % (37-53) 05/26/25 13:18 MCV 81.5 fl (82-101) L 05/26/25 13:18 MCH 24.5 pg (27-33) L 05/26/25 13:18 MCHC 30.1 g/dL (30-55) 05/26/25 13:18 RDW 17.5 % (12.1-15.1) H 05/26/25 13:18 Plt Count 295 10^3/cmm (157-399) 05/26/25 13:18 MPV 9.2 fL (7.4-10.4) 05/26/25 13:18 Neut % (Auto) 55.1 % 05/26/25 13:18 Lymph % (Auto) 36.7 % 05/26/25 13:18 [place] % (Auto) 7.0 % 05/26/25 13:18 Eos % (Auto) 0.5 % 05/26/25 13:18 Baso % (Auto) 0.4 % 05/26/25 13:18 Neut # (Auto) 5.90 10^3/uL (1.8-7.7) 05/26/25 13:18 Lymph # (Auto) 3.9 10^3/uL (0.8-4.8) 05/26/25 13:18 [place] # (Auto) 0.8 10^3/uL (0.2-0.9) 05/26/25 13:18 Eos # (Auto) 0.1 10^3/uL (0.0-0.8) 05/26/25 13:18 Baso # (Auto) 0.0 10^3/uL (0.0-0.1) 05/26/25 13:18 Nucleated RBC % (auto) 0 % 05/26/25 13:18 Nucleated RBCs # 0.0 /100WBC 05/26/25 13:18 PT 13.50 SECONDS (12.1-14.9) 05/26/25 13:18 INR 0.96 (0.8-1.2) 05/26/25 13:18 Specimen Type Arterial 05/26/25 13:20 Sample Site Brachial, left 05/26/25 13:20 ABG pH 7.36 (7.35-7.45) 05/26/25 13:20 ABG pCO2 38.5 mmHg (35-45) 05/26/25 13:20 ABG pO2 65.3 mmHg (80.0-100.0) L 05/26/25 13:20 ABG PO2/FiO2 Ratio 233 05/26/25 13:20 ABG HCO3 21.7 mmol/L (22-26) L 05/26/25 13:20 ABG O2 Saturation 89.6 05/26/25 13:20 ABG Base Excess -3.4 mmol/L (-2.0-2.0) L 05/26/25 13:20 Kevin Test N/a 05/26/25 13:20 A-a O2 Gradient 11.4 mmHg (5-10) H 05/26/25 13:20 Hematocrit 38.5 % (42-52) L 05/26/25 13:20 Hgb O2 Saturation 87.1 % (95-100) L 05/26/25 13:20 Carboxyhemoglobin 1.8 %THgb (0.4-20.1) 05/26/25 13:20 Methemoglobin 0.9 % (0.4-1.5) 05/26/25 13:20 Total Hemoglobin 12.6 g/dL (14-18) L 05/26/25 13:20 Sodium 147.0 mmol/L (131-143) H 05/26/25 13:20 Potassium 3.2 mmol/L (3.5-5.0) L 05/26/25 13:20 Glucose 114.0 mg/dL (70-115) 05/26/25 13:20 Ionized Calcium 1.2 mmol/L (1.1-1.4) 05/26/25 13:20 O2 Delivery Device Nc 05/26/25 13:20 O2 Liters/Min 2.0 % 05/26/25 13:20 FiO2 28.0 % 05/26/25 13:20 Staffing Branch Manager ID Amh 05/26/25 13:20 Sodium 142 mmol/L (136-145) 05/26/25 13:18 Potassium 3.6 mmol/L (3.5-5.1) 05/26/25 13:18 Chloride 107 mmol/L (98-107) 05/26/25 13:18 Carbon Dioxide 19 mmol/L (22-29) L 05/26/25 13:18 Anion Gap 19.6 (5-19) H 05/26/25 13:18 BUN 14 mg/dL (8-23) 05/26/25 13:18 Creatinine 1.5 mg/dL (0.7-1.2) H 05/26/25 13:18 GFR Calculation Not Reportable 05/26/25 13:18 Glucose 119 mg/dL (65-115) H 05/26/25 13:18 POC Glucose 178 mg/dL (70-110) H 05/26/25 13:15 Estimat Average Glucose 103 05/26/25 13:18 Hemoglobin A1c 5.2 % (4.0-6.0) 05/26/25 13:18 Calculated Osmolality 296 mOsm/kg (285-295) H 05/26/25 13:18 Lactic Acid 4.3 mmol/L (0.5-2.2) H* 05/26/25 13:18 Lactic Acid (Sepsis) 3.2 mmol/L (0.5-2.2) H 05/26/25 15:37 Calcium 8.5 mg/dL (8.5-10.5) 05/26/25 13:18 Iron 71 ug/dL (59-158) 05/26/25 13:18 TIBC 367 mcg/dl 05/26/25 13:18 % Saturation 19.3 % (20-50) L 05/26/25 13:18 Unsat Iron Binding 296 ug/dL (112-347) 05/26/25 13:18 Total Bilirubin 0.4 mg/dL (0.15-1.2) 05/26/25 13:18 AST 38 U/L (0-40) 05/26/25 13:18 ALT 20 U/L (0-41) 05/26/25 13:18 Alkaline Phosphatase 100 U/L (40-130) 05/26/25 13:18 Ammonia 26 umol/L (16-60) 05/26/25 13:18 Troponin T Baseline 44 ng/L (0-15) H 05/26/25 13:18 Troponin T 120 Minute 111.9 ng/L (0-15) H 05/26/25 15:37 Delta Troponin T 67.9 ABS# (0-10) H* 05/26/25 15:37 Total Protein 6.7 g/dL (6.6-8.7) 05/26/25 13:18 Albumin 3.8 g/dL (3.5-5.2) 05/26/25 13:18 Globulin 2.9 g/dL (1.3-4.6) 05/26/25 13:18 Lipase 48 U/L (13-60) 05/26/25 13:18 Procalcitonin 0.21 ng/mL (0-0.5) 05/26/25 13:18 TSH 3.92 uIU/mL (0.27-4.20) 05/26/25 13:18 Salicylates < 0.3 mg/dL (3-10) L 05/26/25 13:18 Acetaminophen < 5.0 ug/mL (10-30) L 05/26/25 13:18 Ethyl Alcohol 195 mg/dL (0-10) H 05/26/25 13:18 Serum Ketones Negative (Negative) 05/26/25 13:18 All radiology interpretation(s) finalized by discharge Critical Care Time Critical Care Time: Critical Care Time: Yes Total Critical Care Time: 45 Attestation: The high probability of a clinically significant, sudden or life threatening deterioration of the patient's [cardiovascular respiratory renal] system(s) required my full and direct attention, intervention and personal management. The critical care time is as shown. This time is in addition to time spent performing any reported procedures but includes the following: [x] Data and vital sign review and interpretation [x] Patient assessment, examination and intervention [x] Documentation [x] Medication orders and management Discharge Plan Discharge Patient Disposition: Admitted As Inpatient Admit Provider: Ja Burns Clinical Impression: Intoxication, Atrial fibrillation with RVR, Elevated lactic acid level, Non-ST elevation DE (NSTEMI) Sepsis Qualifiers: Sepsis type: sepsis due to unspecified organism Sepsis acute organ dysfunction status: with acute organ dysfunction Severe sepsis acute organ dysfunction type: unspecified Severe sepsis shock status: with septic shock Qualified Code(s): A41.9 - Sepsis, unspecified organism Alcohol withdrawal Qualifiers: Complication of substance-induced condition: with delirium Qualified Code(s): F10.931 - Alcohol use, unspecified with withdrawal delirium Condition: Stable Coding Level of Care Code ED Cyber Systems Operations Specialist for Chg Fwd Heart Score HEART Score Components History: Moderately Suspicious EKG: Non-specific Changes Age: 65 or more yrs Risk Factors: >/=3 Risk Factors Troponin: Baseline Trop >45 ng/L HEART Score RESULT HEART Score: 8
[2025-05-26 13:24] LABS: Hematocrit 44.5 % (37-53); Hemoglobin 13.40 g/dL (11.27-16.99); Mean Corpuscular HGB Conc 30.1 g/dL (30-55); Mean Corpuscular Hemoglobin 24.5 pg (27-33); Mean Corpuscular Volume 81.5 fl (82-101); Nucleated Red Blood Cells % 0 %; Platelet Count 295 10^3/cmm (157-399); Red Blood Count 5.46 10^6/uL (3.85-5.65); White Blood Count 10.69 10^3/uL (3.29-11.43)
[2025-05-26 13:31] LABS: ABG PCO2 38.5 mmHg (35-45); ABG PH Result 7.36 (7.35-7.45); Alveolar-Arterial Oxygen Gradi 11.4 mmHg (5-10); Arterial Blood Gas Hematocrit 38.5 % (42-52); Blood Gas LPM 2.0 %; Blood Gas Operator Identificat AMH; Blood Gas Sample Site Brachial, left; Blood Gas Sample Type Arterial; Carboxyhemoglobin 1.8 %THgb (0.4-20.1); Glucose Level-ABG 114.0 mg/dL (70-115); HCO3 ABG 21.7 mmol/L (22-26); Ionized Calcium Level - ABG 1.2 mmol/L (1.1-1.4); Methemoglobin 0.9 % (0.4-1.5); Oxygen Saturation ABG 89.6; PO2 ABG 65.3 mmHg (80.0-100.0); PO2 FiO2 Ratio Arterial Blood 233; Potassium Level - ABG 3.2 mmol/L (3.5-5.0); Sodium Level - ABG 147.0 mmol/L (131-143)
[2025-05-26 13:36] LABS: Ketone (Acetest) Serum Negative (Negative)
[2025-05-26 13:39] LABS: Troponin(5th) Baseline 44 ng/L (0-15)
[2025-05-26 13:43] LABS: Ammonia 26 umol/L (16-60)
[2025-05-26 13:44] LABS: Alanine Aminotransferase 20 U/L (0-41); Albumin Level 3.8 g/dL (3.5-5.2); Alcohol Level 195 mg/dL (0-10); Alkaline Phosphatase 100 U/L (40-130); Anion Gap 19.6 (5-19); Aspartate Amino Transferase 38 U/L (0-40); Blood Urea Nitrogen 14 mg/dL (8-23); Calcium 8.5 mg/dL (8.5-10.5); Carbon Dioxide 19 mmol/L (22-29); Chloride 107 mmol/L (98-107); Globulin 2.9 g/dL (1.3-4.6); Glucose 119 mg/dL (65-115); Lactic Sepsis W/Reflex 4.3 mmol/L (0.5-2.2); Lipase 48 U/L (13-60); Osmolality Calculated 296 mOsm/kg (285-295); Potassium 3.6 mmol/L (3.5-5.1); Sodium 142 mmol/L (136-145); Total Protein 6.7 g/dL (6.6-8.7)
[2025-05-26 13:45] LABS: Acetaminophen < 5.0 ug/mL (10-30); Salicylate < 0.3 mg/dL (3-10)
[2025-05-26] MEDS: sodium chloride 0.9% 2,394.96 ML 2394.96 ML IV (13:45)
[2025-05-26] MEDS: norepinephrine 4 MG/250 ML BAG 15 MG IV ×2 (13:58→14:08)
[2025-05-26 14:04] LABS: Reflex Lactate Order REFLEX LACTIC ORDERD
[2025-05-26] MEDS: pantoprazole 40 mg SDV 80 MG IVP (14:07)
[2025-05-26] MEDS: piperacillin-tazobactam 3.375 GM in sodium chloride 0.9% (plus) 50 ML IV ×2 (14:08→20:16)
--- NOTE | 2025-05-26 14:33 | ECG_ITS ---
[facility] Test Date: 2025-05-26 Pat Name: Julio Mccann Department: Room: [facility] Gender: Male Broke Man: : 1950 Requested By: Mark Anthony Garcia Order Number: [id number] Eric MD: Mg Wilson M.D. Measurements Intervals [place] Rate: 136 P: 0 WA: 0 QRS: 15 QRSD: 106 T: 27 QT: 344 QTc: 518 Interpretive Statements ATRIAL FIBRILLATION WITH RAPID VENTRICULAR RESPONSE NONSPECIFIC ST & T-WAVE ABNORMALITY ABNORMAL RHYTHM ECG Compared to ECG 05/26/2025 13:11:57 No significant changes Electronically Signed On 05-26-2025 20:17:25 ASSEMBLY REPAIRER by Mg Wilson M.D. [email or web address]
[2025-05-26] MEDS: amiodarone 150 MG/100 ML PREMIX 400 MG IV (14:40)
[2025-05-26] MEDS: AMIODARONE HCL/D5W 900 MG/500 ML BAG 33.33 MG IV (14:57)
--- NOTE | 2025-05-26 15:19 | CTR_ITS ---
PROCEDURE INFORMATION: Exam: CTA Chest Without And With Contrast Exam date and time: 05/26/2025 4:09 PM Age: 74 years old Clinical indication: Pain; Chest pressure; Additional info: Widened mediastinum TECHNIQUE: Imaging protocol: Computed tomographic angiography of the chest without and with contrast. Exam focused on the arteries. 3D rendering (Not supervised by radiologist): MIP and/or 3D reconstructed images were created by the technologist. Radiation optimization: All CT scans at this facility use at least one of these dose optimization techniques: automated exposure control; mA and/or kV adjustment per patient size (includes targeted exams where dose is matched to clinical indication); or iterative reconstruction. Contrast material: OMNI 350; Contrast volume: 100 ml; Contrast route: INTRAVENOUS (IV); COMPARISON: CT angio chest PE protcl [id number] 09/04/2024 8:37 AM RADIATION DOSE METRICS: Total DLP (mGy-cm): 877.39 FINDINGS: Pulmonary arteries: Adequate visualization of the pulmonary arteries to the subsegmental level. No pulmonary embolism. Dilated pulmonary arteries which can be seen with pulmonary arterial hypertension are present. Aorta: Ascending aorta is normal in caliber. Ascending thoracic and descending thoracic aorta is normal size and caliber with subtle atherosclerotic calcified plaques. No evidence of dissection, or aneurysmal dilatation. Lungs: Predominantly upper lung centrilobular emphysema. Subpleural reticulations along the upper lungs. No suspicious lung nodules. Pleural spaces: Unremarkable. No pneumothorax. No pleural effusion. Heart: Unremarkable. No cardiomegaly. No pericardial effusion. Coronary arteries: Coronary artery calcifications present. Lymph nodes: Prominent mediastinal lymph nodes measuring up to 0.8 centimeters. Diaphragm: Small hiatal hernia, and a patulous esophagus. Bones/joints: Remote fractures along the posterior left lower ribs. Soft tissues: Unremarkable. CT/CT angio chest [id number] IMPRESSION: 1. No pulmonary embolism. 2. No evidence of aortic dissection, or aneurysmal dilatation. 3. Dilated pulmonary arteries which can be seen with pulmonary arterial hypertension. COMMENTS: The presence of pulmonary emphysema on CT is an independent risk factor for lung cancer. In the absence of a history or active diagnosis of lung cancer, it is recommended that this patient with emphysema be evaluated for enrollment in a low dose CT lung cancer screening program.
[2025-05-26 16:01] LABS: Lactic Acid level (Lactate) 3.2 mmol/L (0.5-2.2)
[2025-05-26] MEDS: iohexol 350 mg/mL 500 mL Btl (per mL) IV (16:18)
--- NOTE | 2025-05-26 16:55 | PM.HP ---
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 For the patient now in the ER he states he has been having chest pain central in nature since today morning associated with nausea. He consumes alcohol daily and consumed alcohol today as well. He states he does not remember being brought to the ER. He denies any nausea, vomiting, diarrhea, abdominal pain, headache, dizziness. Denies any difficulty in breathing. In the ER was found to be hypotensive. Started on sepsis bolus. As patient blood pressure did not improve even after sepsis bolus he was started on Levophed drip. Given A-fib with RVR he was started on amiodarone drip after which his heart rate improved. Review of Systems General: Reports: 10 or more systems reviewed and unremarkable except in HPI and below Const: Denies: fever(s), chills, body aches, change in appetite, change in weight, malaise, night sweats, diaphoresis, change in sleep pattern, daytime sleepiness or snoring Eyes: Denies: change in vision, blurry vision, photophobia, eye discomfort or eye discharge ENMT: Denies: throat pain, enlarged tonsils, hoarseness, mouth pain, oral sores, dry mouth, tinnitus, nasal congestion or post nasal drip Card: Denies: chest pain, palpitations, irregular heart rhythm, edema, swelling of feet/ankles, lightheadedness, syncope, pre-syncope, dyspnea on exertion, orthopnea, leg pain with exertion or acrocyanosis Resp: Denies: dyspnea, productive cough, non-productive cough, wheezing, stridor, pain on inspiration, change in phlegm color, hemoptysis or chest congestion GI: Denies: abdominal pain, nausea, vomiting, hematemesis, coffee ground emesis, dysphagia, heartburn, diarrhea, constipation, bloating, GI cramping, change in bowel habits, pain on defecation, hematochezia or melena : Denies: flank pain, difficulty urinating, dysuria, urinary frequency, urinary urgency, urinary hesitancy, urinary dribbling, difficulty starting urination, change in urine stream, nocturia or hematuria Musc: Denies: neck pain, back pain, extremity pain, joint pain, joint swelling, joint redness, joint stiffness or limited range of motion Neuro: Denies: headache(s), numbness in extremities, weakness in extremities, sensory changes, lack of coordination, difficulty walking, frequent falls, dizziness, vertigo, confusion, Slurred speech present, difficulty communicating thoughts or seizure-like activity Psych: Denies: anxiety, depression, mood swings, panic attacks, hopelessness or irritability Endo: Denies: polyuria, polydipsia, tired all the time, cold intolerance, excessive sweating, flushing or heat intolerance Tyshawn/Lymph: Denies: easy bruising or easy bleeding All/Imm: Denies: tongue swelling, facial swelling or acute wheezing Medications/Allergies Home Medications ?Medication ?Instructions ?Recorded ?Confirmed ?Last Taken ?Type albuterol sulfate 90 mcg/actuation 2 puff inhalation Q4H PRN 07/18/24 05/26/25 Unknown History aerosol inhaler Shortness Of Breath finasteride 5 mg tablet 5 mg PO DAILY 07/18/24 05/26/25 05/26/25 09:00 History gabapentin 600 mg tablet 600 mg PO BID 07/18/24 05/26/25 05/26/25 09:00 History levetiracetam 500 mg tablet 500 mg PO DAILY 07/18/24 05/26/25 05/26/25 09:00 History lisinopril 20 mg tablet 20 mg PO DAILY 07/18/24 05/26/25 05/26/25 09:00 History omeprazole 40 mg capsule,delayed 40 mg PO QAM 07/18/24 05/26/25 05/26/25 09:00 History release tamsulosin 0.4 mg capsule 0.4 mg PO BID 07/18/24 05/26/25 05/26/25 08:00 History testosterone cypionate 200 mg/mL 200 mg IM Q30D 07/18/24 05/26/25 Unknown History intramuscular oil trazodone 150 mg tablet 150 mg PO BEDTIME 07/18/24 05/26/25 05/25/25 History venlafaxine 75 mg capsule,extended 75 mg PO DAILY 07/18/24 05/26/25 05/26/25 08:00 History release 24 hr albuterol sulfate 2.5 mg/3 mL 2.5 mg inhalation Q4H 09/04/24 05/26/25 Unknown History (0.083 %) solution for nebulization multivitamin with folic acid 400 1 tab PO DAILY #90 tabs 09/06/24 05/26/25 Unknown Rx mcg tablet (Thera) diclofenac sodium 50 mg 50 mg PO BID 05/26/25 05/26/25 05/26/25 09:00 History tablet,delayed release fluticasone fur. 200 mcg-umeclid 1 ea inhalation DAILY 05/26/25 05/26/25 Unknown History 62.5 mcg-vilant 25 mcg inhalat.powder (Trelegy Ellipta) rosuvastatin 20 mg tablet 20 mg PO DAILY 05/26/25 05/26/25 05/26/25 09:00 History Allergies Allergy/AdvReac Type Severity Reaction Status Date / Time No Known Allergies Allergy Verified 09/04/24 06:40 PFSH Acute PFSH: Medical History (Updated 05/26/25 @ 17:46 by Mark Anthony Guevara DO) Anxiety and depression Alcohol withdrawal BPH (benign prostatic hyperplasia) Hypertension GERD (gastroesophageal reflux disease) Chronic back pain Surgical History History of back surgery Social History Smoking and tobacco/nicotine status: unknown if used tobacco/nicotine Alcohol intake: current Alcohol intake frequency: 3 or more drinks per day Alcohol type: hard liquor Substance/Drug Use: never Vitals/I&O/Wt Last Vital Signs Pulse 97 05/26/25 15:31 Resp 21 H 05/26/25 15:31 BP 85/65 05/26/25 15:31 Pulse Ox 94 05/26/25 15:31 O2 Del Method Room Air 05/26/25 13:07 05/26/25 05/26/25 05/26/25 06:59 14:59 22:59 Intake Total 274.25 / 274.25 61.25 / 335.50 Balance 274.25 / 274.25 61.25 / 335.50 Weight last 48 hrs Weight 79.832 kg Physical Exam Narrative: General: No acute distress, AO x3 HEENT: PERRLA, pupils bilaterally equal and reactive Chest: Normal vesicular breath sounds, no added sounds, equal good air entry bilaterally CVS: S1-S2 regular, no murmurs, no tachycardia, no gallops, no rubs Abdomen: Soft, nontender, no organomegaly, bowel sounds present Neuro: No focal deficits, no facial deformity, AO x3, power 5/5 in all limbs Data 05/26/25 13:18 05/26/25 13:18 A&P Assessment and plan 1. Shock: Cardiogenic versus septic. Check blood culture, urine culture, trend procalcitonin, urine bacterial antigen. Empirically start patient on IV vancomycin and Zosyn. Check MRSA swab. If MRSA swab negative will discontinue vancomycin. Oxygen supplementation keeping saturation over 90%. Continue with Levophed. Wean keeping mean arterial pressure over 65. Finish sepsis bolus. Banana bag afterwards. After that we will continue NS at 75 cc/h. Watch for fluid overload. 2. Atrial fibrillation with RVR: On presentation. Continue with amiodarone drip for now. 3. Non-ST elevation [place] (NSTEMI): Elevated troponin on admission. Delta 60 in 2 hours. Will continue to trend troponin for now. Check echocardiogram. Heparin drip for now. Aspirin 81 mg daily. Check A1c, lipid panel. If no regional wall motion abnormality and echocardiogram elevated troponin could be in setting of stress induced type II AL. 4. Acute kidney injury: Baseline creatinine normal. Currently 1.5. In setting of shock. Along with the use of diclofenac sodium and lisinopril at home. Check urinalysis, urine lites. Strict input output charting, daily weights. Medical reconciliation done for nephrotoxic drugs. Hold off on lisinopril. 5. Intoxication: Chronic alcohol abuse. Currently alcohol level more than 190. Does have history of alcohol withdrawal DTs. CIWA protocol. Banana bag. 6. Dehydration: 7. Elevated lactic acid level: Plan: Full code Clear liquid diet Protonix OPD prophylaxis Heparin drip will be sufficient for DVT prophylaxis PDMP PDMP Reviewed: Not Reviewed Attestations Medical Necessity Statement*: Admission for more than 2 midnights for manage of shock, A-fib with RVR, non-ST elevation [place] in a patient with chronic alcohol use, intoxication Critical Care Time: The high probability of a clinically significant, sudden or life threatening deterioration of the patient's [cardiology, pulmonary, ID] system(s) required my full and direct attention, intervention and personal management. The critical care time is as shown. This time is in addition to time spent performing any reported procedures but includes the following: [x] Data and vital sign review and interpretation [x] Patient assessment, examination and intervention [x] Documentation [x] Medication orders and management Critical Care Time (min): 70 Coding Level of Care Code Critical Care >/= 30 minutes Critical care time (in minutes): 70 The high probability of a clinically significant, sudden or life threatening deterioration, as referenced in this documentation, required my full and direct attention, intervention and personal management. The critical care time shown is in addition to time spent performing any reported separately billable procedures and includes the following: [x] Data and vital sign review and interpretation [x] Patient assessment, examination and intervention [x] Medication orders and management [x] Patient/Family updates as able [x] Care Coordination and Documentation. Diagnoses Shock R57.9 Atrial fibrillation with RVR I48.91 Non-ST elevation AL (NSTEMI) I21.4 Acute kidney injury N17.9 Intoxication Dehydration E86.0 Elevated lactic acid level R79.89
--- NOTE | 2025-05-26 17:01 | ECG_ITS ---
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 Measurements Intervals [place] Rate: 153 P: 0 ID: 0 QRS: 15 QRSD: 88 T: 27 QT: 296 QTc: 472 Interpretive Statements ATRIAL FIBRILLATION WITH RAPID VENTRICULAR RESPONSE NONSPECIFIC ST & T-WAVE ABNORMALITY CRITICAL TEST RESULT Compared to ECG 05/26/2025 13:11:57 No significant changes Electronically Signed On 05-26-2025 20:16:41 BULB WEEDER by Mg Wilson M.D. [email or web address] [id number]
[2025-05-26 17:14] LABS: INR 0.96 (0.8-1.2); Prothrombin Time 13.50 SECONDS (12.1-14.9)
[2025-05-26 17:23] LABS: Estmated Average Glucose 103; Hemoglobin A1C 5.2 % (4.0-6.0)
[2025-05-26 17:28] LABS: Procalcitonin 0.21 ng/mL (0-0.5)
[2025-05-26 17:31] LABS: Iron 71 ug/dL (59-158); Thyroid Stimulating Hormone 3.92 uIU/mL (0.27-4.20); Total Iron Binding Capacity 367 mcg/dl; Unsaturated Iron Binding 296 ug/dL (112-347)
--- NOTE | 2025-05-26 18:00 | CTR_ITS ---
PROCEDURE INFORMATION: Exam: CT Abdomen And Pelvis Without Contrast Exam date and time: 05/26/2025 6:31 PM Age: 74 years old Clinical indication: Other: Septic shock TECHNIQUE: Imaging protocol: Computed tomography of the abdomen and pelvis without contrast. Radiation optimization: All CT scans at this facility use at least one of these dose optimization techniques: automated exposure control; mA and/or kV adjustment per patient size (includes targeted exams where dose is matched to clinical indication); or iterative reconstruction. COMPARISON: [place] [id number] 08/31/2019 4:06 PM RADIATION DOSE METRICS: Total DLP (mGy-cm): 737.82 FINDINGS: Tubes, catheters and devices: A balloon bladder catheter is present. Esophagus: Small hiatal hernia, distal fluid-filled patulous esophagus. Liver: There is a diffuse decrease in hepatic parenchymal density, consistent with fatty infiltration. Gallbladder and biliary ducts: Normal. No calcified stones. No ductal dilation. Pancreas: Normal. No ductal dilation. Spleen: Normal. No splenomegaly. Adrenal glands: Normal. No mass. Kidneys and ureters: Normal. No hydronephrosis. Stomach and bowel: Stomach, small bowel, and large bowel are nondilated. Scattered colonic diverticula without any evidence of acute diverticulitis. Appendix: No evidence of appendicitis. Intraperitoneal space: Unremarkable. No free air. No significant fluid collection. Vasculature: Scattered calcified atherosclerotic plaques of the abdominal aorta and iliac arteries without significant stenosis. Lymph nodes: Unremarkable. No enlarged lymph nodes. Urinary bladder: Unremarkable as visualized. Reproductive: Unremarkable as visualized. Bones/joints: Unremarkable. No acute fracture. Soft tissues: Unremarkable. CT/CT abdomen pelvis wo con [id number] IMPRESSION: 1. No acute intra-abdominal findings. 2. Diffuse hepatic steatosis. 3. Diverticulosis without any evidence of acute diverticulitis.
[2025-05-26] MEDS: heparin drip 25,000 UNIT/500 ML PREMIX 22 UNIT IV (18:25)
--- NOTE | 2025-05-26 19:12 | PC.NURSE ---
Patient arrived to ICU 3 at 1840. Patient heparin drip at 22/hr, amio at 0.5, and leophed paused. Patient alert and oriented. Oriented to room. Call light in reach.
[2025-05-26] MEDS: morphine 4 mg/mL SDV 1 mL 2 MG IVP (19:26)
[2025-05-26] MEDS: LORazepam 2 mg/mL INJ 1 mL IVP (19:27)
[2025-05-26 19:41] LABS: Troponin 5 6HR 238.7 ng/L (0-15); Troponin 5 6HR Delta 194.7 ng/L (0-12)
[2025-05-26] MEDS: thiamine 100 mg/mL 2mL SDV IM (20:17)
[2025-05-26 20:33] LABS: MRSA PCR OZH (swab) NOT DETECTED (Negative)
--- NOTE | 2025-05-26 20:53 | PC.NURSE ---
1900 banana bag not available for administration. Not all medications available. ranch hand supervisor notified. Provider notified. gave orders to reschedule to 05/27/25.
--- NOTE | 2025-05-26 21:18 | PC.NURSE ---
Spoke with Dr. Bolanos regarding banana bag, some components unavailable. Stated it would be ok to wait til morning to give.
[2025-05-26 23:09] LABS: Vitamin B12 338 pg/mL (232-1245)
[2025-05-27] VITALS (65 sets, daily range): BP systolic 88–176; BP diastolic 49–88; PULSE 53–120; RESP 12–32; TEMP 36.6–36.9; O2SAT 88–100
[2025-05-27 00:12] LABS: Partial Thromboplastin Time 53.0 SECONDS (23.9-36.7)
--- NOTE | 2025-05-27 01:03 | PC.NURSE ---
PTT resulted. Heparin drip adjusted per protocol. Order placed to redraw q6h PTT per protocol.
[2025-05-27] MEDS: piperacillin-tazobactam 3.375 GM in sodium chloride 0.9% (plus) 50 ML IV ×3 (04:25→21:05)
[2025-05-27] MEDS: pantoprazole 40 mg SDV IVP ×2 (04:26→17:19)
[2025-05-27] MEDS: venlafaxine ER (24HR) 75 mg Capsule PO (04:26)
[2025-05-27] MEDS: multivitamin therapeutic Tablet 1 TAB PO (04:27)
[2025-05-27 04:36] LABS: Hematocrit 34.7 % (37-53); Hemoglobin 10.30 g/dL (11.27-16.99); Mean Corpuscular HGB Conc 29.7 g/dL (30-55); Mean Corpuscular Hemoglobin 24.4 pg (27-33); Mean Corpuscular Volume 82.2 fl (82-101); Nucleated Red Blood Cells % 0 %; Platelet Count 201 10^3/cmm (157-399); Red Blood Count 4.22 10^6/uL (3.85-5.65); White Blood Count 8.95 10^3/uL (3.29-11.43)
[2025-05-27 04:55] LABS: Procalcitonin 0.12 ng/mL (0-0.5)
[2025-05-27 04:56] LABS: Alanine Aminotransferase 17 U/L (0-41); Albumin Level 3.0 g/dL (3.5-5.2); Alkaline Phosphatase 80 U/L (40-130); Anion Gap 14.0 (5-19); Aspartate Amino Transferase 45 U/L (0-40); Blood Urea Nitrogen 15 mg/dL (8-23); Calcium 7.9 mg/dL (8.5-10.5); Carbon Dioxide 21 mmol/L (22-29); Chloride 110 mmol/L (98-107); Globulin 2.7 g/dL (1.3-4.6); Glucose 94 mg/dL (65-115); Magnesium 1.6 mg/dL (1.7-2.3); Osmolality Calculated 293 mOsm/kg (285-295); Potassium 4.0 mmol/L (3.5-5.1); Sodium 141 mmol/L (136-145); Total Protein 5.7 g/dL (6.6-8.7)
[2025-05-27 04:57] LABS: Cholesterol 145 mg/dL (0-200); HDL Cholesterol 36 mg/dL (60-100); Triglycerides 105 mg/dL (0-150)
[2025-05-27] MEDS: vancomycin 500 MG in sodium chloride 0.9% (plus) 100 ML 200 MG IV (05:52)
[2025-05-27 08:19] LABS: Partial Thromboplastin Time 79.9 SECONDS (23.9-36.7)
[2025-05-27] MEDS: HYDROcodone-acetaminophen 5-325 mg Tablet 1 TAB PO ×3 (09:03→17:18)
--- NOTE | 2025-05-27 11:35 | P.PN_ITS ---
Subjective 2 Subjective: Overnight Levophed was turned off as mean arterial pressure was maintained. Currently on amiodarone 0.5 with heart rate running in 60s while patient is resting. Sinus rhythm. Patient states he is feeling better. Denies any nausea, vomiting, headache or chest pain. Did receive 1 dose of Ativan for alcohol withdrawal. Vitals/I&O/Wt Last Vital Signs Temp 97.8 F 05/27/25 01:38 Pulse 83 05/27/25 10:00 Resp 24 H 05/27/25 10:00 BP 114/66 05/27/25 10:00 Pulse Ox 99 05/27/25 10:00 O2 Del Method Room Air 05/27/25 10:00 05/26/25 05/27/25 05/27/25 22:59 06:59 14:59 Intake Total 3626.507 / 3900.757 1327.15 / 5227.907 1090.760 / 1090.760 Output Total 900 / 900 Balance 3626.507 / 3900.757 427.15 / 4327.907 1090.760 / 1090.760 Weight last 48 hrs Weight 79.7 kg Weight 79.82 kg Weight 79.832 kg Physical Exam 2 Narrative: General: No acute distress, AO x3 HEENT: PERRLA, pupils bilaterally equal and reactive Chest: Normal vesicular breath sounds, no added sounds, equal good air entry bilaterally CVS: S1-S2 regular, no murmurs, no tachycardia, no gallops, no rubs Abdomen: Soft, nontender, no organomegaly, bowel sounds present Neuro: No focal deficits, no facial deformity, AO x3, power 5/5 in all limbs Data 05/27/25 03:47 05/27/25 03:47 A&P Assessment and plan 1. Shock: Cardiogenic versus septic. Follow-up blood culture, urine culture, appreciate trend procalcitonin, negative urine bacterial antigen. Continue with IV Zosyn. MRSA swab negative. Discontinue vancomycin. Oxygen supplementation keeping saturation over 90%. Maintain mean arterial pressure over 65. Discontinue fluids. Encourage oral intake. 2. Atrial fibrillation with RVR: High concerns for paroxysmal A-fib. Discontinue amiodarone. Switch to metoprolol 12.5 mg twice daily. If has frequent episodes of A-fib with RVR will discuss with the patient regarding anticoagulation and start on high-dose amiodarone for loading. Continue with heparin drip for now. Telemonitoring. 3. Non-ST elevation [place] (NSTEMI): Appreciate troponin cycle. Echocardiogram pending. Continue with heparin drip. Aspirin 81 mg daily, atorvastatin 20 mg daily. Appreciate A1c, lipid panel. Depending on the echocardiogram will plan for Lexiscan stress test versus cardiac angiogram. 4. Acute kidney injury: Resolved. Continue to monitor intake and output. Strict input output charting, daily weights. Medical reconciliation done for nephrotoxic drugs. Hold off on lisinopril. 5. Intoxication: Chronic alcohol abuse. Currently alcohol level more than 190. Does have history of alcohol withdrawal DTs. [place] protocol. Banana bag. 6. Dehydration: 7. Elevated lactic acid level: Plan: Full code Advance to cardiac diet. Protonix for PUD prophylaxis Heparin drip will be sufficient for DVT prophylaxis PDMP PDMP Reviewed: Not Reviewed Attestations 2 Medical Necessity Statement*: Requires further hospitalization for management of resolving shock, non-ST elevation [place], A-fib with RVR, acute kidney injury as if patient requires further ACS workup Diagnoses Shock R57.9 Atrial fibrillation with RVR I48.91 Non-ST elevation [place] (NSTEMI) I21.4 Acute kidney injury N17.9 Intoxication Dehydration E86.0 Elevated lactic acid level R79.89
--- NOTE | 2025-05-27 14:22 | ECG_ITS ---
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 Interpretive Statements LEXISCAN SESTAMIBI STRESS TEST Procedure: At the baseline, the blood pressure was 204/103 mmHg with a heart rate of 75 bpm. The electrocardiogram showed normal sinus rhythm, normal axis with normal ST and T's. The Lexiscan was infused over a period of 20 seconds. A total of 0.4 mg of Lexiscan was infused. The stress phase was continued for a total of 5 minutes. Heart rate was at the end of stress phase was 83 bpm and a blood pressure of 163/74 mmHg. The EKG at the peak infusion revealed normal sinus rhythm with no significant ST-T wave changes. Sestamibi was injected 20 seconds after the Lexiscan infusion. Blood pressure at the end of recovery phase was 160/73 mmHg with a heart rate of 82 bpm. Conclusion: 1. Normal EKG response to Lexiscan infusion 2. No Lexiscan induced chest pain or cardiac arrhythmia. 3. Normal blood pressure and heart rate response. 4. Sestamibi/sestamibi perfusion scan pending; see separate report. Electronically Signed On 06-11-2025 10:44:21 [employer] by Joey Johnson M.D. [email or web address] [id number]
[2025-05-27 14:35] LABS: Partial Thromboplastin Time 68.7 SECONDS (23.9-36.7)
--- NOTE | 2025-05-27 16:04 | USCV_ITS ---
Ramy Julio Age: 74 Gender: M : 1950 Exam Date: 05/27/2025 09:01 Ordering Phys: Mark Anthony Guevara DO Technologist: Exam Location: [facility] – [place] Indication: sob ef BP: 117 / 73 HR: 72 Rhythm: Sinus Technical Quality: MEASUREMENTS (Male / Female) Normal Values 2D ECHO LV Diastolic Diameter PLAX 4.4 cm 4.2 - 5.9 / 3.9 - 5.3 cm IVS Diastolic Thickness 1.3 cm 0.6 - 1.0 / 0.6 - 0.9 cm IVS Systolic Thickness 1.6 cm LVPW Diastolic Thickness 1.3 cm 0.6 - 1.0 / 0.6 - 0.9 cm LVPW Systolic Thickness 1.7 cm LVOT Diameter 2.6 cm LV Ejection Fraction 2D Teich 66.0 % LV Ejection Fraction MOD 4C 62.4 % LV Ejection Fraction MOD 2C 68.9 % LV Ejection Fraction 2C AL 68.7 % LA Diameter 3.9 cm RA Systolic Volume 4C AL 38.8 ml RA Systolic Volume 4C MOD 36.3 ml Aorta at Sinotubular Diameter 3.6 cm IVC Diameter 2.0 cm M-MODE LA Ao Ratio MM 1.2 AV Cusp Separation MM 2.5 cm DOPPLER AV Peak Velocity 160.0 cm/s LVOT Peak Velocity 94.0 cm/s AV Area Cont Eq vti 3.6 cm squared AV Area Cont Eq pk 3.2 cm squared MV Peak Velocity 158.0 cm/s MV Area PHT 3.1 cm squared Mitral E to A Ratio 0.9 TR Peak Velocity 173.0 cm/s TR Peak Gradient 12.0 mmHg TV Peak E Velocity 74.0 cm/s PV Peak Velocity 98.0 cm/s FINDINGS Left Ventricle Normal left ventricular size and systolic function, EF 60-65%. No regional wall motion abnormalities. Right Ventricle Normal in size and function Right Atrium Normal in size Left Atrium Normal in size IA Septum Grossly normal Mitral Valve Moderate mitral annular calcification. Mild mitral stenosis. Mean gradient across mitral valve of 4.8 mmHg Aortic Valve Structurally normal aortic valve. No significant stenosis or regurgitation. Tricuspid Valve Mild tricuspid regurgitation. Pulmonary artery systolic pressure is normal. Pulmonic Valve Not well visualized Pericardium Normal Aorta Normal in size IVC Not well visualized CONCLUSIONS LV systolic function is normal with EF of 60-65% Mild mitral stenosis Mild tricuspid regurgitation. Joey Johnson MD (Electronically Signed) Final Date: 27 May 2025 20:38 S
[2025-05-27] MEDS: heparin drip 25,000 UNIT/500 ML PREMIX 22 UNIT IV (17:17)
--- NOTE | 2025-05-27 17:36 | PC.NURSE ---
Carter placed in ED this admission removed. Catheter intact.
[2025-05-27 22:50] LABS: Partial Thromboplastin Time 45.3 SECONDS (23.9-36.7)
[2025-05-28] VITALS (34 sets, daily range): BP systolic 137–197; BP diastolic 73–103; PULSE 56–83; RESP 13–23; TEMP 36.2–36.6; O2SAT 90–96
[2025-05-28] MEDS: HYDROcodone-acetaminophen 5-325 mg Tablet 1 TAB PO ×3 (01:10→14:57)
[2025-05-28] MEDS: piperacillin-tazobactam 3.375 GM in sodium chloride 0.9% (plus) 50 ML IV ×2 (04:32→12:43)
[2025-05-28] MEDS: pantoprazole 40 mg SDV IVP (04:35)
[2025-05-28] MEDS: multivitamin therapeutic Tablet 1 TAB PO (04:35)
[2025-05-28] MEDS: venlafaxine ER (24HR) 75 mg Capsule PO (04:35)
[2025-05-28 05:03] LABS: Hematocrit 34.1 % (37-53); Hemoglobin 10.10 g/dL (11.27-16.99); Mean Corpuscular HGB Conc 29.6 g/dL (30-55); Mean Corpuscular Hemoglobin 24.8 pg (27-33); Mean Corpuscular Volume 83.6 fl (82-101); Nucleated Red Blood Cells % 0 %; Platelet Count 157 10^3/cmm (157-399); Red Blood Count 4.08 10^6/uL (3.85-5.65); White Blood Count 8.00 10^3/uL (3.29-11.43)
[2025-05-28 05:23] LABS: Alanine Aminotransferase 15 U/L (0-41); Albumin Level 3.0 g/dL (3.5-5.2); Alkaline Phosphatase 83 U/L (40-130); Anion Gap 13.2 (5-19); Aspartate Amino Transferase 32 U/L (0-40); Blood Urea Nitrogen 18 mg/dL (8-23); Calcium 8.3 mg/dL (8.5-10.5); Carbon Dioxide 21 mmol/L (22-29); Chloride 110 mmol/L (98-107); Globulin 2.7 g/dL (1.3-4.6); Glucose 82 mg/dL (65-115); Magnesium 1.7 mg/dL (1.7-2.3); Osmolality Calculated 291 mOsm/kg (285-295); Potassium 4.2 mmol/L (3.5-5.1); Sodium 140 mmol/L (136-145); Total Protein 5.7 g/dL (6.6-8.7)
--- NOTE | 2025-05-28 07:52 | PC.NURSE ---
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
--- NOTE | 2025-05-28 13:04 | PM.DCS ---
Discharge Providers Date of Admission: 05/26/25 16:53 Date of Discharge: May 28, 2025 Attending Provider at Admission: Ja Burns MD Attending Provider at Discharge: Ja Burns MD Primary Care Provider: Howard Kelly DO Diagnoses at Discharge Discharge Diagnosis 1. Shock: 2. Atrial fibrillation with RVR: 3. Non-ST elevation CA (NSTEMI): 4. Acute kidney injury: 5. Intoxication: 6. Dehydration: 7. 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 For the patient now in the ER he states he has been having chest pain central in nature since today morning associated with nausea. He consumes alcohol daily and consumed alcohol today as well. He states he does not remember being brought to the ER. He denies any nausea, vomiting, diarrhea, abdominal pain, headache, dizziness. Denies any difficulty in breathing. In the ER was found to be hypotensive. Started on sepsis bolus. As patient blood pressure did not improve even after sepsis bolus he was started on Levophed drip. Given A-fib with RVR he was started on amiodarone drip after which his heart rate improved. Patient was admitted to the ICU further evaluation and management of shock requiring Levophed drip. On admission he was in A-fib with RVR for which he was started on amiodarone drip. His A-fib with RVR is most likely paroxysmal as he did not have any further episode of A-fib while being in hospital. His amiodarone drip was transitioned to oral metoprolol and he has remained in normal sinus rhythm. Patient's shock improved after IV hydration and has not required any kind of vasopressor over last 24 to 36 hours. On admission there was a concern for non-ST elevation CA due to elevated troponin for which echocardiogram was done which showed normal EF without regional wall motion banality. He underwent Lexiscan stress test which were negative for active ischemia. It is believed his symptoms were most likely in setting of dehydration because of excessive alcohol use. He has been advised for a event monitor as an outpatient to monitor for any further A-fib. Physical Exam Narrative: General: No acute distress, AO x3 HEENT: PERRLA, pupils bilaterally equal and reactive Chest: Normal vesicular breath sounds, no added sounds, equal good air entry bilaterally CVS: S1-S2 regular, no murmurs, no tachycardia, no gallops, no rubs Abdomen: Soft, nontender, no organomegaly, bowel sounds present Neuro: No focal deficits, no facial deformity, AO x3, power 5/5 in all limbs Discharge Data Studies Completed and Pending Completed Studies During Hospitalization Category Date Time Status CT abdomen pelvis wo con [id number] Stat Cat Scan 05/26/25 18:[address] head wo con* [id number] Stat Cat Scan 05/26/25 13:15 Completed CTA thoracic [CT angio chest [id number]] Stat Cat Scan 05/26/25 15:19 Completed XR chest 1V portable [id number] Stat Exams 05/26/25 13:11 Completed NM lorenzo perf SPECT r/s* [id number] Routine Nuc Med 05/28/25 14:22 Completed CV. echo complete* [id number] Stat Ultrasound 05/27/25 16:04 Completed Pending at discharge Category Date Time Status Sestamibi Stress Test Request Routine Exams 05/27/25 14:22 Ordered Blood Culture Stat Lab 05/26/25 13:47 Received Complete Blood Count w/Auto AM LABS Lab 05/29/25 04:00 Ordered Comprehensive Metabolic Panel AM LABS Lab 05/29/25 04:00 Ordered Magnesium AM LABS Lab 05/29/25 04:00 Ordered Phosphorus AM LABS Lab 05/29/25 04:00 Ordered Radiology Impressions Chest X-Ray 05/26/25 13:11 IMPRESSION: 1. High density mediastinal widening, indeterminate on radiograph. Consider CTA of the chest for characterization of the mediastinal vasculature. 2. Emphysematous lung changes. 3. Cardiomegaly. ADDENDUM: 05/26/25 1521 THIS REPORT CONTAINS FINDINGS THAT MAY BE CRITICAL TO PATIENT CARE. The findings were verbally communicated via telephone conference with TYSON Figueredo at 3:19 PM DIGITAL MARKETING ANALYST on 05/26/2025. The findings were acknowledged and understood. Head CT 05/26/25 13:15 IMPRESSION: No acute intracranial abnormality. Chest CTA 05/26/25 15:19 IMPRESSION: 1. No pulmonary embolism. 2. No evidence of aortic dissection, or aneurysmal dilatation. 3. Dilated pulmonary arteries which can be seen with pulmonary arterial hypertension. COMMENTS: The presence of pulmonary emphysema on CT is an independent risk factor for lung cancer. In the absence of a history or active diagnosis of lung cancer, it is recommended that this patient with emphysema be evaluated for enrollment in a low dose CT lung cancer screening program. Abdomen/Pelvis CT 05/26/25 18:00 IMPRESSION: 1. No acute intra-abdominal findings. 2. Diffuse hepatic steatosis. 3. Diverticulosis without any evidence of acute diverticulitis. Lexiscan PERFUSION FINDINGS There is a small to medium sized area of mildly reduced tracer counts in the inferior wall on both the resting and the stress images. Comparison to the tomographic raw images make this finding most consistent with diaphragmatic attenuation artifact. Wall motion in this area is normal which also is consistent with with this defect being consistent with attenuation artifact rather than infarction. FUNCTIONAL RESULTS (calculated via Gated SPECT) Stress Image LV EF (%): 67 Stress EDV (mL):114 TID: 0.94 Stress ESV (mL):38 FUNCTIONAL FINDINGS: There is normal left ventricular systolic function. IMPRESSIONS Myocardial perfusion imaging is normal with no evidence of infarction or ischemia Normal left ventricular cavity size and systolic function with ejection fraction of 67%. Vimal Latif MD, FACC (Electronically Signed) Final Date: 28 May 2025 12:45 Echocardiogram CONCLUSIONS LV systolic function is normal with EF of 60-65% Mild mitral stenosis Mild tricuspid regurgitation. Joey Johnson MD (Electronically Signed) Final Date: 27 May 2025 20:38 Laboratory Results WBC 8.00 10^3/uL (3.29-11.43) 05/28/25 04:01 RBC 4.08 10^6/uL (3.85-5.65) 05/28/25 04:01 Hgb 10.10 g/dL (11.27-16.99) L 05/28/25 04:01 Hct 34.1 % (37-53) L 05/28/25 04:01 MCV 83.6 fl (82-101) 05/28/25 04:01 MCH 24.8 pg (27-33) L 05/28/25 04:01 MCHC 29.6 g/dL (30-55) L 05/28/25 04:01 RDW 17.3 % (12.1-15.1) H 05/28/25 04:01 Plt Count 157 10^3/cmm (157-399) 05/28/25 04:01 MPV 10.0 fL (7.4-10.4) 05/28/25 04:01 Neut % (Auto) 67.6 % 05/28/25 04:01 Lymph % (Auto) 23.3 % 05/28/25 04:01 Blaine % (Auto) 5.0 % 05/28/25 04:01 Eos % (Auto) 3.5 % 05/28/25 04:01 Baso % (Auto) 0.3 % 05/28/25 04:01 Neut # (Auto) 5.42 10^3/uL (1.8-7.7) 05/28/25 04:01 Lymph # (Auto) 1.9 10^3/uL (0.8-4.8) 05/28/25 04:01 Blaine # (Auto) 0.4 10^3/uL (0.2-0.9) 05/28/25 04:01 Eos # (Auto) 0.3 10^3/uL (0.0-0.8) 05/28/25 04:01 Baso # (Auto) 0.0 10^3/uL (0.0-0.1) 05/28/25 04:01 Nucleated RBC % (auto) 0 % 05/28/25 04:01 Nucleated RBCs # 0.0 /100WBC 05/28/25 04:01 PT 13.50 SECONDS (12.1-14.9) 05/26/25 13:18 INR 0.96 (0.8-1.2) 05/26/25 13:18 APTT 45.3 SECONDS (23.9-36.7) H 05/27/25 21:44 Specimen Type Arterial 05/26/25 13:20 Sample Site Brachial, left 05/26/25 13:20 ABG pH 7.36 (7.35-7.45) 05/26/25 13:20 ABG pCO2 38.5 mmHg (35-45) 05/26/25 13:20 ABG pO2 65.3 mmHg (80.0-100.0) L 05/26/25 13:20 ABG PO2/FiO2 Ratio 233 05/26/25 13:20 ABG HCO3 21.7 mmol/L (22-26) L 05/26/25 13:20 ABG O2 Saturation 89.6 05/26/25 13:20 ABG Base Excess -3.4 mmol/L (-2.0-2.0) L 05/26/25 13:20 Kevin Test N/a 05/26/25 13:20 A-a O2 Gradient 11.4 mmHg (5-10) H 05/26/25 13:20 Hematocrit 38.5 % (42-52) L 05/26/25 13:20 Hgb O2 Saturation 87.1 % (95-100) L 05/26/25 13:20 Carboxyhemoglobin 1.8 %THgb (0.4-20.1) 05/26/25 13:20 Methemoglobin 0.9 % (0.4-1.5) 05/26/25 13:20 Total Hemoglobin 12.6 g/dL (14-18) L 05/26/25 13:20 Sodium 147.0 mmol/L (131-143) H 05/26/25 13:20 Potassium 3.2 mmol/L (3.5-5.0) L 05/26/25 13:20 Glucose 114.0 mg/dL (70-115) 05/26/25 13:20 Ionized Calcium 1.2 mmol/L (1.1-1.4) 05/26/25 13:20 O2 Delivery Device Nc 05/26/25 13:20 O2 Liters/Min 2.0 % 05/26/25 13:20 FiO2 28.0 % 05/26/25 13:20 Motorsports Technician ID Amh 05/26/25 13:20 Sodium 140 mmol/L (136-145) 05/28/25 04:01 Potassium 4.2 mmol/L (3.5-5.1) 05/28/25 04:01 Chloride 110 mmol/L (98-107) H 05/28/25 04:01 Carbon Dioxide 21 mmol/L (22-29) L 05/28/25 04:01 Anion Gap 13.2 (5-19) 05/28/25 04:01 BUN 18 mg/dL (8-23) 05/28/25 04:01 Creatinine 1.2 mg/dL (0.7-1.2) 05/28/25 04:01 GFR Calculation Not Reportable 05/28/25 04:01 Glucose 82 mg/dL (65-115) 05/28/25 04:01 POC Glucose 178 mg/dL (70-110) H 05/26/25 13:15 Estimat Average Glucose 103 05/26/25 13:18 Hemoglobin A1c 5.2 % (4.0-6.0) 05/26/25 13:18 Calculated Osmolality 291 mOsm/kg (285-295) 05/28/25 04:01 Lactic Acid 4.3 mmol/L (0.5-2.2) H* 05/26/25 13:18 Lactic Acid (Sepsis) 3.2 mmol/L (0.5-2.2) H 05/26/25 15:37 Calcium 8.3 mg/dL (8.5-10.5) L 05/28/25 04:01 Phosphorus 2.8 mg/dL (2.5-4.5) 05/28/25 04:01 Magnesium 1.7 mg/dL (1.7-2.3) 05/28/25 04:01 Iron 71 ug/dL (59-158) 05/26/25 13:18 TIBC 367 mcg/dl 05/26/25 13:18 % Saturation 19.3 % (20-50) L 05/26/25 13:18 Unsat Iron Binding 296 ug/dL (112-347) 05/26/25 13:18 Total Bilirubin 0.6 mg/dL (0.15-1.2) 05/28/25 04:01 AST 32 U/L (0-40) 05/28/25 04:01 ALT 15 U/L (0-41) 05/28/25 04:01 Alkaline Phosphatase 83 U/L (40-130) 05/28/25 04:01 Ammonia 26 umol/L (16-60) 05/26/25 13:18 Troponin T Baseline 44 ng/L (0-15) H 05/26/25 13:18 Troponin T 120 Minute 111.9 ng/L (0-15) H 05/26/25 15:37 Delta Troponin T 67.9 ABS# (0-10) H* 05/26/25 15:37 Troponin T Hi Sens 6Hr 238.7 ng/L (0-15) H 05/26/25 19:09 Troponin T Hi Sens 6Hr Delta 194.7 ng/L (0-12) H* 05/26/25 19:09 Total Protein 5.7 g/dL (6.6-8.7) L 05/28/25 04:01 Albumin 3.0 g/dL (3.5-5.2) L 05/28/25 04:01 Globulin 2.7 g/dL (1.3-4.6) 05/28/25 04:01 Triglycerides 105 mg/dL (0-150) 05/27/25 03:47 Cholesterol 145 mg/dL (0-200) 05/27/25 03:47 LDL Cholesterol, Calc 88 mg/dL (50-129) 05/27/25 03:47 HDL Cholesterol 36 mg/dL (60-100) L 05/27/25 03:47 LDL/HDL Ratio 2.44 RATIO (0.00-3.22) 05/27/25 03:47 Cholesterol/HDL Ratio 4.03 mg/dL (1.0-5.00) 05/27/25 03:47 Lipase 48 U/L (13-60) 05/26/25 13:18 Vitamin B12 338 pg/mL (232-1245) 05/26/25 19:09 Folate 2.1 ng/mL (4.5-32.2) L 05/27/25 03:47 Procalcitonin 0.12 ng/mL (0-0.5) 05/27/25 03:47 TSH 3.92 uIU/mL (0.27-4.20) 05/26/25 13:18 Nasal MRSA (PCR) Not detected (Negative) 05/26/25 19:10 Salicylates < 0.3 mg/dL (3-10) L 05/26/25 13:18 Acetaminophen < 5.0 ug/mL (10-30) L 05/26/25 13:18 Ethyl Alcohol 195 mg/dL (0-10) H 05/26/25 13:18 Serum Ketones Negative (Negative) 05/26/25 13:18 Vitals Last Vital Signs Temp 97.4 F L 05/28/25 12:00 Pulse 68 05/28/25 12:00 Resp 19 H 05/28/25 12:00 BP 149/82 05/28/25 12:00 Pulse Ox 95 05/28/25 10:30 O2 Del Method Room Air 05/27/25 17:00 Discharge Plan Discharge Patient Disposition: Home Condition: Stable Prescriptions: New metoprolol tartrate 25 mg Tablet 12.5 mg PO BID@0900,2100 30 Days Qty: 30 0RF Continued venlafaxine 75 mg capsule,extended release 24hr 75 mg PO DAILY gabapentin 600 mg tablet 600 mg PO BID levetiracetam 500 mg tablet 500 mg PO DAILY omeprazole 40 mg capsule,delayed release(DR/EC) 40 mg PO QAM tamsulosin 0.4 mg capsule 0.4 mg PO BID trazodone 150 mg tablet 150 mg PO BEDTIME testosterone cypionate 200 mg/mL oil 200 mg IM Q30D albuterol sulfate 90 mcg/actuation HFA aerosol inhaler 2 puff INHALATION Q4H PRN (Reason: Shortness Of Breath) finasteride 5 mg tablet 5 mg PO DAILY albuterol sulfate 2.5 mg /3 mL (0.083 %) solution for nebulization 2.5 mg inhalation Q4H multivitamin with folic acid [Thera] 400 mcg Tablet 1 tab PO DAILY Qty: 90 0RF rosuvastatin 20 mg tablet 20 mg PO DAILY Trelegy Ellipta 200-62.5-25 mcg blister with device 1 ea INHALATION DAILY Changed lisinopril 20 mg tablet 40 mg PO DAILY 30 Days Qty: 60 0RF Discontinued diclofenac sodium 50 mg tablet,delayed release (DR/EC) 50 mg PO BID Discharge Order = DC NOW: Discharge Order (Routine); Ordered 05/28/25 Ordered By: Ja Burns Other Ambulatory Orders: MCT/Event Monitor 21 Days (Routine) Timeframe: 1 Week Facility: [facility] - Location: Radiology Ordered By: Ja Burns Referrals: Howard Kelly DO [Primary Care Provider, Family Practice] - 7-10 days Discharge Diet: Cardiac Patient Instructions: Opioid Safety, Patient Portal & [place] Instructions Activity Restrictions/Additional Instructions: Goal blood pressure is between 100-140 systolic. Dose of lisinopril has been increased to 40 mg daily. Metoprolol 12.5 mg twice daily has been added to your medication list. Please try to avoid alcohol use. Please maintain your oral intake of liquid up to 50 ounces daily. Dc delayed as patient discharged after Lexiscan stress test have resulted. Discharge Attestations Time Spent in Discharge Care*: greater than 30 min Specific Discharge Activities: educating patient, educating and/or supporting family/caregiver, discussing with pcp/other providers, discussing with nurse case management/social workers/dc planners, documenting/other paperwork and evaluating patient/reviewing data Status at Discharge: Cognitive status at discharge: mildly impaired cognition, Behavioral status at discharge: cooperative and can be uncooperative, Functional status at discharge: independent ambulation, Overall status at discharge: patient is back to baseline Quality Metrics Clinical Quality Measures [ No reported AMI, CVA or VTE this stay] Coding Level of Care Code 61870 Total time (in minutes) for Discharge: 65 Diagnoses Shock R57.9 Atrial fibrillation with RVR I48.91 Non-ST elevation CA (NSTEMI) I21.4 Acute kidney injury N17.9 Intoxication Dehydration E86.0 Elevated lactic acid level R79.89
--- NOTE | 2025-05-28 14:20 | PC.NURSE ---
1415 Up to bedside commode, had small loose stool. Put pants on in prep to go home as soon as the Event Monitor is delivered.
--- NOTE | 2025-05-28 14:22 | NMCV_ITS ---
NM lorenzo perf SPECT r/s* [id number] Ramy Julio Age: 74 Gender: M : 1950 Exam Date: 05/28/2025 07:45 Ordering Phys: Ja Burns MD Technologist: ARIEL Jerez Exam Location: [facility] Indications: cp STRESS TEST [facility] IMAGE PROTOCOL Rest/Stress 1 Lexiscan Day Radiopharmaceutical Dose (mCi) Administration Site Administered by Rest: Tc-99m 10.5 IV Lizabeth Atkins, [place] [place] Sestamibi Stress:Tc-99m 33 IV Lizabeth Chingle, [place] [place] Sestamibi Rest: 28-May-2025 60 Discovery 630 Stress: 28-May-2025 30 Discovery 630 0.4mg Lexiscan. Images obtained in supine and prone position. SPECT RESULTS Technical Quality: Good Raw Data Analysis: Normal Image Corrections: No attenuation or motion correction applied Summed Stress Score: 3 Summed Rest Score: 8 Summed Difference Score: 0 PERFUSION FINDINGS There is a small to medium sized area of mildly reduced tracer counts in the inferior wall on both the resting and the stress images. Comparison to the tomographic raw images make this finding most consistent with diaphragmatic attenuation artifact. Wall motion in this area is normal which also is consistent with with this defect being consistent with attenuation artifact rather than infarction. FUNCTIONAL RESULTS (calculated via Gated SPECT) Stress Image LV EF (%): 67 Stress EDV (mL):114 TID: 0.94 Stress ESV (mL):38 FUNCTIONAL FINDINGS: There is normal left ventricular systolic function. IMPRESSIONS Myocardial perfusion imaging is normal with no evidence of infarction or ischemia Normal left ventricular cavity size and systolic function with ejection fraction of 67%. Vimal Latif MD, FACC (Electronically Signed) Final Date: 28 May 2025 12:45 S
--- NOTE | 2025-05-28 15:03 | PC.NURSE ---
7039 complaining of lower back pain, ask for pain med, given. Removed Iv's and placed event monitor on, gave home instructions and paperwork, brother on way to picker and sorter load and unload to take home.
== END 2025-05-28 15:20 | disposition home or self-care (01) | DRG 871 ==
LOC: ER 15:36 → ICU 17:24
PROVIDERS: Student in an Organized Health Care Education/Training Program; Admitting Provider Student in an Organized Health Care Education/Training Program; Emergency Provider Family Medicine; PCP Electrodiagnostic Medicine; Visit Provider Student in an Organized Health Care Education/Training Program
DX: A41.9 Sepsis, unspecified organism (principal); R57.0 Cardiogenic shock; N17.9 Acute kidney failure, unspecified; F10.239 Alcohol dependence with withdrawal, unspecified; I48.0 Paroxysmal atrial fibrillation; F10.229 Alcohol dependence with intoxication, unspecified; Y90.6 Blood alcohol level of 120-199 mg/100 ml; E86.0 Dehydration; I10 Essential (primary) hypertension; F41.9 Anxiety disorder, unspecified; F32.A Depression, unspecified; N40.0 Benign prostatic hyperplasia without lower urinary tract symptoms; K21.9 Gastro-esophageal reflux disease without esophagitis; G89.29 Other chronic pain; M54.9 Dorsalgia, unspecified; Z79.51 Long term (current) use of inhaled steroids
CPT/HCPCS: 36415; 36416; 36600; 70450; 71045; 71275; 74176; 78452; 80051; 80053; 80061; 80307; 82009; 82140; 82330; 82607; 82746; 82805; 82962; 83036; 83540; 83550; 83605; 83690; 83735; 84100; 84145; 84443; 84484; 85025; 85610; 85730; 87040; 93005; 93017; 93306; 96365; 96367; 96372; 96375; 99291; 99292; A4222; A9500; J0282; J0283; J1644; J2060; J2270; J2470; J2543; J2785; J3372; J3373; J3411; J7030; J9999